=== PATIENT | male | born 1970 ===

== ENCOUNTER 2016-05-18 09:09 | Emergency (ER) | payer OTHER ==
[2016-05-18 09:09] VITALS: BMI 30.7
[2016-05-18 09:21] VITALS: O2SAT 98
--- NOTE | 2016-05-18 09:32 | C.PDOC ---
History Of Present Illness 45 yr old male presents to the ER with complaints of exacerbated back pain since 03/2016. Patient states the pain is similar to prior pain. States the pain initially started 2 years ago but would only last several weeks and spontaneously resolved but the current pain is more persistent. Patient states the pain is generalized lower back, describes it as "burning". Also saw PMD for same pain and had a LS Spine XRay on 05/03/2016 which showed degenerative changes. PMD informed patient his US had blood in urine, "maybe kidney stones?" . Patient denies fever, nausea, vomiting, abdominal pain, diarrhea, dysuria, polyuria, weakness or numbness. Patient states the pain is worse when he is sitting. EXAC BACK PAIN SINCE 03/2016. PS SIM TO PRIOR, INITIALLY FIRST STARTED 2 YRS AGO BUT WOULD ONLY LAST SEV WEEKS THEN SPONT RESOLVED. CURRENT PAIN MORE PERSIST. GENERALIZED LOWER BACK, "BURNING". SAW PMD FOR SAME. LS SPINE 05/03/16 = DEGEN CHANGES. PT PMD TOLD HIM UA HAD BLOOD IN URINE "MAYBE KIDNEY STONE?". DENIES DYSURIA, POLYURIA. PAIN WORSE WHEN SITTING. NO ASSOC WEAK NUMB, WT LOSS EXAM NAD BACK NONTEND, AROM WO DIFF NO CVAT REMAINDER NEG Time Seen by Provider: 05/18/16 09:31 Chief Complaint (Nursing): Back Pain History Per: Patient History/Exam Limitations: no limitations Onset/Duration Of Symptoms: Persistent (since 03/2016) Current Symptoms Are (Timing): Still Present Past Medical History Reviewed: Historical Data, Nursing Documentation, Vital Signs Vital Signs: Last Vital Signs Temp 98.0 F 05/18/16 12:28 Pulse 89 05/18/16 12:28 Resp 20 05/18/16 12:28 BP 122/84 05/18/16 12:28 Pulse Ox 98 05/18/16 12:28 - Medical History PMH: Pneumonia Family History: States: No Known Family Hx - Social History Hx Tobacco Use: No Hx Alcohol Use: Yes Hx Substance Use: No - Immunization History Hx Tetanus Toxoid Vaccination: No Hx Influenza Vaccination: No Hx Pneumococcal Vaccination: No Review Of Systems Except As Marked, All Systems Reviewed And Found Negative. Constitutional: Negative for: Fever Gastrointestinal: Negative for: Nausea, Vomiting, Abdominal Pain, Diarrhea Genitourinary: Positive for: Other (No polyuria). Negative for: Dysuria Musculoskeletal: Positive for: Back Pain (Low back pain) Neurological: Negative for: Weakness, Numbness Physical Exam - Physical Exam Appears: Non-toxic, No Acute Distress Skin: Warm, Dry Head: Atraumatic, Normacephalic Eye(s): bilateral: Normal Inspection, PERRL, EOMI Neck: Normal, Normal ROM, No Paracervical Tenderness, No Step Off Deformity, Supple Chest: Symmetrical, No Tenderness Cardiovascular: Rhythm Regular, No Murmur Respiratory: Normal Breath Sounds, No Rales, No Rhonchi, No Stridor, No Wheezing Gastrointestinal/Abdominal: Normal Exam, Soft, No Tenderness, No Guarding, No Rebound Back: Normal Inspection, No CVA Tenderness, No Vertebral Tenderness, No Decreased ROM, No Paraspinal Tenderness Extremity: Normal ROM, No Swelling Neurological/Psych: Oriented x3, Normal Speech, Normal Motor ED Course And Treatment O2 Sat by Pulse Oximetry: 98 - CT Scan/US CT - Abd & Pelvis Other Rad Studies (CT/US): Read By Radiologist, Radiology Report Reviewed CT/US Interpretation: PROCEDURE: CT Abdomen and Pelvis without Oral or IV contrast. HISTORY: FLANK PAIN, HEMATURIA. COMPARISON: CT abdomen and pelvis without contrast performed 07/09/15. TECHNIQUE: Contiguous axial images of the abdomen and pelvis. No oral or IV contrast administered. Coronal and Sagittal reformats generated and reviewed. Radiation dose: Total exam DLP = 594.30 mGy- cm. FINDINGS: There is limited evaluation of the solid organs without the administration of IV contrast. LOWER THORAX: Subtle air trapping at the right lung base may reflect small vessel/small airways disease. No visible consolidation, pleural effusion, or pneumothorax. Mild distal esophageal wall thickening/tiny hiatal hernia. LIVER: Unremarkable unenhanced appearance. GALLBLADDER AND BILE DUCTS: Unremarkable unenhanced appearance. PANCREAS: Unremarkable unenhanced appearance. SPLEEN: Unremarkable unenhanced appearance. ADRENALS: Unremarkable unenhanced appearance. KIDNEYS AND URETERS : No hydronephrosis or obstructing renal calculus. BLADDER: Under distention of the urinary bladder limits evaluation. REPRODUCTIVE: Unremarkable. APPENDIX: The appendix appears within normal limits of caliber. No secondary signs of acute appendicitis. BOWEL: The stomach is nondistended. Lack of oral contrast limits evaluation for bowel pathology. The bowel loops appear within normal limits of caliber without evidence of intestinal obstruction. Moderate constipation. PERITONEUM: No significant free fluid. No definite free air. LYMPH NODES: No bulky lymphadenopathy identified. VASCULATURE: No aortic aneurysm. BONES: No acute osseous abnormality is detected. OTHER FINDINGS: None. IMPRESSION: Subtle air trapping at the right lung base may reflect small vessel/small airways disease. Moderate constipation. Mild distal esophageal wall thickening/tiny hiatal hernia. Progress - Re-Evaluation Re-evaluation Note: 05/18/16 12:13 ADVISED FU PMD, POSSIBLE NEPHRO - Data Reviewed Data Reviewed: Lab, Diagnostic imaging, Old records - Continuity of Care Discussed patient case with:: Patient Medical Decision Making Medical Decision Making: PLAN: * CT - Abd & Pelvis * Urinalysis Disposition Counseled Patient/Family Regarding: Studies Performed, Diagnosis, Need For Followup, Rx Given - Disposition Referrals: YOUR,P[facility] [Other] [facility] [Outside] Disposition: HOME/ ROUTINE Disposition Time: 12:14 Condition: GOOD Prescriptions: Acetaminophen/Codeine [Tylenol/Codeine 300 MG/30 MG] 2 tab PO Q6H #20 tab Instructions: Acute Hematuria (ED), Chronic Back Pain (ED) - Clinical Impression Clinical Impression: Hematuria, Chronic back pain - Scribe Statement The provider has reviewed the documentation as recorded by the Chelseaibclau Schuler Provider Attestation: All medical record entries made by the Chelseaibclau were at my direction and personally dictated by me. I have reviewed the chart and agree that the record accurately reflects my personal performance of the history, physical exam, medical decision making, and the department course for this patient. I have also personally directed, reviewed, and agree with the discharge instructions and disposition.
[2016-05-18 10:06] LABS: RBC URINE 7 /hpf (0-3); URINE BILIRUBIN NEGATIVE (NEGATIVE); URINE BLOOD 2+ (NEGATIVE); URINE COLOR Yellow (YELLOW); URINE GLUCOSE (UA) NORMAL (Normal); URINE KETONE NEGATIVE (NEGATIVE); URINE LEUKOCYTE ESTERASE NEG Leu/uL (Negative); URINE PROTEIN NEGATIVE (NEGATIVE); URINE UROBILINOGEN NORMAL mg/dL (0.2-1.0); WBC URINE < 1 /hpf (0-5)
--- NOTE | 2016-05-18 11:59 | CT ---
PROCEDURE: CT Abdomen and Pelvis without Oral or IV contrast. HISTORY: FLANK PAIN, HEMATURIA COMPARISON: CT abdomen and pelvis without contrast performed 07/09/15 TECHNIQUE: Contiguous axial images of the abdomen and pelvis. No oral or IV contrast administered. Coronal and Sagittal reformats generated and reviewed. Radiation dose: Total exam DLP = 594.30 mGy-cm. FINDINGS: There is limited evaluation of the solid organs without the administration of IV contrast. LOWER THORAX: Subtle air trapping at the right lung base may reflect small vessel/small airways disease. No visible consolidation, pleural effusion, or pneumothorax. Mild distal esophageal wall thickening/tiny hiatal hernia. LIVER: Unremarkable unenhanced appearance. GALLBLADDER AND BILE DUCTS: Unremarkable unenhanced appearance. PANCREAS: Unremarkable unenhanced appearance. SPLEEN: Unremarkable unenhanced appearance. ADRENALS: Unremarkable unenhanced appearance. KIDNEYS AND URETERS: No hydronephrosis or obstructing renal calculus. BLADDER: Under distention of the urinary bladder limits evaluation. REPRODUCTIVE: Unremarkable. APPENDIX: The appendix appears within normal limits of caliber. No secondary signs of acute appendicitis. BOWEL: The stomach is nondistended. Lack of oral contrast limits evaluation for bowel pathology. The bowel loops appear within normal limits of caliber without evidence of intestinal obstruction. Moderate constipation. PERITONEUM: No significant free fluid. No definite free air. LYMPH NODES: No bulky lymphadenopathy identified. VASCULATURE: No aortic aneurysm. BONES: No acute osseous abnormality is detected. OTHER FINDINGS: None. IMPRESSION: Subtle air trapping at the right lung base may reflect small vessel/small airways disease. Moderate constipation. Mild distal esophageal wall thickening/tiny hiatal hernia.
[2016-05-18 12:30] VITALS: BP 122/84; PULSE 89; RESP 20; TEMP 98
== END 2016-05-18 12:28 | disposition home or self-care (01) ==
LOC: C.ER 09:09
DX: G89.29 Other chronic pain (principal); M54.5 Low back pain; R31.9 Hematuria, unspecified

== ENCOUNTER 2017-03-27 12:13 | Emergency (ER) | payer SELFPAY ==
[2017-03-27 12:14] VITALS: BMI 29.4
[2017-03-27 12:54] VITALS: BP 112/79
--- NOTE | 2017-03-27 13:03 | C.PDOC ---
History Of Present Illness 46-year-old male, presents to the emergency department with complaints at this time five day duration of cough, subjective fever, runny nose. States someone at home with similar symptoms. Denies vomiting, diarrhea, rash, travel, chest pain, shortness of breath, or any other associated symptoms. No other complaints at this time. Time Seen by Provider: 03/27/17 12:59 Chief Complaint (Nursing): Flu-like Symptoms History Per: Patient History/Exam Limitations: no limitations Past Medical History Reviewed: Historical Data, Nursing Documentation, Vital Signs Vital Signs: Last Vital Signs Temp 98.7 F 03/27/17 14:35 Pulse 89 03/27/17 14:35 Resp 16 03/27/17 14:35 BP 112/79 03/27/17 12:49 Pulse Ox 98 03/27/17 14:35 - Medical History PMH: Pneumonia Denies: Asthma (PT DENIES), HTN (PT DENIES) Family History: States: No Known Family Hx - Social History Hx Tobacco Use: No Hx Alcohol Use: Yes Hx Substance Use: No - Immunization History Hx Tetanus Toxoid Vaccination: No Hx Influenza Vaccination: No Hx Pneumococcal Vaccination: No Review Of Systems Constitutional: Positive for: Fever ENT: Negative for: Nose Discharge Respiratory: Positive for: Cough. Negative for: Shortness of Breath Gastrointestinal: Negative for: Vomiting Physical Exam - Physical Exam Appears: Non-toxic, No Acute Distress Skin: Warm, Dry, No Rash Head: Atraumatic, Normacephalic Eye(s): bilateral: Normal Inspection, PERRL, EOMI Nose: Normal Oral Mucosa: Moist Lips: Normal Appearing Throat: No Erythema, No Exudate Neck: Normal ROM, Supple Chest: Symmetrical Cardiovascular: Rhythm Regular, No Friction Rub, No Murmur Respiratory: Normal Breath Sounds, No Accessory Muscle Use, No Rales, No Rhonchi , No Wheezing Gastrointestinal/Abdominal: Soft, No Tenderness Extremity: Normal ROM, No Swelling Neurological/Psych: Oriented x3, Normal Speech, Normal Cranial Nerves, Normal Motor Gait: Steady ED Course And Treatment O2 Sat by Pulse Oximetry: 99 (RA) Pulse Ox Interpretation: Normal Disposition - Disposition Referrals: [facility] [Outside] Disposition: HOME/ ROUTINE Disposition Time: 14:15 Condition: GOOD Additional Instructions: Follow up with the medical doctor within 1-2 days. Return if worsened. Prescriptions: Acetaminophen [Tylenol] 325 mg PO Q6 PRN #30 tab PRN Reason: Pain, Mild (1-3) Loratadine [Claritin] 10 mg PO DAILY #10 tab predniSONE [Prednisone] 20 mg PO BID #10 tab Instructions: Viral Syndrome (ED) Forms: [employer] (Afghan) - Clinical Impression Clinical Impression: Influenza-like illness - Scribe Statement The provider has reviewed the documentation as recorded by the Scribe (Shara Pickett) All medical record entries made by the Scribe were at my direction and personally dictated by me. I have reviewed the chart and agree that the record accurately reflects my personal performance of the history, physical exam, medical decision making, and the department course for this patient. I have also personally directed, reviewed, and agree with the discharge instructions and disposition.
--- NOTE | 2017-03-27 13:51 | RAD ---
HISTORY: cough, fever COMPARISON: None available. TECHNIQUE: Chest PA and lateral FINDINGS: LUNGS: No focal consolidation. Please note that chest x-ray has limited sensitivity for the detection of pulmonary masses. PLEURA: No significant pleural effusion identified. No definite pneumothorax . CARDIOVASCULAR: The cardiomediastinal silhouette appears within normal limits of size. OSSEOUS STRUCTURES: No acute osseous abnormality identified. VISUALIZED UPPER ABDOMEN: Unremarkable. OTHER FINDINGS: None. IMPRESSION: No focal consolidation, significant pleural effusion, or definite pneumothorax identified.
[2017-03-27 14:36] VITALS: PULSE 89; RESP 16; TEMP 98.7
[2017-03-27 23:46] VITALS: O2SAT 99
== END 2017-03-27 14:35 | disposition home or self-care (01) ==
LOC: C.ER 12:13
DX: J11.1 Influenza due to unidentified influenza virus with other respiratory manifestations (principal)

== ENCOUNTER 2017-05-11 10:26 | Emergency (ER) | payer SELFPAY ==
[2017-05-11 10:26] VITALS: BMI 29.4
[2017-05-11 10:36] VITALS: RESP 18; O2SAT 98
--- NOTE | 2017-05-11 12:12 | C.PDOC ---
History Of Present Illness 46 y/o male presents to the emergency room complaining of room-spinning sensation since 6:00 this morning. States he had vertigo 3 years ago. Patient describes sensation of things spinning when he turns his head left, and feels off-balance when walking. No nausea, vomiting, fever, or headache. Time Seen by Provider: 05/11/17 11:49 Chief Complaint (Nursing): Dizziness/Lightheaded History Per: Patient History/Exam Limitations: no limitations Onset/Duration Of Symptoms: Hrs Current Symptoms Are (Timing): Still Present Fall Associated With With Symptoms: No Past Medical History Reviewed: Historical Data, Nursing Documentation, Vital Signs Vital Signs: Last Vital Signs Temp 98.6 F 05/11/17 11:46 Pulse 72 05/11/17 11:46 Resp 18 05/11/17 11:46 BP 129/86 05/11/17 11:46 Pulse Ox 98 05/11/17 14:39 - Medical History PMH: Benign Prostatic Hyperplasia, Pneumonia Denies: Asthma (PT DENIES) Comment Only: HTN (PT DENIES) Other PMH: Vertigo Surgical History: No Surg Hx Family History: States: Unknown Family Hx - Social History Hx Tobacco Use: No Hx Alcohol Use: Yes Hx Substance Use: No - Immunization History Hx Tetanus Toxoid Vaccination: No Hx Influenza Vaccination: No Hx Pneumococcal Vaccination: No Review Of Systems Constitutional: Negative for: Fever Gastrointestinal: Negative for: Nausea, Vomiting Neurological: Positive for: Dizziness (room spinning). Negative for: Headache Physical Exam - Physical Exam Appears: No Acute Distress Skin: Warm, Dry, No Rash Head: Atraumatic, Normacephalic Eye(s): bilateral: PERRL, EOMI (with a few extra beats of nystagmus bilaterally) Ear(s): Bilateral: Normal Nose: Normal Neck: Supple Chest: No Tenderness Cardiovascular: Rhythm Regular, No Murmur Respiratory: No Rales, No Rhonchi, No Wheezing, Other (clear to auscultation bilaterally) Extremity: Bilateral: Atraumatic, Normal Color And Temperature, Normal ROM Neurological/Psych: Oriented x3, Normal Speech, Normal Cranial Nerves, Normal Motor, Normal Sensation, Other (ROBERT intact, finger to nose intact, no pronator drift) Gait: Steady ED Course And Treatment ECG: Interpreted By Me, Viewed By Me ECG Rhythm: Sinus Rhythm ECG Interpretation: Normal Rate From EC O2 Sat by Pulse Oximetry: 98 (RA) Pulse Ox Interpretation: Normal Medical Decision Making Medical Decision Making: Time: 12:22 Initial Plan: * Meclizine 25 mg PO * Reevaluation 230 pm pt feeling better after meclizine. gait steady, has mild residual vertigo hen looking left. will d/c home wiht meclizine, neuro and med f/u Disposition Counseled Patient/Family Regarding: Diagnosis, Need For Followup, Rx Given - Disposition Referrals: Consuelo Calero MD [Staff Provider] - Rebekah Barth MD [Staff Provider] - Disposition: HOME/ ROUTINE Disposition Time: 14:37 Condition: IMPROVED Additional Instructions: Please take medication as prescribed. Follow up with Neurologist Dr Calero and with Dr Barth in medical clinic. Return to ER for any worse symptoms. Prescriptions: Meclizine [Meclizine*] 25 mg PO Q6 #30 tab Instructions: Vertigo (a Type of Dizziness) (DC), Vestibular Exercises Forms: [employer] (Kazakh), General Discharge Instructions - Clinical Impression Clinical Impression: Vertigo - PA / ANALYSIS CONSULTANT / Resident Statement MD/DO has reviewed & agrees with the documentation as recorded. - Scribe Statement The provider has reviewed the documentation as recorded by the Scribe (Iris Brooks) All medical record entries made by the Scribe were at my direction and personally dictated by me. I have reviewed the chart and agree that the record accurately reflects my personal performance of the history, physical exam, medical decision making, and the department course for this patient. I have also personally directed, reviewed, and agree with the discharge instructions and disposition.
[2017-05-11 15:25] VITALS: BP 122/79; PULSE 80; TEMP 97.9
--- NOTE | 2017-05-14 16:38 | CARD ---
APPROVED REPORT EKG Measurement Heart [id number] <Conclusion> Normal sinus rhythm with sinus arrhythmia Normal ECG
--- NOTE | 2017-05-14 16:38 | CARD ---
APPROVED REPORT EKG Measurement Heart [id number] MI [id number] <Conclusion> Normal sinus rhythm Normal ECG
== END 2017-05-11 15:24 | disposition home or self-care (01) ==
LOC: C.ER 10:26
DX: R42 Dizziness and giddiness (principal); N40.0 Benign prostatic hyperplasia without lower urinary tract symptoms

== ENCOUNTER 2017-09-02 08:29 | Emergency (ER) | payer SELFPAY ==
[2017-09-02 08:30] VITALS: BMI 29.4
[2017-09-02] MEDS ORDERED: Sodium Chloride 0.9% 1,000 ML IV ONE (08:50)
[2017-09-02] MEDS ORDERED: Sodium Chloride 0.45% 1,000 ML IV ONE (09:13)
[2017-09-02 09:19] LABS: BASO % 0.7 % (0.0-2.0); EOS # 0.1 K/uL (0.0-0.7); EOS % 1.6 % (0.0-4.0); HEMOGLOBIN 14.6 g/dL (12.0-18.0); LYMPH # 2.1 K/uL (1.0-4.3); LYMPH % 31.3 % (20.0-40.0); MEAN CELL VOLUME 83.7 fL (80.0-94.0); MEAN CORPUSCULAR HEMOGLOBIN 28.6 pg (27.0-31.0); MEAN CORPUSCULAR HGB CONC 34.1 g/dL (33.0-37.0); MEAN PLATELET VOLUME 7.8 fL (7.2-11.7); MONO # 0.4 K/uL (0.0-0.8); MONO % 6.1 % (0.0-10.0); NEUT # 4.1 K/uL (1.8-7.0); NEUT % 60.3 % (50.0-75.0); RBC 5.11 Mil/uL (4.40-5.90); RED CELL DISTRIBUTION WIDTH 13.5 % (11.5-14.5); WHITE BLOOD COUNT 6.7 K/uL (4.8-10.8)
[2017-09-02 09:25] LABS: URINE BILIRUBIN NEGATIVE (NEGATIVE); URINE BLOOD 1+ (NEGATIVE); URINE CLARITY Clear (Clear); URINE COLOR Yellow (YELLOW); URINE GLUCOSE (UA) NORMAL (Normal); URINE LEUKOCYTE ESTERASE NEG Leu/uL (Negative); URINE PROTEIN NEGATIVE (NEGATIVE)
[2017-09-02 09:38] LABS: ALB/GLOB RATIO 1.4 (1.0-2.1); ALBUMIN 4.2 g/dL (3.5-5.0); ALT/SGPT 36 U/L (21-72); AST/SGOT 29 U/L (17-59); BLOOD UREA NITROGEN 12 mg/dL (9-20); CALCIUM 8.6 mg/dl (8.6-10.4); GFR AFRICAN-AMERICAN > 60; GFR NON-AFRICAN AMERICAN > 60; LIPASE 94 U/L (23-300)
--- NOTE | 2017-09-02 10:01 | C.PDOC ---
History Of Present Illness 47 yo male come in for evaluation of intermittent Right flank pain for past 3 days. Pt sts, pain was relived by Naproxyn at home " but today medication did not help and pain radiating to my stomach area". Pt reports, pain is constant since this AM, nausea, non-radiating. Otherwise, pt denies fever, chills, sore throat, CP, SOB, dyspnea, abd. pain, V/D, UTI sx, hematuria. Denies previous hx of kidney stones. Ambulate to Ed for evaluation, appears in pain. Time Seen by Provider: 09/02/17 08:37 Chief Complaint (Nursing): Abdominal Pain History Per: Patient Past Medical History Reviewed: Historical Data, Nursing Documentation, Vital Signs Vital Signs: Last Vital Signs Temp 98.2 F 09/02/17 08:40 Pulse 94 H 09/02/17 08:40 Resp 18 09/02/17 08:40 BP 154/76 H 09/02/17 08:40 Pulse Ox 98 09/02/17 08:40 - Medical History PMH: Arthritis, Benign Prostatic Hyperplasia, Pneumonia Denies: Asthma (PT DENIES) Comment Only: HTN (PT DENIES) Family History: States: Unknown Family Hx - Social History Hx Tobacco Use: No Hx Alcohol Use: Yes Hx Substance Use: No - Immunization History Hx Tetanus Toxoid Vaccination: No Hx Influenza Vaccination: No Hx Pneumococcal Vaccination: No Review Of Systems Except As Marked, All Systems Reviewed And Found Negative. Constitutional: Negative for: Fever, Chills Eyes: Negative for: Vision Change ENT: Negative for: Throat Pain, Throat Swelling Cardiovascular: Negative for: Chest Pain, Palpitations Respiratory: Negative for: Cough, Shortness of Breath, Wheezing Gastrointestinal: Positive for: Nausea. Negative for: Vomiting, Abdominal Pain , Diarrhea Genitourinary: Negative for: Dysuria, Frequency, Incontinence Musculoskeletal: Positive for: Back Pain Skin: Negative for: Rash Neurological: Negative for: Altered Mental Status, Headache, Dizziness Physical Exam - Physical Exam Appears: Well, Non-toxic, No Acute Distress Skin: Normal Color, Warm, Dry, No Rash Head: Normacephalic Eye(s): bilateral: PERRL Nose: No Flaring, No Discharge Oral Mucosa: Moist Throat: No Erythema, No Drooling Neck: Trachea Midline, Supple Cardiovascular: Rhythm Regular, No Murmur, No JVD Respiratory: No Decreased Breath Sounds, No Accessory Muscle Use, No Stridor, No Wheezing Gastrointestinal/Abdominal: Soft, Tenderness (mild RUQ tenderness), No Distention, No Guarding, No Rebound Back: No CVA Tenderness, Other (Right flank tenderness) Extremity: Normal ROM, No Pedal Edema, No Deformity, No Swelling Neurological/Psych: Oriented x3, Normal Speech ED Course And Treatment - Laboratory Results Result Diagrams: 09/02/17 09:15 09/02/17 09:15 Lab Interpretation: Normal O2 Sat by Pulse Oximetry: 98 Pulse Ox Interpretation: Normal - CT Scan/US CT abd/pelvis Other Rad Studies (CT/US): Interpreted By Me CT/US Interpretation: Creator : Andrzej Greco MD. Dictator : Sparmaker : Discharge Rn : Andrzej Greco MD. Approver2 : Report Date : 09/02/2017 10: 40:48. My Comment : . PROCEDURE: CT Abdomen and Pelvis with Oral contrast. HISTORY: Right flank pain. COMPARISON: Comparison made with CT scan abdomen pelvis 05/18/2016. TECHNIQUE: Contiguous axial images of the abdomen and pelvis are performed without oral or intravenous contrast material. Additional 2D sagittal and coronal reformats generated. . Radiation dose: Total exam DLP = 542.96 mGy-cm. This CT exam was performed using one or more of the following dose reduction techniques: Automated exposure control, adjustment of the mA and/or kV according to patient size, and/or use of iterative reconstruction technique. FINDINGS: LOWER THORAX: Heart size normal. No significant pericardial effusion. There is a tiny hiatal hernia. Lung bases clear. LIVER: Unremarkable. No gross lesion or ductal dilatation. GALLBLADDER AND BILE DUCTS: Unremarkable. PANCREAS: Unremarkable. No mass. No ductal dilatation. SPLEEN: Unremarkable. No splenomegaly. ADRENALS: Unremarkable. KIDNEYS AND URETERS: Unremarkable. No stone or hydronephrosis. No renal mass or collection. BLADDER: Urinary bladder incompletely distended which in part accounts slight thick-walled appearance. . Muscular hypertrophy presumably contributes. Correlation with urinalysis suggested. REPRODUCTIVE: Unremarkable. APPENDIX: Normal appendix best seen on coronal image 57- 63. BOWEL: Evaluation of the bowel is somewhat limited due to the lack of oral contrast material. Stomach is relatively collapsed. Visualized loops small bowel exhibit normal contour and caliber. However common there is fecalized content seen within multiple loops of small bowel suggesting stasis. . Stool and air seen throughout the large bowel. No definitive evidence of abnormal mural wall thickening. PERITONEUM: Unremarkable. No fluid collection. No free air. Small fat containing umbilical hernia. LYMPH NODES: Unremarkable. No enlarged lymph nodes. VASCULATURE: Unremarkable. No aortic aneurysm. BONES: No fracture or destructive lesion. OTHER FINDINGS: None. IMPRESSION: No acute intra abdominal pathology specifically, there is no evidence of nephrolithiasis. No evidence of cholelithiasis or appendicitis. Progress Note: On re-eval, pt is afebrile, hemodynamicaly stable. Non-toxic. ENT: no acute findings. neck: SUpple. Lungs: CTA B/L, BS equal B/L. Abd: benign, (-) guarding, (-) rebound. back: (-) CVA tenderness. Neurologicaly intact. Blood owrk review- no acute finidngs. UA (+) RBC. CT abd/plevis review- no acute abnormal findings. Pt advised. ref. to F/u with PMD in2 -3 days for re-eavl. return if any new changes. Disposition Counseled Patient/Family Regarding: Studies Performed, Diagnosis, Need For Followup, Rx Given - Disposition Referrals: [facility] [Outside] Disposition: HOME/ ROUTINE Disposition Time: 10:45 Condition: STABLE Additional Instructions: LIgt duty, avoid heavy lifting for 1 week Take medication as prescribed Follow up with PMD in 2-3 days for re-evaluation return to ED if any worsening or new changes. Prescriptions: Methocarbamol [Robaxin] 500 mg PO TID #14 tab traMADol [Ultram] 50 mg PO TID #7 tab Instructions: Flank Pain Print Language: ENGLISH - Clinical Impression Clinical Impression: Flank pain
--- NOTE | 2017-09-02 10:42 | CT ---
PROCEDURE: CT Abdomen and Pelvis with Oral contrast. HISTORY: Right flank pain COMPARISON: Comparison made with CT scan abdomen pelvis 05/18/2016 TECHNIQUE: Contiguous axial images of the abdomen and pelvis are performed without oral or intravenous contrast material. Additional 2D sagittal and coronal reformats generated. . Radiation dose: Total exam DLP = 542.96 mGy-cm. This CT exam was performed using one or more of the following dose reduction techniques: Automated exposure control, adjustment of the mA and/or kV according to patient size, and/or use of iterative reconstruction technique. FINDINGS: LOWER THORAX: Heart size normal. No significant pericardial effusion. There is a tiny hiatal hernia. Lung bases clear. LIVER: Unremarkable. No gross lesion or ductal dilatation. GALLBLADDER AND BILE DUCTS: Unremarkable. PANCREAS: Unremarkable. No mass. No ductal dilatation. SPLEEN: Unremarkable. No splenomegaly. ADRENALS: Unremarkable. KIDNEYS AND URETERS: Unremarkable. No stone or hydronephrosis. No renal mass or collection. BLADDER: Urinary bladder incompletely distended which in part accounts slight thick-walled appearance. . Muscular hypertrophy presumably contributes. Correlation with urinalysis suggested REPRODUCTIVE: Unremarkable. APPENDIX: Normal appendix best seen on coronal image 57- 63. BOWEL: Evaluation of the bowel is somewhat limited due to the lack of oral contrast material. Stomach is relatively collapsed. Visualized loops small bowel exhibit normal contour and caliber. However common there is fecalized content seen within multiple loops of small bowel suggesting stasis. . Stool and air seen throughout the large bowel. No definitive evidence of abnormal mural wall thickening. PERITONEUM: Unremarkable. No fluid collection. No free air. Small fat containing umbilical hernia. LYMPH NODES: Unremarkable. No enlarged lymph nodes. VASCULATURE: Unremarkable. No aortic aneurysm. BONES: No fracture or destructive lesion. OTHER FINDINGS: None. IMPRESSION: No acute intra abdominal pathology specifically, there is no evidence of nephrolithiasis. No evidence of cholelithiasis or appendicitis.
[2017-09-02 11:05] VITALS: BP 122/71; PULSE 86; RESP 20; TEMP 98.9; O2SAT 100
== END 2017-09-02 11:10 | disposition home or self-care (01) ==
LOC: C.ER 08:29
DX: R10.9 Unspecified abdominal pain (principal)
CPT/HCPCS: 74176; 80053; 81001; 83690; 85025; 96361; 96374; 99285; J1885; J7030

== ENCOUNTER 2017-10-24 17:10 | Emergency (ER) | payer SELFPAY ==
[2017-10-24 17:10] VITALS: BMI 29.4
[2017-10-24 17:16] VITALS: RESP 18
--- NOTE | 2017-10-24 18:16 | C.PDOC ---
History Of Present Illness 47 y/o male presents to the ED complaining of mid back pain that started on Sunday. He states he took Naprosyn at home without significant relief. Patient has a h/o of back pain in the same spot intermittently for 1+ year. He had a similar exacerbation of pain 7 weeks ago after living a heavy box at which time he had negative XR results and was given a shot with improvement. Also reports he had an MRI of the thoracic spine on 03/12/17 which was unremarkable. Patient also completed physical therapy and since then, the pain has been intermittent. Otherwise he denies chest pain, SOB, weakness, numbness, change in sensation, paresthesias, leg swelling, dysuria, frequency, or incontinence. Time Seen by Provider: 10/24/17 17:44 Chief Complaint (Nursing): Back Pain History Per: Patient History/Exam Limitations: no limitations Onset/Duration Of Symptoms: Intermittent Episodes Current Symptoms Are (Timing): Still Present Previous Symptoms: Back Pain Past Medical History Reviewed: Historical Data, Nursing Documentation, Vital Signs Vital Signs: Last Vital Signs Temp 99.0 F 10/24/17 18:41 Pulse 97 H 10/24/17 18:41 Resp 18 10/24/17 18:41 BP 109/69 10/24/17 18:41 Pulse Ox 97 10/24/17 18:41 - Medical History PMH: Arthritis, Benign Prostatic Hyperplasia, Pneumonia Denies: Asthma (PT DENIES) Comment Only: HTN (PT DENIES) Family History: States: Unknown Family Hx - Social History Hx Tobacco Use: No Hx Alcohol Use: Yes Hx Substance Use: No - Immunization History Hx Tetanus Toxoid Vaccination: No Hx Influenza Vaccination: No Hx Pneumococcal Vaccination: No Review Of Systems Constitutional: Negative for: Fever, Chills Cardiovascular: Negative for: Chest Pain Respiratory: Negative for: Shortness of Breath Gastrointestinal: Negative for: Nausea, Vomiting, Abdominal Pain Genitourinary: Negative for: Dysuria, Frequency, Incontinence Musculoskeletal: Positive for: Back Pain Skin: Negative for: Rash Neurological: Negative for: Weakness, Numbness, Incoordination Physical Exam - Physical Exam Appears: Non-toxic, No Acute Distress Skin: Normal Color, Warm, Dry Head: Atraumatic, Normacephalic Eye(s): bilateral: Normal Inspection, EOMI Oral Mucosa: Moist Neck: Normal ROM Chest: Symmetrical Cardiovascular: Rhythm Regular Respiratory: Normal Breath Sounds, No Accessory Muscle Use Gastrointestinal/Abdominal: Soft, No Tenderness Back: No Vertebral Tenderness, Paraspinal Tenderness (to bilateral parathoracic regions), No Straight Leg Raising Extremity: Normal ROM Extremity: Bilateral: Atraumatic, Normal ROM Pulses: Left Dorsalis Pedis: Normal, Right Dorsalis Pedis: Normal Neurological/Psych: Oriented x3, Normal Speech, Normal Motor, Normal Sensation ED Course And Treatment O2 Sat by Pulse Oximetry: 95 (RA) Pulse Ox Interpretation: Normal Progress Note: Administered 30 mg IM Toradol. On reassessment, patient is resting comfortably, with improvement of back pain. Patient remains afebrile, with no bony tenderness, extremity numbness or weakness, or chest/ abdominal pain. Patient is ambulatory in the emergency department with no signs of discomfort. Patient was advised to follow up with physician/clinic in 1-2 days. Case discussed with Dr Cardona, agreed upon plan and discharge. Reassessment Condition: Improved Disposition - Disposition Referrals: [facility] [Outside] Disposition: HOME/ ROUTINE Disposition Time: 18:13 Condition: STABLE Additional Instructions: Follow up with your doctor in 1-2 days. Return to ER if symptoms persist or worsen. 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 - Scribe Statement The provider has reviewed the documentation as recorded by the Scribe (Iris Brooks) All medical record entries made by the Scribe were at my direction and personally dictated by me. I have reviewed the chart and agree that the record accurately reflects my personal performance of the history, physical exam, medical decision making, and the department course for this patient. I have also personally directed, reviewed, and agree with the discharge instructions and disposition.
--- NOTE | 2017-10-24 18:29 | C.PDOC ---
Time Seen by Provider: 10/24/17 17:44 Chief Complaint (Nursing): Back Pain Past Medical History Vital Signs: Last Vital Signs Temp 98.1 F 10/24/17 17:14 Pulse 106 H 10/24/17 17:14 Resp 18 10/24/17 17:14 BP 152/85 H 10/24/17 17:14 Pulse Ox 95 10/24/17 17:14 - Medical History PMH: Arthritis, Benign Prostatic Hyperplasia, Pneumonia Denies: Asthma (PT DENIES) Comment Only: HTN (PT DENIES) Family History: States: Unknown Family Hx - Social History Hx Tobacco Use: No Hx Alcohol Use: Yes Hx Substance Use: No - Immunization History Hx Tetanus Toxoid Vaccination: No Hx Influenza Vaccination: No Hx Pneumococcal Vaccination: No ED Course And Treatment O2 Sat by Pulse Oximetry: 95 Disposition - Disposition Forms: [employer] (Azeri)
[2017-10-24 18:42] VITALS: BP 109/69; PULSE 97; TEMP 99
[2017-10-25 11:52] VITALS: O2SAT 95
== END 2017-10-24 18:47 | disposition home or self-care (01) ==
LOC: C.ER 17:10
DX: S23.3XXA Sprain of ligaments of thoracic spine, initial encounter (principal); X58.XXXA Exposure to other specified factors, initial encounter
CPT/HCPCS: 96372; 99284; J1885

== ENCOUNTER 2018-02-24 08:51 | Emergency (ER) | payer SELFPAY ==
[2018-02-24 08:51] VITALS: BMI 29.4
[2018-02-24 08:59] VITALS: RESP 20
[2018-02-24] MEDS ORDERED: Oxycodone/Acetaminophen 5/325 mg Tab PO STA (09:04)
--- NOTE | 2018-02-24 09:06 | C.PDOC ---
History Of Present Illness 47 year old male, with history of chronic back pain, presents to ED complaining of right-sided mid-back pain. Patient states he was doing heavy lifting yesterday and now complains of right-sided back muscle spasm pain. States he had recent MRI done and as per patient, there were no acute findings. Patient denies bowel or bladder dysfunction. States he took naprosyn and flexeril with no relief. Patient has micro hematuria in the urine and had extensive workup by urologist. Time Seen by Provider: 02/24/18 09:03 Chief Complaint (Nursing): Back Pain History Per: Patient History/Exam Limitations: no limitations Onset/Duration Of Symptoms: Days Current Symptoms Are (Timing): Still Present Past Medical History Reviewed: Historical Data, Nursing Documentation, Vital Signs Vital Signs: Last Vital Signs Temp 97.5 F L 02/24/18 08:57 Pulse 89 02/24/18 08:57 Resp 20 02/24/18 08:57 BP 113/75 02/24/18 08:57 Pulse Ox 100 02/24/18 08:57 - Medical History PMH: Arthritis, Benign Prostatic Hyperplasia, Pneumonia Denies: Asthma (PT DENIES) Comment Only: HTN (PT DENIES) Surgical History: No Surg Hx Family History: States: No Known Family Hx - Social History Hx Tobacco Use: No Hx Alcohol Use: Yes Hx Substance Use: No - Immunization History Hx Tetanus Toxoid Vaccination: No Hx Influenza Vaccination: No Hx Pneumococcal Vaccination: No Review Of Systems Except As Marked, All Systems Reviewed And Found Negative. Genitourinary: Negative for: Other (Bladder/bowel dysfunction) Musculoskeletal: Positive for: Back Pain (right-sided mid back). Negative for: Neck Pain Physical Exam - Physical Exam Appears: Non-toxic, No Acute Distress Skin: Warm, Dry Head: Atraumatic, Normacephalic Eye(s): bilateral: Normal Inspection, PERRL Oral Mucosa: Moist Neck: Normal ROM Chest: Symmetrical Cardiovascular: Rhythm Regular, No Murmur Respiratory: Normal Breath Sounds, No Rales, No Rhonchi, No Wheezing Gastrointestinal/Abdominal: Soft, No Tenderness Back: Other (Diffused muscular tenderness in right midback) Extremity: Bilateral: Atraumatic, Normal Color And Temperature, Normal ROM Neurological/Psych: Oriented x3, Normal Speech, Normal Cognition, Normal Motor, Normal Sensation, Normal Reflexes, Other (No focal deficits) Gait: Steady ED Course And Treatment O2 Sat by Pulse Oximetry: 100 (RA) Pulse Ox Interpretation: Normal Medical Decision Making Medical Decision Making: Plan: --Percocet 1 tab PO --Urinalysis Disposition - Disposition Disposition: HOME/ ROUTINE Disposition Time: 09:20 Condition: STABLE Prescriptions: Lidocaine 5% [Lidoderm] 1 ea TD DAILY #5 patch Instructions: Upper Back Pain (DC) Forms: General Discharge Instructions, [facility] ([place] Citizen), Work Excuse - POA Present On Arrival: None - Clinical Impression Clinical Impression: Thoracic back pain - Scribe Statement The provider has reviewed the documentation as recorded by the Iesha Chris Provider Attestation: All medical record entries made by the Chelseaibclau were at my direction and personally dictated by me. I have reviewed the chart and agree that the record accurately reflects my personal performance of the history, physical exam, medical decision making, and the department course for this patient. I have also personally directed, reviewed, and agree with the discharge instructions and disposition.
[2018-02-24] MEDS ORDERED: Oxycodone/Acetaminophen 5/325 mg Tab ONE (09:24)
[2018-02-24] MEDS ORDERED: diaZEpam 10 mg/2 ml Inj IM STA (09:30)
[2018-02-24] MEDS ORDERED: MethylPREDNISolone 40 mg Vial IM STA (09:31)
[2018-02-24 10:18] LABS: SQUAMOUS EPITHIAL < 1 /hpf (0-5); URINE BACTERIA RARE (<OCC); URINE BILIRUBIN NEGATIVE (NEGATIVE); URINE BLOOD 2+ (NEGATIVE); URINE CLARITY Hazy (Clear); URINE COLOR Amber (YELLOW); URINE GLUCOSE (UA) NORMAL (Normal); URINE LEUKOCYTE ESTERASE NEG Leu/uL (Negative); URINE PROTEIN 1+ mg/dL (NEGATIVE)
[2018-02-24 10:45] VITALS: BP 107/67; PULSE 78; TEMP 98.5; O2SAT 98
== END 2018-02-24 10:44 | disposition home or self-care (01) ==
LOC: C.ER 08:51
DX: M54.6 Pain in thoracic spine (principal); N40.0 Benign prostatic hyperplasia without lower urinary tract symptoms
CPT/HCPCS: 81001; 96372; 99284; J2920

== ENCOUNTER 2018-03-08 12:16 | Emergency (ER) | payer SELFPAY ==
[2018-03-08 12:16] VITALS: BMI 29.4
[2018-03-08 12:29] VITALS: O2SAT 100
[2018-03-08] MEDS ORDERED: Albuterol-Ipratrop 3 mg / 0.5 (3 ml) UD ONE (13:46)
--- NOTE | 2018-03-08 14:02 | RAD ---
Date of service: 03/08/2018 HISTORY: Right-sided chest pain COMPARISON: 02/06/2018. TECHNIQUE: Chest PA and lateral FINDINGS: LINES AND TUBES: None. LUNG AND PLEURA: The lungs are well inflated and clear. No pleural effusion or pneumothorax. HEART AND MEDIASTINUM: The heart is not enlarged. No aortic atherosclerotic calcification present. The hilar and mediastinal contours are within normal limits. SKELETAL STRUCTURES: The bony structures are within normal limits for the patient's age. VISUALIZED UPPER ABDOMEN: Normal. OTHER FINDINGS: None. IMPRESSION: No acute findings.
[2018-03-08 14:26] LABS: HEMOGLOBIN 15.1 g/dL (12.0-18.0); MEAN CELL VOLUME 84.5 fL (80.0-94.0); MEAN CORPUSCULAR HEMOGLOBIN 28.5 pg (27.0-31.0); MEAN CORPUSCULAR HGB CONC 33.7 g/dL (33.0-37.0); MEAN PLATELET VOLUME 8.1 fL (7.2-11.7); RBC 5.3 Mil/uL (4.40-5.90); RED CELL DISTRIBUTION WIDTH 14.4 % (11.5-14.5); WHITE BLOOD COUNT 7.6 K/uL (4.8-10.8)
[2018-03-08 14:42] LABS: ALB/GLOB RATIO 1.5 (1.0-2.1); ALBUMIN 4.7 g/dL (3.5-5.0); ALT/SGPT 38 U/L (21-72); AST/SGOT 30 U/L (17-59); BLOOD UREA NITROGEN 22 mg/dL (9-20); CALCIUM 8.6 mg/dl (8.6-10.4); GFR NON-AFRICAN AMERICAN > 60
--- NOTE | 2018-03-08 15:03 | C.PDOC ---
History Of Present Illness 47 year old male with a history of back pain presents to the emergency department with complaints of right thoracic pain which radiates from his back into his chest and abdomen. Patient states that he has had a thoracic and lumbar MRI, as well as an abdominal CT scan for the same complaints. He states he was last seen at the end of February for these symptoms. Patient states that the pain began at 6AM today, wiith no preceding exacerbating factor, and denies taking anything at home for the pain, denies shortness of breath, coughing, fever. chills. . Time Seen by Provider: 03/08/18 12:52 Chief Complaint (Nursing): Back Pain History Per: Patient History/Exam Limitations: no limitations Onset/Duration Of Symptoms: Hrs Current Symptoms Are (Timing): Still Present Quality Of Discomfort: "Pain" Previous Symptoms: Back Pain, Chronic Pain Associated Symptoms: denies: Incontinence, New Weakness, New Numbness Past Medical History Reviewed: Historical Data, Nursing Documentation, Vital Signs Vital Signs: Last Vital Signs Temp 98 F 03/08/18 12:26 Pulse 90 03/08/18 12:26 Resp 16 03/08/18 12:26 BP 131/89 03/08/18 12:26 Pulse Ox 100 03/08/18 12:26 - Medical History PMH: Arthritis, Benign Prostatic Hyperplasia, Pneumonia Denies: Asthma (PT DENIES) Comment Only: HTN (PT DENIES) Surgical History: No Surg Hx Family History: States: Unknown Family Hx - Social History Hx Tobacco Use: No Hx Alcohol Use: Yes Hx Substance Use: No - Immunization History Hx Tetanus Toxoid Vaccination: No Hx Influenza Vaccination: No Hx Pneumococcal Vaccination: No Review Of Systems Constitutional: Negative for: Fever, Chills Cardiovascular: Positive for: Chest Pain (from back). Negative for: Edema, Light Headedness Respiratory: Negative for: Cough Gastrointestinal: Positive for: Abdominal Pain. Negative for: Nausea, Vomiting Musculoskeletal: Positive for: Back Pain, Other (chest pain). Negative for: Neck Pain Skin: Negative for: Rash Neurological: Negative for: Weakness, Numbness Physical Exam - Physical Exam Appears: Non-toxic, Other (uncomfortable) Skin: Warm, Dry Head: Atraumatic, Normacephalic Eye(s): bilateral: Normal Inspection, PERRL, EOMI Oral Mucosa: Moist Neck: Normal, Supple Chest: Symmetrical, No Tenderness Cardiovascular: Rhythm Regular, No Murmur Respiratory: No Rales, No Rhonchi, No Wheezing Gastrointestinal/Abdominal: Soft, No Tenderness, No Guarding, No Rebound Back: No Vertebral Tenderness, No Muscle Spasm, No Paraspinal Tenderness (contrary to prior exams) Extremity: Normal ROM Neurological/Psych: Oriented x3, Normal Speech, Normal Cognition, Normal Motor, Normal Sensation ED Course And Treatment - Laboratory Results Result Diagrams: 03/08/18 14:23 03/08/18 14:23 O2 Sat by Pulse Oximetry: 100 (RA) Pulse Ox Interpretation: Normal - CT Scan/US chest Other Rad Studies (CT/US): Read By Radiologist, Radiology Report Reviewed CT/US Interpretation: IMPRESSION: Unremarkable CT pulmonary angiogram. No pulmonary embolus. Medical Decision Making Medical Decision Making: Plan: CT Angio Chest CMP CBC CXR Given lack of reproducible tenderness or muscles spasms, will order CT Angio Chest to eval for pe and aneurysm Previous abdominal CT on 09/19 showed no aortic aneurysm. 1748 pt with no pe or aneurysm. resolved pain after iv toradol. d/c home with musculoskeletal pain, nsaids, pmd f/u. Disposition Counseled Patient/Family Regarding: Studies Performed, Diagnosis, Need For Followup, Rx Given - Disposition Referrals: Rebekah Barth MD [Staff Provider] - Disposition: HOME/ ROUTINE Disposition Time: 17:50 Condition: IMPROVED Additional Instructions: Follow up with Dr Barth as soon as possible. Use lidoderm patches for 12 hours on and 12 hours off. . Take ibuprofen for pain. Use muscle relaxant if needed. Avoid heavy lifting. Prescriptions: Cyclobenzaprine [Cyclobenzaprine HCl] 10 mg PO Q8 #9 tab Ibuprofen [Motrin] 600 mg PO TID #30 tab Lidocaine 5% [Lidoderm] 1 ea TD DAILY #6 patch Instructions: Upper Back Pain (DC) Forms: [facility] (Danish), General Discharge Instructions - Clinical Impression Clinical Impression: Thoracic back pain - PA / BOTTOM BUFFER / Resident Statement MD/DO has reviewed & agrees with the documentation as recorded. - Scribe Statement The provider has reviewed the documentation as recorded by the Scribe (Bharath Sinclair) All medical record entries made by the Scribe were at my direction and personally dictated by me. I have reviewed the chart and agree that the record accurately reflects my personal performance of the history, physical exam, medical decision making, and the department course for this patient. I have also personally directed, reviewed, and agree with the discharge instructions and disposition.
[2018-03-08] MEDS ORDERED: Iodixanol 320 MG/ML 100 ML BOTTLE IV ONE (15:44)
--- NOTE | 2018-03-08 17:20 | CT ---
Date of service: 03/08/2018 PROCEDURE: CT Chest with contrast (Pulmonary Angiogram) HISTORY: rigth back pain radiates to chest COMPARISON: None available. TECHNIQUE: Axial computed tomography images were obtained of the chest in the pulmonary arterial phase of enhancement. Coronal and sagittal reformatted images were created and reviewed. Intravenous contrast dose: 100 cc Visipaque 320 Mean Hounsfield value in the main pulmonary artery: 277.03 Radiation dose: Total exam DLP = 615.33 mGy-cm. This CT exam was performed using one or more of the following dose reduction techniques: Automated exposure control, adjustment of the mA and/or kV according to patient size, and/or use of iterative reconstruction technique. FINDINGS: PULMONARY ARTERIES: Unremarkable. No pulmonary embolism. AORTA: No acute findings. No thoracic aortic aneurysm. No atherosclerotic calcification or mural plaque present. LUNGS: Unremarkable. No nodule, mass or pulmonary consolidation. PLEURAL SPACES: Unremarkable. No effusion or pneumothorax. HEART: Unremarkable. No cardiomegaly. No significant pericardial effusion. LYMPH NODES: No lymphadenopathy. BONES, CHEST WALL: Unremarkable. No fracture or destructive lesion OTHER FINDINGS: Unremarkable. IMPRESSION: Unremarkable CT pulmonary angiogram. No pulmonary embolus.
[2018-03-08 17:57] VITALS: BP 116/74; PULSE 18; RESP 18; TEMP 98
== END 2018-03-08 18:10 | disposition home or self-care (01) ==
LOC: C.ER 12:16
DX: M54.6 Pain in thoracic spine (principal)
CPT/HCPCS: 71046; 71275; 80053; 85027; 96374; 99283; J1885; Q9967

== ENCOUNTER 2018-03-31 06:46 | Inpatient (IN) | payer MEDICAID, SELFPAY ==
[2018-03-31 06:47] VITALS: BMI 29.4
[2018-03-31] MEDS ORDERED: Sodium Chloride 0.9% 1,000 ML IV ONE (07:09)
[2018-03-31 07:32] LABS: VENOUS BLOOD GAS BASE EXCESS 2.6 mmol/L (0.0-2.0); VENOUS BLOOD GAS PCO2 41 mmHg (40-60); VENOUS BLOOD GAS PO2 37 mm/Hg (30-55); VENOUS BLOOD PH 7.43 (7.32-7.43)
--- NOTE | 2018-03-31 07:40 | C.PDOC ---
History Of Present Illness 47 years old male presents to ED for complaints of multiple diarrhea (yellow and watery) episodes daily that began 12 days ago. Patient reports symptoms began after his sister brought him cooked beans from [place]. He saw his PMD last week and was told to change his diet. Patient reports he changed his diet and diarrhea episodes decreased; however, two days ago he reports experiencing shaking, chills, and fever. Denies nausea, vomiting, abdominal pain, cough, chest pain, shortness of breath, or rash. Time Seen by Provider: 03/31/18 07:05 Chief Complaint (Nursing): Fever History Per: Patient History/Exam Limitations: no limitations Onset/Duration Of Symptoms: Days Current Symptoms Are (Timing): Still Present Location Of Pain: None Sick Contacts (Context): None Associated Symptoms: Fever, Chills, Diarrhea. denies: Cough, Nausea, Vomiting Ear Symptoms: Bilateral: None Recent travel outside of the [place]: No Past Medical History Reviewed: Historical Data, Nursing Documentation, Vital Signs Vital Signs: Last Vital Signs Temp 101.8 F H 03/31/18 07:27 Pulse 140 H 03/31/18 06:52 Resp 18 03/31/18 06:52 BP 94/60 L 03/31/18 06:52 Pulse Ox 98 03/31/18 06:52 - Medical History PMH: Arthritis, Benign Prostatic Hyperplasia, Pneumonia Comment Only: HTN (PT DENIES) Surgical History: No Surg Hx Family History: States: Unknown Family Hx - Social History Hx Tobacco Use: No Hx Alcohol Use: Yes Hx Substance Use: No - Immunization History Hx Tetanus Toxoid Vaccination: No Hx Influenza Vaccination: Yes Hx Pneumococcal Vaccination: No Review Of Systems Constitutional: Positive for: Fever, Chills Cardiovascular: Negative for: Chest Pain Respiratory: Negative for: Shortness of Breath Gastrointestinal: Positive for: Diarrhea. Negative for: Nausea, Vomiting, Abdominal Pain Skin: Negative for: Rash Neurological: Negative for: Weakness, Numbness Physical Exam - Physical Exam Appears: Non-toxic, No Acute Distress Skin: Normal Color, Warm, Dry, No Rash Head: Atraumatic, Normacephalic Eye(s): bilateral: Normal Inspection, PERRL, EOMI Oral Mucosa: Dry Neck: Normal ROM, Supple Chest: Symmetrical, No Tenderness Cardiovascular: Rhythm Regular (Tachycardic ), No Murmur Respiratory: Normal Breath Sounds, No Rales, No Rhonchi, No Wheezing Gastrointestinal/Abdominal: Bowel Sounds (Active ), Soft, No Tenderness, No Distention, No Guarding, No Rebound Extremity: Normal ROM, No Pedal Edema Extremity: Bilateral: Atraumatic, Normal Color And Temperature, Normal ROM Pulses: Left Radial: Normal, Right Radial: Normal Neurological/Psych: Oriented x3, Normal Speech Gait: Steady ED Course And Treatment - Laboratory Results Result Diagrams: 03/31/18 07:42 03/31/18 07:42 Lab Results: pO2 37 mm/Hg (30-55) 03/31/18 07:25 VBG pH 7.43 (7.32-7.43) 03/31/18 07:25 VBG pCO2 41 mmHg (40-60) 03/31/18 07:25 VBG HCO3 26.3 mmol/L 03/31/18 07:25 VBG Total CO2 28.5 mmol/L (22-28) H 03/31/18 07:25 VBG O2 Sat (Calc) 76.1 % (40-65) H 03/31/18 07:25 VBG Base Excess 2.6 mmol/L (0.0-2.0) H 03/31/18 07:25 VBG Potassium 3.5 mmol/L (3.6-5.2) L 03/31/18 07:25 Sodium 140.0 mmol/l (132-148) 03/31/18 07:25 Chloride 104.0 mmol/L (98-107) 03/31/18 07:25 Glucose 151 mg/dl (75-110) H 03/31/18 07:25 Lactate 2.1 mmol/L (0.7-2.1) 03/31/18 07:25 O2 Sat by Pulse Oximetry: 98 (RA) Pulse Ox Interpretation: Normal Medical Decision Making Medical Decision Making: Plan: * IV Fluids * Motrin * Blood Gas * EKG * Blood work * Blood Culture * Stool Culture * Urine Culture * Urinalysis * Occult Blood * Fecal Leukocytes * C Diff Toxin AB Progress: 07:48: Sepsis Code called in ER 11:30: Patient seen by ICU and declined. Will admit to floor. 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 - Scribe Statement The provider has reviewed the documentation as recorded by the Scribclau Carmen All medical record entries made by the Chelseaibclau were at my direction and personally dictated by me. I have reviewed the chart and agree that the record accurately reflects my personal performance of the history, physical exam, medical decision making, and the department course for this patient. I have also personally directed, reviewed, and agree with the discharge instructions and d isposition.
[2018-03-31] MEDS ORDERED: Sodium Chloride 0.9% 1,000 ML ONE (07:43)
[2018-03-31] MEDS ORDERED: Lactated Ringer's 1,000 ML ONE (07:43)
[2018-03-31] MEDS ORDERED: Sodium Chloride 0.9% 500 ML IV ONE ×2 (07:46→08:05)
[2018-03-31 07:48] LABS: BASO # 0.2 K/uL (0.0-0.2); BASO % 0.7 % (0.0-2.0); EOS # 0.1 K/uL (0.0-0.7); EOS % 0.4 % (0.0-4.0); HEMOGLOBIN 14.5 g/dL (12.0-18.0); LYMPH # 1.1 K/uL (1.0-4.3); LYMPH % 4.6 % (20.0-40.0); MEAN CELL VOLUME 84.6 fL (80.0-94.0); MEAN CORPUSCULAR HGB CONC 33.1 g/dL (33.0-37.0); MEAN PLATELET VOLUME 8.1 fL (7.2-11.7); MONO # 0.8 K/uL (0.0-0.8); MONO % 3.4 % (0.0-10.0); NEUT # 21.3 K/uL (1.8-7.0); NEUT % 90.9 % (50.0-75.0); PLATELET COUNT 257 K/uL (130-400); RBC 5.17 Mil/uL (4.40-5.90)
[2018-03-31 07:49] LABS: WHITE BLOOD COUNT 23.4 K/uL (4.8-10.8)
[2018-03-31] MEDS ORDERED: Piperacill/Tazo 3.375gm in Dex 3.375 GM/50 ML BAG IVPB STA (07:51)
[2018-03-31] MEDS ORDERED: Vancomycin 1 gm/NS 200 ml 1 GM/200 ML BAG IVPB STA (07:51)
[2018-03-31] MEDS ORDERED: Lactated Ringer's 1,000 ML IV ONE (07:54)
[2018-03-31] MEDS ORDERED: Vancomycin 1 GM 1 GM/250 ML BAG IVPB ONE ×2 (08:05→08:38)
[2018-03-31] MEDS ORDERED: Piperacillin/Tazobact 3.375 gm 100 ML IVPB ONE (08:05)
--- NOTE | 2018-03-31 08:15 | RAD ---
Chest x-ray single frontal view HISTORY: Sepsis. COMPARISON: 03/08/2018 Findings mild venous congestion. Mild cardiomegaly. Impression: Findings mild venous congestion. Mild cardiomegaly.
[2018-03-31 08:17] LABS: ALB/GLOB RATIO 1.3 (1.0-2.1); ALT/SGPT 142 U/L (21-72); AMYLASE 91 U/L (30-110); AST/SGOT 127 U/L (17-59); BLOOD UREA NITROGEN 18 mg/dL (9-20); CALCIUM 8.3 mg/dl (8.6-10.4); GFR NON-AFRICAN AMERICAN > 60; LIPASE 102 U/L (23-300)
[2018-03-31 08:29] LABS: SQUAMOUS EPITHIAL < 1 /hpf (0-5); URINE BILIRUBIN 1+ (NEGATIVE); URINE BLOOD 2+ (NEGATIVE); URINE CLARITY Hazy (Clear); URINE COLOR Amber (YELLOW); URINE GLUCOSE (UA) NORMAL (Normal); URINE HYALINE CAST 0-2 /lpf (0-2); URINE LEUKOCYTE ESTERASE NEG Leu/uL (Negative); URINE PROTEIN 2+ mg/dL (NEGATIVE)
[2018-03-31] MEDS: Sodium Chloride 0.9% 1,000 ML IV SCH ×3 (09:15→22:06)
[2018-03-31 09:17] LABS: BANDS 17 % (0-2); LYMPHOCYTE 7 % (20-40); MONOCYTE 3 % (0-10); NEUTROPHIL 73 % (50-75); TOTAL CELLS COUNTED 100
[2018-03-31 09:18] LABS: VENOUS BLOOD GAS BASE EXCESS 0.8 mmol/L (0.0-2.0); VENOUS BLOOD GAS PCO2 43 mmHg (40-60); VENOUS BLOOD GAS PO2 25 mm/Hg (30-55); VENOUS BLOOD PH 7.39 (7.32-7.43)
[2018-03-31 09:18] LABS: ANISOCYTOSIS SLIGHT; LARGE PLATELETS PRESENT; PLATELET ESTIMATE SLIGHTLY DECREASED (NORMAL); TOXIC GRANULATION PRESENT
[2018-03-31 10:01] LABS: HEPATITIS B SURFACE AG Negative (NEGATIVE)
[2018-03-31 10:06] LABS: HEPATITIS B CORE AB NEGATIVE (NEGATIVE)
[2018-03-31 10:19] LABS: HEPATITIS C ANTIBODY NEGATIVE (NEGATIVE)
[2018-03-31 11:18] LABS: HEPATITIS A IGM NEGATIVE (NEGATIVE)
--- NOTE | 2018-03-31 12:14 | US ---
Right upper quadrant abdominal ultrasound HISTORY: Right upper quadrant abdominal pain. COMPARISON: None available. TECHNIQUE: Real-time sonography was performed through the right upper quadrant of the abdomen. Real-time sonography was performed through the right upper quadrant of the abdomen. Findings: Limited study secondary to patient body habitus. Liver: 17.6 centimeters in length. Prominent. Increased echogenicity of the hepatic parenchymal cortex suggestive for fatty infiltration versus hepatic parenchymal disease. Monophasic flow noted within the portal vein. Please note monophasic flow was documented in the hepatic vein. This is of uncertain clinical etiology. Underlying thrombus in the hepatic vein cannot be excluded. Clinical correlation. Gallbladder: Cholelithiasis. Normal gallbladder wall thickness of 2.4 millimeters. No gross wall edema. Negative sonographic Yi's sign. Common bile duct measures 3.8 millimeters, within normal limits. Pancreas not well visualized. Visualized aorta and IVC are preserved. Right kidney: 11.8 x 6.1 x 6.2 centimeters. No calculi or hydronephrosis. Impression: Limited study secondary to patient body habitus. 1. Prominent liver. Increased echogenicity of the hepatic parenchymal cortex suggestive for fatty infiltration versus hepatic parenchymal disease. Clinical correlation. 2. Please note monophasic flow was documented in the hepatic vein. This is of uncertain clinical etiology. Underlying thrombus in the hepatic vein cannot be excluded. Clinical correlation. 3. Cholelithiasis. Normal gallbladder wall thickness of 2.4 millimeters. No gross wall edema. Negative sonographic Yi's sign. 4. Pancreas not well visualized.
[2018-03-31] MEDS ORDERED: Ciprofloxacin 400mg/200ml D5W 400 MG/200 ML BAG IVPB SCH (12:30)
[2018-03-31] MEDS ORDERED: Pantoprazole 40 mg EC Tab PO SCH (12:45)
[2018-03-31] MEDS ORDERED: Ciprofloxacin 400mg/200ml D5W 400 MG/200 ML BAG IVPB ONE (13:29)
[2018-03-31] MEDS ORDERED: Pantoprazole 40 mg EC Tab PO ONE (13:30)
[2018-03-31 13:48] LABS: C DIFF TOXIN A B NEGATIVE (NEGATIVE)
[2018-03-31 14:49] LABS: FECAL LEUKOCYTES NEGATIVE (NEGATIVE)
--- NOTE | 2018-03-31 15:47 | CT ---
Date of service: 03/31/2018 PROCEDURE: CT Abdomen and Pelvis with and without intravenous contrast HISTORY: r/o hepatic thrombus COMPARISON: Comparison is made with the previous ultrasound examination of the liver dated 03/31/2018 TECHNIQUE: Axial images of the abdomen were obtained in the pre contrast, portal venous and delayed phases of enhancement. Coronal and sagittal reformats were generated. Arterial and portal phase images of the liver were obtained. Contrast dose: 100 mL of Visipaque 320 intravenously. Radiation dose: Total exam DLP = 1726.84 mGy-cm. This CT exam was performed using one or more of the following dose reduction techniques: Automated exposure control, adjustment of the mA and/or kV according to patient size, and/or use of iterative reconstruction technique. FINDINGS: LOWER THORAX: No evidence of acute pathology at the lung bases. Mild atelectasis noted. LIVER: No evidence of portal or hepatic vein thrombosis in this study. The hepatic artery is patent. There are small foci of low attenuation noted adjacent to the gallbladder fossa of uncertain etiology. The possibility of small abscess or other etiology is not totally excluded. GALLBLADDER AND BILE DUCTS: The gallbladder is partially distended demonstrate diffuse wall thickening and surrounding with inflammatory changes and pericholecystic fluid. PANCREAS: Unremarkable. No gross lesion or ductal dilatation. SPLEEN: Unremarkable. ADRENALS: Unremarkable. No mass. KIDNEYS AND URETERS: Unremarkable. No hydronephrosis. No solid mass. VASCULATURE: Unremarkable. No aortic aneurysm. No aortic atherosclerotic calcification or mural plaque present. Small atherosclerotic calcification noted at the common iliac arteries. BOWEL: Slightly dilated small bowel loops demonstrate mild wall thickening suspicious for possible mild enteritis. There is no evidence of high-grade bowel obstruction. APPENDIX: Normal appendix. PERITONEUM: Unremarkable. No free fluid. No free air. LYMPH NODES: Unremarkable. No enlarged lymph nodes. BLADDER: Unremarkable. REPRODUCTIVE: Unremarkable. BONES: No acute fracture. OTHER FINDINGS: None. IMPRESSION: No CTA evidence of portal or hepatic vein thrombosis. Foci of low attenuation in the right liver lobe adjacent to the gallbladder may represent benign renal cyst versus small abscesses secondary to cholecystitis. Clinical correlation is suggested. Diffuse gallbladder wall thickening surrounding with mild fat stranding and trace fluid. Correlate clinically for cholecystitis.
[2018-03-31] MEDS: metroNIDAZOLE IV 500 mg/100 ml 500 MG/100 ML BAG IVPB SCH ×2 (15:59→22:05)
--- NOTE | 2018-03-31 16:04 | CP.PCM.HP ---
<Cassandra Johnson - Last Filed: 03/31/18 20:13> History of Present Illness - History of Present Illness History of Present Illness: PGY-1 Cassandra Johsnon D.O. H&P for Dr. Keegan Chan's service: Patient is a 47 yo male with history of recurrent UTIs and back pain/spasms who presents with fever and chills x2 days. Tylenol stops the fever and shaking for about 4 hours, but then both symptoms return. He has also been experiencing 12 days of diarrhea starting when he ate rice and chicken from [place]. His girlfriend also ate the rice and chicken, but she did not experience any symptoms. The diarrhea is watery and nonbloody. At first, the diarrhea was "all the time, any time I would eat," but it has now decreased to 2-3x/day. Denies recent travel or sick contacts. Denies abdominal pain, nausea, and vomiting. 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 The back spasm started in August 2017 after picking up an air conditioner. The pain is episodic, with a total 5 five episodes since August 2017, each lasting about 8 hours each. Pain severity is 8/10 at worst, 0/10 currently - it is worse with lifting and better with Motrin and cyclobenzaprine. Pain is a pulsating type and starts in mid-right back and radiates to stomach and chest. The episodes and pain always only happen in the morning. 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 absent: Sore Throat - Cardiovascular Cardiovascular: absent: Chest Pain, Edema - Respiratory Respiratory: absent: Cough, Dyspnea, Hemoptysis - Gastrointestinal Gastrointestinal: As Per HPI, Bloating, Diarrhea. absent: Nausea, Vomiting - Genitourinary Genitourinary: absent: Dysuria, Hematuria - Musculoskeletal Musculoskeletal: Back Pain - Integumentary Integumentary: absent: Lesions - Neurological Neurological: absent: Dizziness, Numbness, Focal Weakness, Sensory Deficit, Syncope, Tingling, Tremor - Psychiatric Psychiatric: absent: Anxiety, Depression - Endocrine Endocrine: absent: Fatigue, Palpitations - Hematologic/Lymphatic Hematologic: absent: Easy Bleeding, Easy Bruising, Lymphadenopathy Past Patient History - Infectious Disease Hx of Infectious Diseases: None - Tetanus Immunizations Tetanus Immunization: Unknown - Past Medical History & Family History Pertinent Family History: mother ( 60)- valvular HD father ( 65)- colon CA - Past Social History Smoking Status: Never Smoked Chewing Tobacco Use: No Cigar Use: No Alcohol: Social Drugs: Denies Home Situation {Lives}: Alone - CARDIAC Hx Hypertension: (PT DENIES) - PULMONARY Hx Pneumonia: Yes - NEUROLOGICAL Hx Dizziness: Yes Hx Vertigo: Yes - MUSCULOSKELETAL/RHEUMATOLOGICAL Hx Arthritis: Yes - PSYCHIATRIC Hx Substance Use: No - SURGICAL HISTORY Hx Surgeries: No - ANESTHESIA Hx Anesthesia: No Hx Anesthesia Reactions: No Meds Allergies/Adverse Reactions: Allergies Allergy/AdvReac Type Severity Reaction Status Date / Time aspirin Allergy Mild RASH Verified 03/31/18 07:05 Physical Exam - Constitutional Appears: Non-toxic, No Acute Distress - Head Exam Head Exam: ATRAUMATIC, NORMAL INSPECTION - Eye Exam Eye Exam: EOMI, Normal appearance, PERRL - ENT Exam ENT Exam: Mucous Membranes Moist - Neck Exam Neck exam: Positive for: Normal Inspection - Respiratory Exam Respiratory Exam: Clear to Auscultation Bilateral, NORMAL BREATHING PATTERN Additional comments: mild tachypnea - Cardiovascular Exam Cardiovascular Exam: Tachycardia, REGULAR RHYTHM, +S1, +S2 - GI/Abdominal Exam GI & Abdominal Exam: Soft. absent: Distended, Tenderness - Extremities Exam Extremities exam: Positive for: normal inspection - Back Exam Back exam: NORMAL INSPECTION - Neurological Exam Neurological exam: Alert, CN II-XII Intact, Oriented x3 - Psychiatric Exam Psychiatric exam: Normal Affect, Normal Mood - Skin Skin Exam: Dry, Intact, Normal Color, Warm Results - Vital Signs Recent Vital Signs: Last Vital Signs Temp 97.6 F 03/31/18 14:10 Pulse 100 H 03/31/18 14:10 Resp 20 03/31/18 14:10 BP 104/69 03/31/18 14:10 Pulse Ox 98 03/31/18 15:48 - Labs Result Diagrams: 03/31/18 07:42 03/31/18 07:42 Labs: Laboratory Results - last 24 hr 03/31/18 03/31/18 03/31/18 07:25 07:42 07:42 WBC 23.4 H D RBC 5.17 Hgb 14.5 Hct 43.7 MCV 84.6 MCH 28.0 MCHC 33.1 RDW 14.0 Plt Count 257 MPV 8.1 Neut % (Auto) 90.9 H Lymph % (Auto) 4.6 L [place] % (Auto) 3.4 Eos % (Auto) 0.4 Baso % (Auto) 0.7 Neut # (Auto) 21.3 H Lymph # (Auto) 1.1 [place] # (Auto) 0.8 Eos # (Auto) 0.1 Baso # (Auto) 0.2 Neutrophils % (Manual) 73 Band Neutrophils % 17 H* Lymphocytes % (Manual) 7 L Monocytes % (Manual) 3 Toxic Granulation Present Platelet Estimate Slightly decreased L Large Platelets Present Anisocytosis (manual) Slight pO2 37 VBG pH 7.43 VBG pCO2 41 VBG HCO3 26.3 VBG Total CO2 28.5 H VBG O2 Sat (Calc) 76.1 H VBG Base Excess 2.6 H VBG Potassium 3.5 L Sodium 140.0 136 Chloride 104.0 102 Glucose 151 H Lactate 2.1 Potassium 3.5 L Carbon Dioxide 25 Anion Gap 13 BUN 18 Creatinine 1.1 Est GFR ( Amer) > 60 Est GFR (Non-Af Amer) > 60 Random Glucose 144 H Calcium 8.3 L Phosphorus 1.8 L Magnesium 1.6 Total Bilirubin 2.5 H AST 127 H D ALT 142 H D Alkaline Phosphatase 314 H D Total Protein 7.2 Albumin 4.0 Globulin 3.2 Albumin/Globulin Ratio 1.3 Amylase 91 Lipase 102 Free T4 TSH 3rd Generation Venous Blood Potassium 3.5 L Urine Color Urine Clarity Urine pH Ur Specific [place] Urine Protein Urine Glucose (UA) Urine Ketones Urine Blood Urine Nitrate Urine Bilirubin Urine Urobilinogen Ur Leukocyte Esterase Urine WBC (Auto) Urine RBC (Auto) Ur Squamous Epith Cells Hyaline Casts Stool Occult Blood Stool Leukocytes, Qual C. difficile Ag & Toxin Hepatitis A IgM Ab Hep Bs Antigen Hep B Core IgM Ab Hepatitis C Antibody HIV 1&2 Antibody Screen Influenza Typ A,B (EIA) 03/31/18 03/31/18 03/31/18 07:42 07:57 09:13 WBC RBC Hgb Hct MCV MCH MCHC RDW Plt Count MPV Neut % (Auto) Lymph % (Auto) [place] % (Auto) Eos % (Auto) Baso % (Auto) Neut # (Auto) Lymph # (Auto) [place] # (Auto) Eos # (Auto) Baso # (Auto) Neutrophils % (Manual) Band Neutrophils % Lymphocytes % (Manual) Monocytes % (Manual) Toxic Granulation Platelet Estimate Large Platelets Anisocytosis (manual) pO2 25 L VBG pH 7.39 VBG pCO2 43 VBG HCO3 24.1 VBG Total CO2 27.3 VBG O2 Sat (Calc) 51.8 VBG Base Excess 0.8 VBG Potassium 3.5 L Sodium 140.0 Chloride 110.0 H Glucose 127 H Lactate 1.5 Potassium Carbon Dioxide Anion Gap BUN Creatinine Est GFR ( Amer) Est GFR (Non-Af Amer) Random Glucose Calcium Phosphorus Magnesium Total Bilirubin AST ALT Alkaline Phosphatase Total Protein Albumin Globulin Albumin/Globulin Ratio Amylase Lipase Free T4 TSH 3rd Generation Venous Blood Potassium 3.5 L Urine Color [place] Urine Clarity Hazy Urine pH 5.0 Ur Specific [place] 1.034 H Urine Protein 2+ H Urine Glucose (UA) Normal Urine Ketones Negative Urine Blood 2+ H Urine Nitrate Negative Urine Bilirubin 1+ H Urine Urobilinogen 4.0 Ur Leukocyte Esterase Neg Urine WBC (Auto) 11 H Urine RBC (Auto) 17 H Ur Squamous Epith Cells < 1 Hyaline Casts 0-2 Stool Occult Blood Negative Stool Leukocytes, Qual C. difficile Ag & Toxin Hepatitis A IgM Ab Hep Bs Antigen Hep B Core IgM Ab Hepatitis C Antibody HIV 1&2 Antibody Screen Influenza Typ A,B (EIA) 03/31/18 03/31/18 03/31/18 09:13 09:13 09:13 WBC RBC Hgb Hct MCV MCH MCHC RDW Plt Count MPV Neut % (Auto) Lymph % (Auto) [place] % (Auto) Eos % (Auto) Baso % (Auto) Neut # (Auto) Lymph # (Auto) [place] # (Auto) Eos # (Auto) Baso # (Auto) Neutrophils % (Manual) Band Neutrophils % Lymphocytes % (Manual) Monocytes % (Manual) Toxic Granulation Platelet Estimate Large Platelets Anisocytosis (manual) pO2 VBG pH VBG pCO2 VBG HCO3 VBG Total CO2 VBG O2 Sat (Calc) VBG Base Excess VBG Potassium Sodium Chloride Glucose Lactate Potassium Carbon Dioxide Anion Gap BUN Creatinine Est GFR ( Amer) Est GFR (Non-Af Amer) Random Glucose Calcium Phosphorus Magnesium Total Bilirubin AST ALT Alkaline Phosphatase Total Protein Albumin Globulin Albumin/Globulin Ratio Amylase Lipase Free T4 TSH 3rd Generation Venous Blood Potassium Urine Color Urine Clarity Urine pH Ur Specific [place] Urine Protein Urine Glucose (UA) Urine Ketones Urine Blood Urine Nitrate Urine Bilirubin Urine Urobilinogen Ur Leukocyte Esterase Urine WBC (Auto) Urine RBC (Auto) Ur Squamous Epith Cells Hyaline Casts Stool Occult Blood Stool Leukocytes, Qual C. difficile Ag & Toxin Hepatitis A IgM Ab Negative Hep Bs Antigen Negative Hep B Core IgM Ab Negative Hepatitis C Antibody Negative HIV 1&2 Antibody Screen Negative Influenza Typ A,B (EIA) Negative for flu a/b 03/31/18 03/31/18 03/31/18 12:56 13:37 13:37 WBC RBC Hgb Hct MCV MCH MCHC RDW Plt Count MPV Neut % (Auto) Lymph % (Auto) [place] % (Auto) Eos % (Auto) Baso % (Auto) Neut # (Auto) Lymph # (Auto) [place] # (Auto) Eos # (Auto) Baso # (Auto) Neutrophils % (Manual) Band Neutrophils % Lymphocytes % (Manual) Monocytes % (Manual) Toxic Granulation Platelet Estimate Large Platelets Anisocytosis (manual) pO2 VBG pH VBG pCO2 VBG HCO3 VBG Total CO2 VBG O2 Sat (Calc) VBG Base Excess VBG Potassium Sodium Chloride Glucose Lactate Potassium Carbon Dioxide Anion Gap BUN Creatinine Est GFR ( Amer) Est GFR (Non-Af Amer) Random Glucose Calcium Phosphorus Magnesium Total Bilirubin AST ALT Alkaline Phosphatase Total Protein Albumin Globulin Albumin/Globulin Ratio Amylase Lipase Free T4 1.91 TSH 3rd Generation 0.88 Venous Blood Potassium Urine Color Urine Clarity Urine pH Ur Specific [place] Urine Protein Urine Glucose (UA) Urine Ketones Urine Blood Urine Nitrate Urine Bilirubin Urine Urobilinogen Ur Leukocyte Esterase Urine WBC (Auto) Urine RBC (Auto) Ur Squamous Epith Cells Hyaline Casts Stool Occult Blood Stool Leukocytes, Qual Negative C. difficile Ag & Toxin Negative Hepatitis A IgM Ab Hep Bs Antigen Hep B Core IgM Ab Hepatitis C Antibody HIV 1&2 Antibody Screen Influenza Typ A,B (EIA) Assessment & Plan - Assessment and Plan (Free Text) Assessment: Patient is a 47 yo male with history of recurrent UTIs and back pain/spasms who presented with fevers/chills and diarrhea. Found to be septic and have GNR bacteremia. Plan: Sepsis- Gram negative chirag bacteremia - Tmax 101.8 - Tachycardic, hypotensive on admission - WBC 23.4- 17 bands - LA 2.1-->1.5 - Procal 3.95 - Flu negative - Blood Cx: GNR - f/u final Cx and sensitivity - NS @ 200 mL/hr - Motrin 400 mg PO Q6H - Cipro 400 mg IV Q12H- started 03/31 - Flagyl 500 mg IV Q8H- started 03/31 Diarrhea, improving- suspect gastroenteritis - C. diff negative - FOBT negative - Stool leukocytes negative - f/u UDS - NS @ 200 mL/hr - Replete electrolytes PRN Transaminitis - Abd US: Prominent liver. Increased echogenicity of the hepatic parenchymal cortex suggestive for fatty infiltration versus hepatic parenchymal disease. Monophasic flow was documented in the hepatic vein. This is of uncertain clinical etiology. Underlying thrombus in the hepatic vein cannot be excluded. Cholelithiasis. Normal gallbladder wall thickness of 2.4 millimeters. No gross wall edema. Negative sonographic Yi's sign. Pancreas not well visualized. - CTA A/P: No CTA evidence of portal or hepatic vein thrombosis. Foci of low attenuation in the right liver lobe adjacent to the gallbladder may represent benign renal cyst versus small abscesses secondary to cholecystitis. Clinical correlation is suggested. Diffuse gallbladder wall thickening surrounding with mild fat stranding and trace fluid. Correlate clinically for cholecystitis. - Hepatitis panel negative - HIV negative Muscle spasms (back), chronic - Motrin 400 mg PO Q6H Ppx: VTE: SCDs GI: PTX 40 mg PO daily Code status: full code Case discussed with attending, Dr. Keegan Chan. <Keegan Chan - Last Filed: 04/03/18 15:15> Results - Vital Signs Recent Vital Signs: Last Vital Signs Temp 99.3 F 04/03/18 08:00 Pulse 96 H 04/03/18 08:00 Resp 18 04/03/18 08:00 BP 103/67 04/03/18 08:00 Pulse Ox 98 04/03/18 08:00 - Labs Result Diagrams: 04/03/18 06:50 04/03/18 06:50 Labs: Laboratory Results - last 24 hr 03/31/18 04/02/18 04/03/18 12:56 19:36 06:50 WBC 8.3 RBC 4.44 Hgb 12.5 Hct 36.9 MCV 83.0 MCH 28.0 MCHC 33.8 RDW 14.5 Plt Count 152 MPV 7.9 Neut % (Auto) 73.9 Lymph % (Auto) 11.9 L [place] % (Auto) 12.8 H Eos % (Auto) 1.1 Baso % (Auto) 0.3 Neut # (Auto) 6.1 Lymph # (Auto) 1.0 [place] # (Auto) 1.1 H Eos # (Auto) 0.1 Baso # (Auto) 0.0 PT INR APTT Sodium Potassium Chloride Carbon Dioxide Anion Gap BUN Creatinine Est GFR ( Amer) Est GFR (Non-Af Amer) Random Glucose Calcium Phosphorus Magnesium Total Bilirubin AST ALT Alkaline Phosphatase Total Protein Albumin Globulin Albumin/Globulin Ratio Giardia Antigen Not detected Blood Type O POSITIVE Antibody Screen Negative 04/03/18 04/03/18 06:50 11:34 WBC RBC Hgb Hct MCV MCH MCHC RDW Plt Count MPV Neut % (Auto) Lymph % (Auto) [place] % (Auto) Eos % (Auto) Baso % (Auto) Neut # (Auto) Lymph # (Auto) [place] # (Auto) Eos # (Auto) Baso # (Auto) PT 14.6 H INR 1.3 APTT 40 H Sodium 134 Potassium 3.6 Chloride 102 Carbon Dioxide 25 Anion Gap 11 BUN 6 L Creatinine 0.5 L Est GFR ( Amer) > 60 Est GFR (Non-Af Amer) > 60 Random Glucose 125 H Calcium 8.0 L Phosphorus 2.8 Magnesium 1.7 Total Bilirubin 0.8 AST 28 ALT 50 Alkaline Phosphatase 236 H Total Protein 6.1 L Albumin 3.2 L Globulin 3.0 Albumin/Globulin Ratio 1.1 Giardia Antigen Blood Type Antibody Screen Attending/Attestation - Attestation I have personally seen and examined this patient.: Yes I have fully participated in the care of the patient.: Yes I have reviewed all pertinent clinical information: Yes Notes (Text): 04/03/18 15:14 This is a late entry. History and Physical, Assessment and Plan and all orders were gone over with Dr. Black. Keegan Chan D.O.
--- NOTE | 2018-03-31 21:39 | CP.PCM.PCO ---
Physician Communication Note - Physician Communication Note Physician Communication Note: D/c protonix given higher associated with C. Dif occurrence
[2018-03-31 22:58] LABS: BARBITURATES, UR NEGATIVE (NEGATIVE); BENZODIAZEPINES, UR NEGATIVE (NEGATIVE); OPIATES, UR NEGATIVE (NEGATIVE); PHENCYCLIDINE, UR NEGATIVE (NEGATIVE)
[2018-03-31] MEDS: Meropenem 1 GM in Sodium Chloride 0.9% 100 ML IVPB SCH (23:46)
[2018-04-01] MEDS: Sodium Chloride 0.9% 1,000 ML IV SCH ×3 (00:15→19:18)
[2018-04-01] MEDS: metroNIDAZOLE IV 500 mg/100 ml 500 MG/100 ML BAG IVPB SCH ×3 (05:00→21:08)
[2018-04-01] MEDS: Meropenem 1 GM in Sodium Chloride 0.9% 100 ML IVPB SCH ×3 (06:18→22:13)
[2018-04-01 07:46] LABS: BASO % 0.2 % (0.0-2.0); EOS # 0.1 K/uL (0.0-0.7); EOS % 0.7 % (0.0-4.0); LYMPH # 0.7 K/uL (1.0-4.3); LYMPH % 4.9 % (20.0-40.0); MEAN CELL VOLUME 84.1 fL (80.0-94.0); MEAN CORPUSCULAR HEMOGLOBIN 27.9 pg (27.0-31.0); MEAN CORPUSCULAR HGB CONC 33.2 g/dL (33.0-37.0); MEAN PLATELET VOLUME 8.3 fL (7.2-11.7); MONO # 0.6 K/uL (0.0-0.8); MONO % 4.2 % (0.0-10.0); NEUT # 13.7 K/uL (1.8-7.0); NRBC % 0.1 % (0.0-2.0); RED CELL DISTRIBUTION WIDTH 14.4 % (11.5-14.5); WHITE BLOOD COUNT 15.2 K/uL (4.8-10.8)
[2018-04-01 07:48] LABS: PLATELET COUNT 164 K/uL (130-400)
[2018-04-01 07:49] LABS: HEMOGLOBIN 12.3 g/dL (12.0-18.0)
[2018-04-01 08:04] LABS: ALB/GLOB RATIO 1.1 (1.0-2.1); ALT/SGPT 80 U/L (21-72); AST/SGOT 50 U/L (17-59); BLOOD UREA NITROGEN 9 mg/dL (9-20); CALCIUM 8.1 mg/dl (8.6-10.4); GFR NON-AFRICAN AMERICAN > 60
--- NOTE | 2018-04-01 08:36 | CP.PCM.PN ---
<Cassandra Johnson - Last Filed: 04/01/18 18:59> Subjective - Date & Time of Evaluation Date of Evaluation: 04/01/18 Time of Evaluation: 08:35 - Subjective Subjective: PGY-1 Cassandra Johnson D.O. Medicine progress note for Dr. Simpson's service: Patient was seen and examined this morning. He says he is feeling better. His stool is more formed. Denies blood in stool. He continues to get intermittent episodes of chills. Denies chest pain, SOB, abdominal pain, nausea and vomiting. Objective - Vital Signs/Intake and Output Vital Signs (last 24 hours): Temp Pulse Resp BP Pulse Ox 99.0 F 101 H 18 109/68 96 04/01/18 07:00 04/01/18 07:00 04/01/18 07:00 04/01/18 07:00 04/01/18 07:00 - Medications Medications: Current Medications Famotidine (Pepcid) 20 mg IVP DAILY [facility] Sodium Chloride (Sodium Chloride 0.9%) 1,000 mls @ 200 mls/hr IV .Q5H [facility] Last Admin: 04/01/18 06:21 Dose: 200 mls/hr Metronidazole (Flagyl) 500 mg in 100 mls @ 100 mls/hr IVPB Q8H [facility]; Protocol Last Admin: 04/01/18 05:00 Dose: 100 mls/hr Meropenem 1 gm/ Sodium (Chloride) 100 mls @ 100 mls/hr IVPB Q8H [facility]; Protocol Last Admin: 04/01/18 06:18 Dose: 100 mls/hr Ibuprofen (Motrin Tab) 400 mg PO Q6 [facility] Stop: 04/01/18 12:01 Last Admin: 04/01/18 05:57 Dose: 400 mg - Labs Labs: 04/01/18 07:18 04/01/18 07:18 - Constitutional Appears: Non-toxic, No Acute Distress - Head Exam Head Exam: ATRAUMATIC, NORMAL INSPECTION - Eye Exam Eye Exam: EOMI, Normal appearance - ENT Exam ENT Exam: Mucous Membranes Moist - Neck Exam Neck Exam: Normal Inspection - Respiratory Exam Respiratory Exam: Clear to Ausculation Bilateral, NORMAL BREATHING PATTERN. absent: Respiratory Distress - Cardiovascular Exam Cardiovascular Exam: RRR, +S1, +S2 - GI/Abdominal Exam GI & Abdominal Exam: Soft. absent: Distended, Tenderness - Extremities Exam Extremities Exam: Normal Inspection. absent: Pedal Edema - Neurological Exam Neurological Exam: Alert, Awake, CN II-XII Intact, Normal Gait, Oriented x3 - Psychiatric Exam Psychiatric exam: Normal Affect, Normal Mood - Skin Skin Exam: Dry, Normal Color, Warm Assessment and Plan - Assessment and Plan (Free Text) Assessment: Patient is a 47 yo male with history of recurrent UTIs and back pain/spasms who presented with fevers/chills and diarrhea. Found to be septic and have GNR bacteremia. Plan: Sepsis- Gram negative chirag bacteremia - Tmax 101.8, most recent fever 100.5 on 04/01 4PM - Tachycardic, hypotensive on admission- resolved - Leukocytosis improving - LA 2.1-->1.5 - Procal 3.95 - Flu negative - Blood Cx: GNR - f/u final Cx and sensitivity - NS @ 100 mL/hr - f/u Echo - Tylenol 650 mg PO Q6H PRN - Discontinue Cipro 400 mg IV Q12H- started 03/31 - Flagyl 500 mg IV Q8H- started 03/31 - Merrem 1 g IV Q8H- started 04/01 - ID consulted (Magdalene) Diarrhea, improving- suspect gastroenteritis - C. diff, stool leukocytes, O&P negative - FOBT negative - Lactoferrin pending - UDS negative - TSH, free T4 wnl - NS @ 100 mL/hr - Replete electrolytes PRN Transaminitis, improving - Abd US: Prominent liver. Increased echogenicity of the hepatic parenchymal cortex suggestive for fatty infiltration versus hepatic parenchymal disease. Monophasic flow was documented in the hepatic vein. This is of uncertain clinical etiology. Underlying thrombus in the hepatic vein cannot be excluded. Cholelithiasis. Normal gallbladder wall thickness of 2.4 millimeters. No gross wall edema. Negative sonographic Yi's sign. Pancreas not well visualized. - CTA A/P: No CTA evidence of portal or hepatic vein thrombosis. Foci of low attenuation in the right liver lobe adjacent to the gallbladder may represent benign renal cyst versus small abscesses secondary to cholecystitis. Clinical correlation is suggested. Diffuse gallbladder wall thickening surrounding with mild fat stranding and trace fluid. Correlate clinically for cholecystitis. - Hepatitis panel negative - HIV negative Muscle spasms (back), chronic - Tylenol 650 mg PO Q6H Ppx: VTE: SCDs GI: PTX 40 mg PO daily Code status: full code Case discussed with attending, Dr. Simpson. <Nayeli Simpson V - Last Filed: 04/05/18 23:55> Objective - Vital Signs/Intake and Output Vital Signs (last 24 hours): Temp Pulse Resp BP Pulse Ox 98.6 F 100 H 20 112/75 97 04/05/18 21:06 04/05/18 15:00 04/05/18 15:00 04/05/18 15:00 04/05/18 15:00 - Medications Medications: Current Medications Acetaminophen (Tylenol 325mg Tab) 650 mg PO Q6 PRN PRN Reason: Fever >100.4 F Last Admin: 04/02/18 19:41 Dose: 650 mg Benzocaine/Menthol (Cepacol Sore Throat) 1 kevin MT Q6 PRN PRN Reason: Sore Throat Last Admin: 04/05/18 11:02 Dose: 1 kevin Docusate Sodium (Colace) 100 mg PO BID [facility] Last Admin: 04/05/18 17:51 Dose: 100 mg Famotidine (Pepcid) 20 mg PO BID [facility] Last Admin: 04/05/18 17:50 Dose: 20 mg Meropenem 1 gm/ Sodium (Chloride) 100 mls @ 100 mls/hr IVPB Q8H [facility]; Protocol Last Admin: 04/05/18 22:07 Dose: 100 mls/hr Metronidazole (Flagyl) 500 mg in 100 mls @ 100 mls/hr IVPB Q8H [facility]; Protocol Last Admin: 04/05/18 16:35 Dose: 100 mls/hr Lactobacillus Acidophilus (Bacid Acidophilus) 1 cap PO BID [facility] Last Admin: 04/05/18 17:51 Dose: 1 cap Oxycodone/Acetaminophen (Percocet 5/325 Mg Tab) 2 tab PO Q4H PRN PRN Reason: Pain, severe (8-10) Stop: 04/06/18 14:46 Last Admin: 04/05/18 14:42 Dose: 2 tab Oxycodone/Acetaminophen (Percocet 5/325 Mg Tab) 1 tab PO Q4H PRN PRN Reason: Pain, moderate (4-7) Stop: 04/07/18 07:01 Last Admin: 04/04/18 18:04 Dose: 1 tab - Labs Labs: 04/05/18 06:51 04/05/18 06:51 PT 14.6 SECONDS (9.7-12.2) H 04/03/18 11:34 INR 1.3 04/03/18 11:34 APTT 40 SECONDS (21-34) H 04/03/18 11:34 Assessment and Plan (1) Sepsis Status: Acute (2) E coli bacteremia Status: Acute (3) Essential hypertension Status: Acute (4) Cholecystitis Status: Acute (5) Prophylactic measure Status: Acute Attending/Attestation - Attestation I have personally seen and examined this patient.: Yes I have fully participated in the care of the patient.: Yes I have reviewed all pertinent clinical information, including history, physical exam and plan: Yes Notes (Text): This is late computer entry for 04/01/18. Patient seen, examined, and case discussed with day-time resident. patient seen in the afternoon accompanied with infectious disease. infectious change antibiotics to Meropenem and recommended for HIDA. Patient on exam negative Yi's sign. Patient reports loose stool. Will continue to f/u cultures and echocardiogram to rule out vegetations. Assessment/Plan 1. Sepsis secondary to Gram Negative Bacteremia Assessment/Plan * Criteria: Tmax: 101.8F Tachycardic, hypotensive on admission secondary to gram negative bacteremia * Meropenem 1gm IVPB Q8H (active since 03/31/18) * Flagyl 500mg IV Q8H (active since 04/03/18) * Procalcitonin: 3.95 * Infectious Disease (Dr. Del Castillo) contact worker lithography-->help appreciated * Blood culture (03/31/18): pending * Urine Culture (03/31/18): no growth * Stool culture (03/31/18): no salmonella, shigella, no camplobacter * Abd US: Prominent liver. Increased echogenicity of the hepatic parenchymal cortex suggestive for fatty infiltration versus hepatic parenchymal disease. Monophasic flow was documented in the hepatic vein. This is of uncertain clinical etiology. Underlying thrombus in the hepatic vein cannot be excluded. Cholelithiasis. Normal gallbladder wall thickness of 2.4 millimeters. No gross wall edema. Negative sonographic Yi's sign. 2. Diarrhea Assessment/Plan * C. diff, stool leukocytes, stool Cx, O&P, Giardia negative * FOBT negative * Lactoferrin pending 3. Transaminitis Assessment/Plan * Abd US: Prominent liver. Increased echogenicity of the hepatic parenchymal cortex suggestive for fatty infiltration versus hepatic parenchymal disease. Monophasic flow was documented in the hepatic vein. This is of uncertain cl inical etiology. Underlying thrombus in the hepatic vein cannot be excluded. Cholelithiasis. Normal gallbladder wall thickness of 2.4 millimeters. No gross wall edema. Negative sonographic Yi's sign. Pancreas not well visualized. * CTA A/P: No CTA evidence of portal or hepatic vein thrombosis. Foci of low attenuation in the right liver lobe adjacent to the gallbladder may represent benign renal cyst versus small abscesses secondary to cholecystitis. Clinical correlation is suggested. Diffuse gallbladder wall thickening surrounding with mild fat stranding and trace fluid. Correlate clinically for cholecystitis. * Hepatitis panel negative * HIV negative * Tbili wnl 4. Prophylactic measure * Pepcid 20mg IV daily * Ambulatory * NS 200cc/hr * SCDs b/l
[2018-04-01] MEDS ORDERED: Magnesium Sulfate 1 gm in D5W 1 GM/100 ML BAG IVPB ONE (08:39)
[2018-04-01 09:13] LABS: BANDS 1 % (0-2); BASOPHIL 1 % (0-2); LYMPHOCYTE 5 % (20-40); MONOCYTE 2 % (0-10); NEUTROPHIL 91 % (50-75); PLATELET ESTIMATE NORMAL (NORMAL); TOTAL CELLS COUNTED 100
[2018-04-01 09:14] LABS: LARGE PLATELETS PRESENT; POIKILOCYTOSIS SLIGHT
--- NOTE | 2018-04-01 18:39 | CARD ---
APPROVED REPORT Date of service: 04/01/2018 EXAM: Two-dimensional and M-mode echocardiogram with Doppler and color Doppler. Other Information Quality : GoodRhythm : INDICATION Dizziness and Vertigo RISK FACTORS Hypertension 2D DIMENSIONS IVSd0.9 (0.7-1.1cm)LVDd4.8 (3.9-5.9cm) PWd0.9 (0.7-1.1cm)LA Oyucnz78 (18-58mL) LVDs3.0 (2.5-4.0cm)FS (%) 36.7 % LVEF (%)66.4 (>50%)LVEF (Grullon's)63.26 % M-Mode DIMENSIONS Left Atrium (MM)3.77 (2.5-4.0cm)IVSd1.07 (0.7-1.1cm) Aortic Root3.21 (2.2-3.7cm)LVDd4.93 (4.0-5.6cm) Aortic Cusp Exc.2.65 (1.5-2.0cm)PWd0.94 (0.7-1.1cm) FS (%) 38 %LVDs3.07 (2.0-3.8cm) LVEF (%)68 (>50%) Mitral Valve MV E Azmdlwub58.2cm/sMV A Gcbkwsiu895.8cm/sE/A ratio0.7 TDI Lateral E' Peak V10.48cm/sMedial E' Peak V9.19cm/sE/Lateral E'6.9 E/Medial E'7.9 Tricuspid Valve TR Peak Kslvusvu312dc/sTR Peak Gr.04lzTdHQVC20vcNw LEFT VENTRICLE The left ventricle is normal size. There is normal left ventricular wall thickness. The left ventricular function is normal. The left ventricular ejection fraction is within the normal range. There is normal LV segmental wall motion. Transmitral Doppler flow pattern is abnormal. RIGHT VENTRICLE The right ventricle is normal size. ATRIA The left atrium size is normal. The right atrium size is normal. AORTIC VALVE The aortic valve is normal in structure. MITRAL VALVE The mitral valve is normal in structure. TRICUSPID VALVE There is mild tricuspid regurgitation. <Conclusion> Normal LV systolic fucntion. Diastolic dysfunction. Trace to mild TR. Normal chamber size.
--- NOTE | 2018-04-01 22:08 | CP.PCM.CON ---
History of Present Illness - History of Present Illness History of Present Illness: dictated Past Patient History - Infectious Disease Hx of Infectious Diseases: None - Tetanus Immunizations Tetanus Immunization: Unknown - Past Social History Smoking Status: Never Smoked Chewing Tobacco Use: No Cigar Use: No Alcohol: Social Drugs: Denies Home Situation {Lives}: Alone - CARDIAC Hx Hypertension: (PT DENIES) - PULMONARY Hx Pneumonia: Yes - NEUROLOGICAL Hx Dizziness: Yes Hx Vertigo: Yes - MUSCULOSKELETAL/RHEUMATOLOGICAL Hx Arthritis: Yes - PSYCHIATRIC Hx Substance Use: No - SURGICAL HISTORY Hx Surgeries: No - ANESTHESIA Hx Anesthesia: No Hx Anesthesia Reactions: No Meds Allergies/Adverse Reactions: Allergies Allergy/AdvReac Type Severity Reaction Status Date / Time aspirin Allergy Mild RASH Verified 03/31/18 07:05 - Medications Medications: Current Medications Acetaminophen (Tylenol 325mg Tab) 650 mg PO Q6 PRN PRN Reason: Fever >100.4 F Famotidine (Pepcid) 20 mg IVP DAILY [facility] Last Admin: 04/01/18 09:29 Dose: 20 mg Heparin Sodium (Porcine) (Heparin) 5,000 units SC Q12 [facility] Last Admin: 04/01/18 21:08 Dose: 5,000 units Metronidazole (Flagyl) 500 mg in 100 mls @ 100 mls/hr IVPB Q8H [facility]; Protocol Last Admin: 04/01/18 21:08 Dose: 100 mls/hr Meropenem 1 gm/ Sodium (Chloride) 100 mls @ 100 mls/hr IVPB Q8H [facility]; Protocol Last Admin: 04/01/18 15:21 Dose: 100 mls/hr Sodium Chloride (Sodium Chloride 0.9%) 1,000 mls @ 100 mls/hr IV .Q10H [facility] Last Admin: 04/01/18 19:18 Dose: 100 mls/hr Results - Vital Signs Recent Vital Signs: Last Vital Signs Temp 100.5 F H 04/01/18 16:00 Pulse 127 H 04/01/18 16:00 Resp 20 04/01/18 16:00 BP 97/61 L 04/01/18 16:00 Pulse Ox 94 L 04/01/18 16:00 - Labs Result Diagrams: 04/01/18 07:18 04/01/18 07:18 Labs: Laboratory Results - last 24 hr 03/31/18 04/01/18 04/01/18 22:31 07:18 07:18 WBC 15.2 H RBC 4.40 Hgb 12.3 D Hct 37.0 MCV 84.1 MCH 27.9 MCHC 33.2 RDW 14.4 Plt Count 164 MPV 8.3 Neut % (Auto) 90.0 H Lymph % (Auto) 4.9 L [place] % (Auto) 4.2 Eos % (Auto) 0.7 Baso % (Auto) 0.2 Neut # (Auto) 13.7 H Lymph # (Auto) 0.7 L [place] # (Auto) 0.6 Eos # (Auto) 0.1 Baso # (Auto) 0.0 Neutrophils % (Manual) 91 H Band Neutrophils % 1 Lymphocytes % (Manual) 5 L Monocytes % (Manual) 2 Basophils % (Manual) 1 Platelet Estimate Normal Large Platelets Present Poikilocytosis (manual Slight Sodium Potassium Chloride Carbon Dioxide Anion Gap BUN Creatinine Est GFR ( Amer) Est GFR (Non-Af Amer) Random Glucose Calcium Phosphorus Magnesium Total Bilirubin AST ALT Alkaline Phosphatase Total Protein Albumin Globulin Albumin/Globulin Ratio Procalcitonin 2.68 H Urine Opiates Screen Negative Urine Methadone Screen Negative Ur Barbiturates Screen Negative Ur Phencyclidine Scrn Negative Ur Amphetamines Screen Negative U Benzodiazepines Scrn Negative U Oth Cocaine Metabols Negative U Cannabinoids Screen Negative 04/01/18 07:18 WBC RBC Hgb Hct MCV MCH MCHC RDW Plt Count MPV Neut % (Auto) Lymph % (Auto) [place] % (Auto) Eos % (Auto) Baso % (Auto) Neut # (Auto) Lymph # (Auto) [place] # (Auto) Eos # (Auto) Baso # (Auto) Neutrophils % (Manual) Band Neutrophils % Lymphocytes % (Manual) Monocytes % (Manual) Basophils % (Manual) Platelet Estimate Large Platelets Poikilocytosis (manual Sodium 136 Potassium 3.7 Chloride 107 Carbon Dioxide 19 L Anion Gap 14 BUN 9 Creatinine 0.6 L Est GFR ( Amer) > 60 Est GFR (Non-Af Amer) > 60 Random Glucose 74 L D Calcium 8.1 L Phosphorus 2.0 L Magnesium 1.6 Total Bilirubin 1.4 H AST 50 ALT 80 H D Alkaline Phosphatase 223 H D Total Protein 5.8 L Albumin 3.0 L D Globulin 2.8 Albumin/Globulin Ratio 1.1 Procalcitonin Urine Opiates Screen Urine Methadone Screen Ur Barbiturates Screen Ur Phencyclidine Scrn Ur Amphetamines Screen U Benzodiazepines Scrn U Oth Cocaine Metabols U Cannabinoids Screen
[2018-04-02] MEDS: Sodium Chloride 0.9% 1,000 ML IV SCH (04:00)
[2018-04-02] MEDS: metroNIDAZOLE IV 500 mg/100 ml 500 MG/100 ML BAG IVPB SCH ×3 (05:03→21:42)
[2018-04-02 07:02] LABS: BASO % 0.2 % (0.0-2.0); EOS # 0.1 K/uL (0.0-0.7); EOS % 1.2 % (0.0-4.0); HEMOGLOBIN 11.4 g/dL (12.0-18.0); LYMPH % 10.6 % (20.0-40.0); MEAN CELL VOLUME 83.9 fL (80.0-94.0); MEAN CORPUSCULAR HEMOGLOBIN 28.6 pg (27.0-31.0); MEAN PLATELET VOLUME 8.2 fL (7.2-11.7); MONO # 0.8 K/uL (0.0-0.8); MONO % 8.9 % (0.0-10.0); NEUT # 7.5 K/uL (1.8-7.0); NEUT % 79.1 % (50.0-75.0); RED CELL DISTRIBUTION WIDTH 14.2 % (11.5-14.5); WHITE BLOOD COUNT 9.5 K/uL (4.8-10.8)
--- NOTE | 2018-04-02 07:13 | CP.PCM.PN ---
<Cassandra Johnson - Last Filed: 04/02/18 19:17> Subjective - Date & Time of Evaluation Date of Evaluation: 04/02/18 Time of Evaluation: 07:12 - Subjective Subjective: PGY-1 Cassandra Johnson D.O. Medicine progress note for Dr. Simpson's service: Patient was seen and examined this morning. Patient says that he is feeling better. His diarrhea continues to improve. He still feels intermittent fevers/chills. Denies chest and abdominal pain. He is tolerating PO diet. Objective - Vital Signs/Intake and Output Vital Signs (last 24 hours): Temp Pulse Resp BP Pulse Ox 100.6 F H 97 H 20 108/69 95 04/02/18 05:13 04/01/18 23:05 04/01/18 23:05 04/01/18 23:05 04/01/18 23:05 Intake and Output: 04/02/18 04/02/18 06:59 18:59 Intake Total 1240 Balance 1240 - Medications Medications: Current Medications Acetaminophen (Tylenol 325mg Tab) 650 mg PO Q6 PRN PRN Reason: Fever >100.4 F Last Admin: 04/02/18 05:13 Dose: 650 mg Famotidine (Pepcid) 20 mg IVP DAILY [facility] Last Admin: 04/01/18 09:29 Dose: 20 mg Heparin Sodium (Porcine) (Heparin) 5,000 units SC Q12 [facility] Last Admin: 04/01/18 21:08 Dose: 5,000 units Metronidazole (Flagyl) 500 mg in 100 mls @ 100 mls/hr IVPB Q8H [facility]; Protocol Last Admin: 04/02/18 05:03 Dose: 100 mls/hr Meropenem 1 gm/ Sodium (Chloride) 100 mls @ 100 mls/hr IVPB Q8H [facility]; Protocol Last Admin: 04/01/18 22:13 Dose: 100 mls/hr Sodium Chloride (Sodium Chloride 0.9%) 1,000 mls @ 100 mls/hr IV .Q10H [facility] Last Admin: 04/02/18 04:00 Dose: 100 mls/hr Gentamicin Sulfate 80 mg/ (Sodium Chloride) 102 mls @ 100 mls/hr IVPB Q8H [facility]; Protocol Last Admin: 04/02/18 06:11 Dose: 100 mls/hr - Labs Labs: 04/02/18 06:52 04/01/18 07:18 - Additional Findings Additional findings: - Constitutional Appears: Non-toxic, No Acute Distress - Head Exam Head Exam: ATRAUMATIC, NORMAL INSPECTION - Eye Exam Eye Exam: EOMI, Normal appearance - ENT Exam ENT Exam: Mucous Membranes Moist - Neck Exam Neck Exam: Normal Inspection - Respiratory Exam Respiratory Exam: Clear to Auscultation Bilateral, NORMAL BREATHING PATTERN. absent: Respiratory Distress - Cardiovascular Exam Cardiovascular Exam: RRR, +S1, +S2 - GI/Abdominal Exam GI & Abdominal Exam: Soft. absent: Distended, Tenderness Negative Yi's sign - Extremities Exam Extremities Exam: Normal Inspection. absent: Pedal Edema - Neurological Exam Neurological Exam: Alert, Awake, CN II-XII Intact, Normal Gait, Oriented x3 - Psychiatric Exam Psychiatric exam: Normal Affect, Normal Mood - Skin Skin Exam: Dry, Normal Color, Warm Assessment and Plan - Assessment and Plan (Free Text) Assessment: Patient is a 47 yo male with history of recurrent UTIs and back pain/spasms who presented with fevers/chills and diarrhea. Found to be septic and have E. coli bacteremia. Also HIDA shows acute cholecystitis and CBD obstruction. Plan for lap stevo. Plan: Sepsis- E. coli bacteremia - Tmax 101.8, most recent fever 100.6 on 04/02 5AM - Tachycardic, hypotensive on admission- resolved - Leukocytosis improving - LA 2.1-->1.5 - Procal 3.95-->2.68 - Flu negative - Blood Cx: E. coli- pansensitive - f/u repeat Blood Cx - NS @ 100 mL/hr - Echo: normal EF, no vegetations, diastolic dysfunction - Tylenol 650 mg PO Q6H PRN - Flagyl 500 mg IV Q8H- started 03/31 - Merrem 1 g IV Q8H- started 04/01 - Gentamicin 80 mg IV Q8H- started 04/02 - ID consulted (Magdalene) Acute cholecystitis with Choledocolithiasis - Elevated LFTs- resolved - Elevated ALP- improving - HIDA: The cystic duct is occluded, presumptive evidence for acute stevo cystitis. - Surgery consulted (Emmanuel)- lap stevo tomorrow Diarrhea, improving - C. diff, stool leukocytes, stool Cx, O&P, Giardia negative - FOBT negative - Lactoferrin pending - UDS negative - TSH, free T4 wnl - NS @ 100 mL/hr - Replete electrolytes PRN Transaminitis, resolved- 2/2 CBD obstruction - Abd US: Prominent liver. Increased echogenicity of the hepatic parenchymal cortex suggestive for fatty infiltration versus hepatic parenchymal disease. Monophasic flow was documented in the hepatic vein. This is of uncertain clinical etiology. Underlying thrombus in the hepatic vein cannot be excluded. Cholelithiasis. Normal gallbladder wall thickness of 2.4 millimeters. No gross wall edema. Negative sonographic Yi's sign. Pancreas not well visualized. - CTA A/P: No CTA evidence of portal or hepatic vein thrombosis. Foci of low attenuation in the right liver lobe adjacent to the gallbladder may represent benign renal cyst versus small abscesses secondary to cholecystitis. Clinical correlation is suggested. Diffuse gallbladder wall thickening surrounding with mild fat stranding and trace fluid. Correlate clinically for cholecystitis. - HIDA: The cystic duct is occluded, presumptive evidence for acute cholecystitis. - Hepatitis panel negative - HIV negative - Tbili wnl - ALP down trending 314-->210 Muscle spasms (back), chronic - Tylenol 650 mg PO Q6H Ppx: VTE: SCDs GI: PTX 40 mg PO daily Code status: full code Case discussed with attending, Dr. Simpson. <Nayeli Simpson V - Last Filed: 04/03/18 08:38> Objective - Vital Signs/Intake and Output Vital Signs (last 24 hours): Temp Pulse Resp BP Pulse Ox 99.7 F H 112 H 20 114/69 95 04/03/18 04:55 04/02/18 23:05 04/02/18 23:05 04/02/18 23:05 04/02/18 23:05 Intake and Output: 04/03/18 04/03/18 06:59 18:59 Intake Total 680 Balance 680 - Medications Medications: Current Medications Acetaminophen (Tylenol 325mg Tab) 650 mg PO Q6 PRN PRN Reason: Fever >100.4 F Last Admin: 04/02/18 19:41 Dose: 650 mg Famotidine (Pepcid) 20 mg IVP DAILY [facility] Last Admin: 04/02/18 10:19 Dose: 20 mg Heparin Sodium (Porcine) (Heparin) 5,000 units SC Q12 [facility] Last Admin: 04/02/18 10:20 Dose: 5,000 units Metronidazole (Flagyl) 500 mg in 100 mls @ 100 mls/hr IVPB Q8H [facility]; Protocol Last Admin: 04/03/18 05:01 Dose: 100 mls/hr Meropenem 1 gm/ Sodium (Chloride) 100 mls @ 100 mls/hr IVPB Q8H [facility]; Protocol Last Admin: 04/03/18 07:36 Dose: 100 mls/hr Gentamicin Sulfate 80 mg/ (Sodium Chloride) 102 mls @ 100 mls/hr IVPB Q8H [facility]; Protocol Last Admin: 04/03/18 06:14 Dose: 100 mls/hr Sodium Chloride (Sodium Chloride 0.9%) 1,000 mls @ 100 mls/hr IV .Q10H [facility] - Labs Labs: 04/03/18 06:50 04/03/18 06:50 Attending/Attestation - Attestation I have personally seen and examined this patient.: Yes I have fully participated in the care of the patient.: Yes I have reviewed all pertinent clinical information, including history, physical exam and plan: Yes Notes (Text): This is late computer entry for 04/02/18. Patient seen, examined and case discussed with day-time resident. Patient underwent HIDA today given unclear etiology to E. coli bacteremia. HIDA result indicated positive for occluded cyst duct. Discussed with infectious disease. Recommend for surgery eval. Dr. Benitez workers compensation attorney for surgery; discussed with him, reports he will schedule patient for lap stevo tomorrow for the patient. I spoke with the patient, patient reports he is familiar with the procedure, his father had the same surgery when he was very sick. Surgery and anesthesia discuss risk and benefits of procedure prior to OR. Patient's ekg noted for sinus tachycardia, chest xray no acute findings. Blood cultures were repeated today. Continue antibiotics per infectious disease. Patient no longer reports diarrhea. Electrolyte repleted. liver function tests have normalized. Patient is medium r isk individual for medium risk procedure. Patient does not have reported cardiac history, no diabetes. Preoperative/intraoperative/postoperative per surgery.
[2018-04-02] MEDS: Meropenem 1 GM in Sodium Chloride 0.9% 100 ML IVPB SCH ×3 (07:15→22:36)
[2018-04-02 07:46] LABS: ALBUMIN 2.7 g/dL (3.5-5.0); ALT/SGPT 59 U/L (21-72); AST/SGOT 28 U/L (17-59); BLOOD UREA NITROGEN 8 mg/dL (9-20); CALCIUM 7.6 mg/dl (8.6-10.4); GFR NON-AFRICAN AMERICAN > 60
--- NOTE | 2018-04-02 08:11 | CON ---
DATE: 04/01/2018 HISTORY OF PRESENT ILLNESS: This patient gives a history of being sick from 10-12 days. He says he started to get sick after he ate some beans which came from [place], and they were cooked before for few days. He started to have watery diarrhea. He went several times to the bathroom and diarrhea was watery, nonbloody and at times he was not eating and then when he stopped eating it decreased to 2-3 a day. He was aware of having gallstones but he has no pain there. 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 He also had back pain in 08/2017 and he suffers from back pain, and he had some pain on the day when he came in. He also has history of recurrent UTIs, back pains, and spasms. His blood cultures were positive for gram-negatives and we had put him on Merrem and Flagyl. PAST MEDICAL HISTORY: He has had pneumonia in the past, history of dizziness and vertigo in the past, arthritis. PAST SURGICAL HISTORY: He has had no surgeries. ALLERGIES: HE IS ALLERGIC TO ASPIRIN, HE SAYS. MEDICATIONS: He was taking medicines for his back, cyclobenzaprine, Tylenol and Motrin. FAMILY HISTORY: Significant for mother at 60 with valvular heart disease. Father at 65 of colon cancer. 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 Two beers per week. Denies tobacco or alcohol abuse. Denies any substance abuse. MEDICATIONS: He is on Tylenol, Pepcid, heparin subcutaneously, Merrem, Flagyl, and IV fluids at 100 mL/hour. REVIEW OF SYSTEMS: He came in with basically diarrhea. He was having fevers and he said he started to have fever and chills that made him come by and he denies any ears, nose, or throat problems. He does have some nasal congestion and dry mouth. No sore throat. Denies any chest pain. No palpitations. No cough. No dyspnea. No hemoptysis. He has been having only diarrhea. Denied any nausea, vomiting or abdominal pain. Denies any urinary symptoms or hematuria or frequency or urgency. He suffers from back pain. He denies any skin problems. Denies any dizziness. Denies any anxiety or depression. He is fatigued. No endocrine problems. No hematological problems. PHYSICAL EXAMINATION: VITAL SIGNS: On examination, I find his temperature was 100.5 today, heart rate of 127, blood pressure is 97/61, respirations are 20. HEENT: Head is atraumatic, normocephalic. Pupils are reacting to light. Tongue is dry. NECK: Supple. JVP is flat. LUNGS: Clear. No crackles or rales present. HEART: S1, S2. Regular. ABDOMEN: Soft, nontender. No guarding, no rigidity present. EXTREMITIES: No edema, clubbing or cyanosis. LABORATORY DATA: Labs are noted. Labs show white count was 20-3.4, now is 15.2, hemoglobin is 12.3, hematocrit 37, platelet count is 164, bands are 1 now, neutrophils are 91. His lactate level was 2.1 when he came, now is 1.5 last. Chemistry shows total bilirubin is 1.4, alk phos is 223, AST is 80, and procalcitonin level is 2.68 today. Drug screen was all negative. Occult blood is negative. C. diff is negative. Hepatitis screen is negative. He also had a CAT scan and a chest x-ray. The chest x-ray showed mild venous congestion yesterday, and then he also had abdominal ultrasound, and abdominal ultrasound showed prominent liver, increased echogenicity of hepatic parenchymal cortex suggestive for fatty infiltration versus hepatic parenchymal disease, monophasic cj documented in hepatic vein, it is of uncertain etiology, underlying thrombus in the hepatic vein cannot be excluded, cholelithiasis, normal gallbladder wall thickness, no gross wall edema. I think after they noted this, he had CT angio, and the CT angio shows hepatic thrombus, and these people read, no evidence of portal or hepatic vein thrombosis, the hepatic artery is patent. There are small foci of low attenuation noted adjacent to the gallbladder fossa of uncertain etiology. The possibility of small abscess or other etiology is not totally excluded. The gallbladder is partially distended, demonstrates diffuse wall thickening and surrounding with inflammatory changes and pericholecystic fluid, so that goes with acute cholecystitis. IMPRESSION AND PLAN: Diffuse gallbladder surrounding in mild fat stranded and trace fluid, correlate clinically for cholecystitis. However, clinically he does not have any pain right now but it will remain on my list that he may have acute cholecystitis. He has gram-negative rods on the culture and he is still febrile, and right now when I am dictating, his blood pressure has dropped to 97/61. I would order a HIDA scan for tomorrow morning. Probably, we will add another antibiotic at this time and increase the fluids. Jeanette Del Castillo MD
[2018-04-02] MEDS ORDERED: Potassium Chloride 20 mEq ER Tab PO SCH (10:00)
[2018-04-02 11:23] LABS: C DIFF TOXIN A B NEGATIVE (NEGATIVE)
[2018-04-02 11:31] LABS: FECAL LEUKOCYTES NEGATIVE (NEGATIVE)
--- NOTE | 2018-04-02 15:15 | CP.PCM.PN ---
Subjective - Date & Time of Evaluation Date of Evaluation: 04/02/18 Time of Evaluation: 15:10 - Subjective Subjective: dictated Objective - Vital Signs/Intake and Output Vital Signs (last 24 hours): Temp Pulse Resp BP Pulse Ox 98.0 F 88 20 106/69 94 L 04/02/18 07:05 04/02/18 07:05 04/02/18 07:05 04/02/18 07:05 04/02/18 07:05 Intake and Output: 04/02/18 04/02/18 06:59 18:59 Intake Total 1240 Balance 1240 - Medications Medications: Current Medications Acetaminophen (Tylenol 325mg Tab) 650 mg PO Q6 PRN PRN Reason: Fever >100.4 F Last Admin: 04/02/18 12:56 Dose: 650 mg Famotidine (Pepcid) 20 mg IVP DAILY [facility] Last Admin: 04/02/18 10:19 Dose: 20 mg Heparin Sodium (Porcine) (Heparin) 5,000 units SC Q12 [facility]AD[facility] Last Admin: 04/02/18 10:20 Dose: 5,000 units Metronidazole (Flagyl) 500 mg in 100 mls @ 100 mls/hr IVPB Q8H [facility]AD[facility]; Protocol Last Admin: 04/02/18 13:45 Dose: 100 mls/hr Meropenem 1 gm/ Sodium (Chloride) 100 mls @ 100 mls/hr IVPB Q8H [facility]; Protocol Last Admin: 04/02/18 07:15 Dose: 100 mls/hr Gentamicin Sulfate 80 mg/ (Sodium Chloride) 102 mls @ 100 mls/hr IVPB Q8H [facility]AD[facility]; Protocol Last Admin: 04/02/18 14:52 Dose: 100 mls/hr - Labs Labs: 04/02/18 06:52 04/02/18 06:52
--- NOTE | 2018-04-02 15:31 | NM ---
Date of service: [facility] [place] 04/02/2018 PROCEDURE: Nuclear Medicine Hepatobiliary Scan HISTORY: gram negative septiciemia r/o cholecystitis COMPARISON: 03/31/2018 right upper quadrant ultrasound. Summary of findings on the comparison examination: Cholelithiasis. Normal gallbladder wall thickness. No gross wall edema. Negative sonographic Yi sign TECHNIQUE: 6.6 mCi of technetium 99m Mebrofenin was administered intravenously. Planar images of the abdomen were obtained at 5 min intervals to 60 mins. Delayed images were also obtained. FINDINGS: LIVER: Timely and homogenous uptake. COMMON BILE DUCT: identified at 10 mins. GALLBLADDER: Not visible at 03:00 hours. SMALL BOWEL: Identified at 10 mins. IMPRESSION: Abnormal hepatobiliary Scan. The cystic duct is occluded, presumptive evidence for acute cholecystitis.
[2018-04-03] MEDS: metroNIDAZOLE IV 500 mg/100 ml 500 MG/100 ML BAG IVPB SCH ×4 (05:01→17:48)
--- NOTE | 2018-04-03 06:55 | CP.PCM.PN ---
<Cassandra Johnson - Last Filed: 04/03/18 10:29> Subjective - Date & Time of Evaluation Date of Evaluation: 04/03/18 Time of Evaluation: 06:50 - Subjective Subjective: PGY-1 Cassandra Johnson D.O. Medicine progress note for Dr. Simpson's service: Patient was seen and examined this morning. Patient is going for cholecystectomy today. Patient says that he felt feverish early last night. He slept well. He denies any pain. He had a loose stool yesterday but not watery diarrhea as prior. He is tolerating a liquid diet- denies nausea and vomiting. Objective - Vital Signs/Intake and Output Vital Signs (last 24 hours): Temp Pulse Resp BP Pulse Ox 99.7 F H 112 H 20 114/69 95 04/03/18 04:55 04/02/18 23:05 04/02/18 23:05 04/02/18 23:05 04/02/18 23:05 Intake and Output: 04/02/18 04/03/18 18:59 06:59 Intake Total 680 Balance 680 - Medications Medications: Current Medications Acetaminophen (Tylenol 325mg Tab) 650 mg PO Q6 PRN PRN Reason: Fever >100.4 F Last Admin: 04/02/18 19:41 Dose: 650 mg Famotidine (Pepcid) 20 mg IVP DAILY [facility] Last Admin: 04/02/18 10:19 Dose: 20 mg Heparin Sodium (Porcine) (Heparin) 5,000 units SC Q12 THADDEUS Last Admin: 04/02/18 10:20 Dose: 5,000 units Metronidazole (Flagyl) 500 mg in 100 mls @ 100 mls/hr IVPB Q8H THADDEUS; Protocol Last Admin: 04/03/18 05:01 Dose: 100 mls/hr Meropenem 1 gm/ Sodium (Chloride) 100 mls @ 100 mls/hr IVPB Q8H THADDE[facility]; Protocol Last Admin: 04/02/18 22:36 Dose: 100 mls/hr Gentamicin Sulfate 80 mg/ (Sodium Chloride) 102 mls @ 100 mls/hr IVPB Q8H THAD[facility]; Protocol Last Admin: 04/03/18 06:14 Dose: 100 mls/hr - Labs Labs: 04/02/18 06:52 04/02/18 06:52 - Constitutional Appears: Non-toxic, No Acute Distress - Head Exam Head Exam: ATRAUMATIC, NORMAL INSPECTION - Eye Exam Eye Exam: EOMI, Normal appearance - ENT Exam ENT Exam: Normal Exam - Neck Exam Neck Exam: Normal Inspection - Respiratory Exam Respiratory Exam: Clear to Ausculation Bilateral, NORMAL BREATHING PATTERN. absent: Rales, Rhonchi, Wheezes, Respiratory Distress - Cardiovascular Exam Cardiovascular Exam: RRR, +S1, +S2 - GI/Abdominal Exam GI & Abdominal Exam: Soft. absent: Distended, Tenderness, Rebound - Extremities Exam Extremities Exam: Normal Inspection. absent: Pedal Edema, Tenderness - Neurological Exam Neurological Exam: Alert, Awake, CN II-XII Intact, Oriented x3 - Psychiatric Exam Psychiatric exam: Normal Affect, Normal Mood - Skin Skin Exam: Dry, Normal Color, Warm Assessment and Plan - Assessment and Plan (Free Text) Assessment: Patient is a 47 yo male with history of recurrent UTIs and back pain/spasms who presented with fevers/chills and diarrhea. Found to be septic and have E. coli bacteremia. Also HIDA shows acute cholecystitis and CBD obstruction. Plan for lap stevo today. Plan: Sepsis- E. coli bacteremia - Most recent fever 102.7 on 04/02 at 8PM - Tachycardic, hypotensive on admission- resolved - Leukocytosis and bandemia resolved (WBC 23.4, bands 17 on admission) - LA 2.1-->1.5 - Procal 3.95-->2.68 - f/u repeat procal - Flu negative - Blood Cx: E. coli- pansensitive - f/u repeat Blood Cx - NS @ 100 mL/hr - Echo: normal EF, no vegetations, diastolic dysfunction - Tylenol 650 mg PO Q6H PRN - Flagyl 500 mg IV Q8H- started 03/31 - Merrem 1 g IV Q8H- started 04/01 - Gentamicin 80 mg IV Q8H- started 04/02 - ID consulted (Magdalene) Acute cholecystitis with Choledocolithiasis - Elevated LFTs- resolved - Elevated ALP- improving - Tbili wnl - ALP down trending 314-->236 - HIDA: The cystic duct is occluded, presumptive evidence for acute cholecystitis. - Surgery consulted (Emmanuel)- lap stevo today afternoon 04/03 Diarrhea, improving - C. diff, stool leukocytes, stool Cx, O&P, Giardia negative - FOBT negative - Lactoferrin pending - UDS negative - TSH, free T4 wnl - NS @ 100 mL/hr - Replete electrolytes PRN Transaminitis, resolved- 2/2 CBD obstruction - Abd US: Prominent liver. Increased echogenicity of the hepatic parenchymal cortex suggestive for fatty infiltration versus hepatic parenchymal disease. Monophasic flow was documented in the hepatic vein. This is of uncertain clinical etiology. Underlying thrombus in the hepatic vein cannot be excluded. Cholelithiasis. Normal gallbladder wall thickness of 2.4 millimeters. No gross wall edema. Negative sonographic Yi's sign. Pancreas not well visualized. - CTA A/P: No CTA evidence of portal or hepatic vein thrombosis. Foci of low attenuation in the right liver lobe adjacent to the gallbladder may represent benign renal cyst versus small abscesses secondary to cholecystitis. Clinical correlation is suggested. Diffuse gallbladder wall thickening surrounding with mild fat stranding and trace fluid. Correlate clinically for cholecystitis. - HIDA: The cystic duct is occluded, presumptive evidence for acute cholecystitis. - Hepatitis panel negative - HIV negative - Tbili wnl Muscle spasms (back), chronic - Tylenol 650 mg PO Q6H Ppx: VTE: SCDs, heparin 5000 units SC Q12H- held for surgery GI: Pepcid mg IV daily Code status: full code Case discussed with attending, Dr. Simpson. <Nayeli Simpson V - Last Filed: 04/05/18 23:59> Objective - Vital Signs/Intake and Output Vital Signs (last 24 hours): Temp Pulse Resp BP Pulse Ox 98.6 F 100 H 20 112/75 97 04/05/18 21:06 04/05/18 15:00 04/05/18 15:00 04/05/18 15:00 04/05/18 15:00 - Medications Medications: Current Medications Acetaminophen (Tylenol 325mg Tab) 650 mg PO Q6 PRN PRN Reason: Fever >100.4 F Last Admin: 04/02/18 19:41 Dose: 650 mg Benzocaine/Menthol (Cepacol Sore Throat) 1 kevin MT Q6 PRN PRN Reason: Sore Throat Last Admin: 04/05/18 11:02 Dose: 1 kevin Docusate Sodium (Colace) 100 mg PO BID [facility] Last Admin: 04/05/18 17:51 Dose: 100 mg Famotidine (Pepcid) 20 mg PO BID [facility] Last Admin: 04/05/18 17:50 Dose: 20 mg Meropenem 1 gm/ Sodium (Chloride) 100 mls @ 100 mls/hr IVPB Q8H [facility]; Protocol Last Admin: 04/05/18 22:07 Dose: 100 mls/hr Metronidazole (Flagyl) 500 mg in 100 mls @ 100 mls/hr IVPB Q8H [facility]; Protocol Last Admin: 04/05/18 23:49 Dose: 100 mls/hr Lactobacillus Acidophilus (Bacid Acidophilus) 1 cap PO BID [facility] Last Admin: 04/05/18 17:51 Dose: 1 cap Oxycodone/Acetaminophen (Percocet 5/325 Mg Tab) 2 tab PO Q4H PRN PRN Reason: Pain, severe (8-10) Stop: 04/06/18 14:46 Last Admin: 04/05/18 14:42 Dose: 2 tab Oxycodone/Acetaminophen (Percocet 5/325 Mg Tab) 1 tab PO Q4H PRN PRN Reason: Pain, moderate (4-7) Stop: 04/07/18 07:01 Last Admin: 04/04/18 18:04 Dose: 1 tab - Labs Labs: 04/05/18 06:51 04/05/18 06:51 PT 14.6 SECONDS (9.7-12.2) H 04/03/18 11:34 INR 1.3 04/03/18 11:34 APTT 40 SECONDS (21-34) H 04/03/18 11:34 Assessment and Plan (1) Sepsis Status: Acute (2) E coli bacteremia Status: Acute (3) Essential hypertension Status: Acute (4) Cholecystitis Status: Acute (5) Prophylactic measure Status: Acute Attending/Attestation - Attestation I have personally seen and examined this patient.: Yes I have fully participated in the care of the patient.: Yes I have reviewed all pertinent clinical information, including history, physical exam and plan: Yes Notes (Text): This is late computer entry for 04/03/18. Patient seen, examined and case discussed with day-time resident. Patient seen prior to OR as well as postoperative in the PACU. Discussed with surgery, patient noted to have pretty bad gallbladder; placed drain; recommended for MRCP post procedure. Patient Completed repeat blood cultures yesterday. Will continue IV abx per ID. preop/intraop/postoperative management per surgery. Assessment/Plan 1. Sepsis secondary to E. coli bacteremia and Acute Cholecystitis Assessment/Plan * Criteria:febrile ; Tachycardic, hypotensive on admission secondary to E.Coli bactermia * Meropenem 1gm IVPB Q8H (active since 03/31/18) * Flagyl 500mg IV Q8H (active since 04/03/18) * Procalcitonin: 3.95; 2.68 * General surgery (Dr. Benitez) international tax manager-->help appreciated * HIDA Scan: positive for occluded cystic duct * preop/intraop/postoperative management * Infectious Disease (Dr. Del Castillo) international tax manager-->help appreciated * Blood culture (03/31/18): E. Coli X2 * Blood culture (04/02/17): no growth * Urine Culture (03/31/18): no growth * Stool culture (03/31/18): no salmonella, shigella, no camplobacter * Abd US: Prominent liver. Increased echogenicity of the hepatic parenchymal cortex suggestive for fatty infiltration versus hepatic parenchymal disease. Monophasic flow was documented in the hepatic vein. This is of uncertain clinical etiology. Underlying thrombus in the hepatic vein cannot be excluded. Cholelithiasis. Normal gallbladder wall thickness of 2.4 millimeters. No gross wall edema. Negative sonographic Yi's sign. 2. Acute on Chronic cholecystitis with Choledocolithiasis Assessment/Plan * Meropenem 1gm IVPB Q8H (active since 03/31/18) * Flagyl 500mg IV Q8H (active since 04/03/18) * Procalcitonin: 3.95; 2.68--> repeat procalcitonin * General surgery (Dr. 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 Diarrhea (resolved) Assessment/Plan * C. diff, stool leukocytes, stool Cx, O&P, Giardia negative * FOBT negative * Lactoferrin pending 4. Transaminitis, resolved- 2/2 CBD obstruction Assessment/Plan * Abd US: Prominent liver. Increased echogenicity of the hepatic parenchymal cortex suggestive for fatty infiltration versus hepatic parenchymal disease. Monophasic flow was documented in the hepatic vein. This is of uncertain clinical etiology. Underlying thrombus in the hepatic vein cannot be excluded. Cholelithiasis. Normal gallbladder wall thickness of 2.4 millimeters. No gross wall edema. Negative sonographic Yi's sign. Pancreas not well visualized. * CTA A/P: No CTA evidence of portal or hepatic vein thrombosis. Foci of low attenuation in the right liver lobe adjacent to the gallbladder may represent benign renal cyst versus small abscesses secondary to cholecystitis. Clinical correlation is suggested. Diffuse gallbladder wall thickening surrounding with mild fat stranding and trace fluid. Correlate clinically for cholecystitis. * HIDA: The cystic duct is occluded, presumptive evidence for acute cholecystitis. * Hepatitis panel negative * HIV negative * Tbili wnl 5. Ppx: * Chemical anticoagulation since prior OR; awaiting surgery to determine when to restart * Patient is NPO until surgery evaluates patient this morning Disposition: patient is pending surgery intervention. Patient is postoperative day 0. postoperative management per surgery. f/u repeat cultures.
[2018-04-03] MEDS ORDERED: Sodium Chloride 0.9% 1,000 ML IV SCH (07:00)
[2018-04-03 07:20] LABS: BASO % 0.3 % (0.0-2.0); EOS # 0.1 K/uL (0.0-0.7); EOS % 1.1 % (0.0-4.0); HEMOGLOBIN 12.5 g/dL (12.0-18.0); LYMPH % 11.9 % (20.0-40.0); MEAN CORPUSCULAR HGB CONC 33.8 g/dL (33.0-37.0); MEAN PLATELET VOLUME 7.9 fL (7.2-11.7); MONO # 1.1 K/uL (0.0-0.8); MONO % 12.8 % (0.0-10.0); NEUT # 6.1 K/uL (1.8-7.0); NEUT % 73.9 % (50.0-75.0); RBC 4.44 Mil/uL (4.40-5.90); RED CELL DISTRIBUTION WIDTH 14.5 % (11.5-14.5); WHITE BLOOD COUNT 8.3 K/uL (4.8-10.8)
--- NOTE | 2018-04-03 07:28 | PN ---
DATE: 04/02/2018 SUBJECTIVE: The patient was seen today. He went for HIDA scan which showed cystic duct obstruction. I went to see him, but report was pending at this time. At this time when I am dictating my note, his temperature is 102.7, pulse is 96. His blood cultures have turned out to be E. coli which is very sensitive. Respiratory rate is 20 and the pulse rate is 96. They have called in a surgery, surgical eval. He was telling me that he still has soft BMs, and they are not formed yet. PHYSICAL EXAMINATION: HEENT: Head is atraumatic, normocephalic. NECK: Supple. LUNGS: Clear. HEART: S1 and S2, regular. ABDOMEN: Soft, nontender. No guarding, no rigidity present. EXTREMITIES: Have no edema. LABORATORY DATA: Labs show white count is 9.5, hemoglobin is 11.4, hematocrit is 33.6. Heart rate of 127. ASSESSMENT AND PLAN: Blood culture, I already said, Escherichia coli and sensitivity showed it is Cipro and gentamicin sensitive and sensitive to meropenem. The other thing is he was having diarrhea still. Dr. Benitez has been called in on consult now. I find we are still doing stool studies and we will follow. Jeanette Del Castillo MD
[2018-04-03] MEDS: Meropenem 1 GM in Sodium Chloride 0.9% 100 ML IVPB SCH ×3 (07:36→22:22)
[2018-04-03 07:39] LABS: ALB/GLOB RATIO 1.1 (1.0-2.1); ALBUMIN 3.2 g/dL (3.5-5.0); ALT/SGPT 50 U/L (21-72); AST/SGOT 28 U/L (17-59); BLOOD UREA NITROGEN 6 mg/dL (9-20); GFR NON-AFRICAN AMERICAN > 60
[2018-04-03 11:49] LABS: INR 1.3; PROTHROMBIN TIME 14.6 SECONDS (9.7-12.2)
[2018-04-03] MEDS ORDERED: Propofol 10 mg/ml Inj (20 ML) ONE (12:43)
[2018-04-03] MEDS ORDERED: Midazolam 2 MG/2 ML VIAL ONE (12:44)
[2018-04-03] MEDS ORDERED: Rocuronium 10 mg/ml (5 ml) ONE (13:20)
[2018-04-03] MEDS ORDERED: Succinylcholine Chloride 20 mg/ml Syr (5 ml) IV ONE (13:20)
--- NOTE | 2018-04-03 13:54 | CARD ---
APPROVED REPORT Date of service: 04/02/2018 EKG Measurement Heart [id number] <Conclusion> Sinus tachycardia rsr in v1 Borderline ECG
[2018-04-03] MEDS ORDERED: HYDROmorphone 0.5 mg/0.5 ml ISec IVP PRN (14:50)
[2018-04-03] MEDS ORDERED: Lactated Ringer's 1,000 ML IV SCH (15:00)
[2018-04-03] MEDS: Dextrose 5%/0.45% NS 1,000 ML IV SCH ×2 (15:49→17:48)
[2018-04-03] MEDS: Oxycodone/Acetaminophen 5/325 mg Tab PO PRN ×2 (16:59→20:52)
[2018-04-04] MEDS: metroNIDAZOLE IV 500 mg/100 ml 500 MG/100 ML BAG IVPB SCH ×4 (00:11→23:48)
[2018-04-04] MEDS: Dextrose 5%/0.45% NS 1,000 ML IV SCH (03:30)
[2018-04-04] MEDS: Meropenem 1 GM in Sodium Chloride 0.9% 100 ML IVPB SCH ×3 (06:25→23:00)
--- NOTE | 2018-04-04 06:30 | CP.PCM.PN ---
Subjective - Date & Time of Evaluation Date of Evaluation: 04/04/18 Time of Evaluation: 06:28 - Subjective Subjective: PGY-1 Cassandra Johnson D.O. Medicine progress note for Dr. Simpson's service: Patient was seen and examined this morning. Objective - Vital Signs/Intake and Output Vital Signs (last 24 hours): Temp Pulse Resp BP Pulse Ox 100.6 F H 101 H 20 109/65 95 04/04/18 04:23 04/04/18 04:23 04/04/18 04:23 04/04/18 04:23 04/04/18 04:23 Intake and Output: 04/03/18 04/04/18 18:59 06:59 Intake Total 1600 1780 Output Total 150 590 Balance 1450 1190 - Medications Medications: Current Medications Acetaminophen (Tylenol 325mg Tab) 650 mg PO Q6 PRN PRN Reason: Fever >100.4 F Last Admin: 04/02/18 19:41 Dose: 650 mg Docusate Sodium (Colace) 100 mg PO BID [facility] Last Admin: 04/03/18 17:50 Dose: 100 mg Famotidine (Pepcid) 20 mg IVP DAILY [facility] Last Admin: 04/03/18 09:35 Dose: 20 mg Heparin Sodium (Porcine) (Heparin) 5,000 units SC Q12 [facility] Last Admin: 04/02/18 10:20 Dose: 5,000 units Meropenem 1 gm/ Sodium (Chloride) 100 mls @ 100 mls/hr IVPB Q8H [facility]; Protocol Last Admin: 04/03/18 22:22 Dose: 100 mls/hr Lactated Ringer's (Lactated Ringer's) 1,000 mls @ 100 mls/hr IV .Q10H [facility] Last Admin: 04/03/18 15:26 Dose: Not Given Dextrose/Sodium Chloride (Dextrose 5%/0.45% Ns 1000 Ml) 1,000 mls @ 80 mls/hr IV .[id number] [facility] Last Admin: 04/04/18 03:30 Dose: Not Given Metronidazole (Flagyl) 500 mg in 100 mls @ 100 mls/hr IVPB Q8H [facility]; Protocol Last Admin: 04/04/18 00:11 Dose: 100 mls/hr Oxycodone/Acetaminophen (Percocet 5/325 Mg Tab) 2 tab PO Q4H PRN PRN Reason: pain Stop: 04/06/18 14:46 Last Admin: 04/03/18 20:52 Dose: 2 tab - Labs Labs: 04/03/18 06:50 04/03/18 06:50 PT 14.6 SECONDS (9.7-12.2) H 04/03/18 11:34 INR 1.3 04/03/18 11:34 APTT 40 SECONDS (21-34) H 04/03/18 11:34 - Additional Findings Additional findings: - Constitutional Appears: Non-toxic, No Acute Distress - Head Exam Head Exam: ATRAUMATIC, NORMAL INSPECTION - Eye Exam Eye Exam: EOMI, Normal appearance - ENT Exam ENT Exam: Normal Exam - Neck Exam Neck Exam: Normal Inspection - Respiratory Exam Respiratory Exam: Clear to Ausculation Bilateral, NORMAL BREATHING PATTERN. absent: Rales, Rhonchi, Wheezes, Respiratory Distress - Cardiovascular Exam Cardiovascular Exam: RRR, +S1, +S2 - GI/Abdominal Exam GI & Abdominal Exam: Soft. absent: Distended, Tenderness, Rebound - Extremities Exam Extremities Exam: Normal Inspection. absent: Pedal Edema, Tenderness - Neurological Exam Neurological Exam: Alert, Awake, CN II-XII Intact, Oriented x3 - Psychiatric Exam Psychiatric exam: Normal Affect, Normal Mood - Skin Skin Exam: Dry, Normal Color, Warm Assessment and Plan - Assessment and Plan (Free Text) Assessment: Patient is a 47 yo male with history of recurrent UTIs and back pain/spasms who presented with fevers/chills and diarrhea. Found to be septic and have E. coli bacteremia. Also HIDA shows acute cholecystitis and CBD obstruction. POD1 lap stevo. Plan: Sepsis- E. coli bacteremia - Most recent fever 102.7 on 04/02 at 8PM - Tachycardic, hypotensive on admission- resolved - Leukocytosis and bandemia resolved (WBC 23.4, bands 17 on admission) - LA 2.1-->1.5 - Procal 3.95-->2.68 - f/u repeat procal - Flu negative - Blood Cx: E. coli- pansensitive - Repeat Blood Cx no growth >24 hrs - NS @ 100 mL/hr - Echo: normal EF, no vegetations, diastolic dysfunction - Tylenol 650 mg PO Q6H PRN - Flagyl 500 mg IV Q8H- started 03/31 - Merrem 1 g IV Q8H- started 04/01 - Gentamicin 80 mg IV Q8H- started 04/02 - ID consulted (Magdalene) Acute cholecystitis with Choledocolithiasis- POD1 lap stevo today afternoon 04/03 - Elevated LFTs- resolved - Elevated ALP- improving - Tbili wnl - ALP down trending 314-->236 - HIDA: The cystic duct is occluded, presumptive evidence for acute c holecystitis. - MRCP pre-op - f/u repeat MRCP - Surgery consulted (Emmanuel) Diarrhea, improving - C. diff, stool leukocytes, stool Cx, O&P, Giardia negative - FOBT negative - Lactoferrin pending - UDS negative - TSH, free T4 wnl - NS @ 100 mL/hr - Replete electrolytes PRN Transaminitis, resolved- 2/2 CBD obstruction - Abd US: Prominent liver. Increased echogenicity of the hepatic parenchymal cortex suggestive for fatty infiltration versus hepatic parenchymal disease. Monophasic flow was documented in the hepatic vein. This is of uncertain clinical etiology. Underlying thrombus in the hepatic vein cannot be excluded. Cholelithiasis. Normal gallbladder wall thickness of 2.4 millimeters. No gross wall edema. Negative sonographic Yi's sign. Pancreas not well visualized. - CTA A/P: No CTA evidence of portal or hepatic vein thrombosis. Foci of low attenuation in the right liver lobe adjacent to the gallbladder may represent benign renal cyst versus small abscesses secondary to cholecystitis. Clinical correlation is suggested. Diffuse gallbladder wall thickening surrounding with mild fat stranding and trace fluid. Correlate clinically for cholecystitis. - HIDA: The cystic duct is occluded, presumptive evidence for acute c holecystitis. - Hepatitis panel negative - HIV negative - Tbili wnl Muscle spasms (back), chronic - Tylenol 650 mg PO Q6H Ppx: VTE: SCDs, heparin 5000 units SC Q12H- held for surgery GI: Pepcid mg IV daily Code status: full code Case discussed with attending, Dr. Simpson.
--- NOTE | 2018-04-04 06:37 | OP ---
PROCEDURE DATE: 04/03/2018 PREOPERATIVE DIAGNOSIS: Acute cholecystitis. POSTOPERATIVE DIAGNOSIS: Acute cholecystitis. PROCEDURE PERFORMED: Laparoscopic cholecystectomy. SURGEON: Andrzej Benitez MD KNITTER MACHINE: Ross Baig MD ANESTHESIA: General endotracheal. ESTIMATED BLOOD LOSS: 150 mL. POSTOPERATIVE CONDITION: Stable. INDICATION FOR SURGERY: This is a 47-year-old male who admitted to the hospital with sepsis and found to have acute cholecystitis. He gives no previous history of gallbladder disease, and he is now taken to the operating room for laparoscopic cholecystectomy. GROSS FINDINGS: There was a large amount of inflammation surrounding the gallbladder consistent with severe [id number] cholecystis. The gallbladder was shrunken and scarred, and the structures within Calot's triangle were scar, which made dissection very difficult; however through careful blunt patient dissection, we were able to finally delineate the cystic duct and cystic artery after taking tissue both off the liver and off the gallbladder bed. Anatomy was clearly identified prior to clipping the cystic duct. There was no plane between the gallbladder and liver and as a result, the portion of the liver bed within the gallbladder bed had to be removed in order to remove the gallbladder. There was some oozing after the removal; however, this was eventually controlled with cautery and Surgicel. DESCRIPTION OF PROCEDURE: The patient was taken to the operating room. General anesthesia was administered. The abdomen was prepped and draped. A periumbilical cut down was performed, and a blunt pole was inserted through the abdomen. The abdomen was insufflated with CO2 under direct vision. The remaining ports were placed. First, there was omentum and mesentery attached to the liver bed surrounding gallbladder. This was taken down sharply using Endo Francesco. Any rents within the liver bed were controlled using the cautery. Once this was completely taken down, the omentum and surrounding mesentery was taken off the gallbladder to careful dissection; however, this tissue was very hardened and dissection was difficult. Once the Calot's triangle was exposed, careful dissection took place within it mostly with the suction devices. There was a fair amount of oozing during this maneuver. Once the cystic duct was delineated, it was carefully dissected, freed and was noted that the cystic artery was also within the dissected portion. They both were clipped simultaneously with three clips distally, one clip proximally and divided. This left the liver and the gallbladder bed which was basically "backed in" to the bed and had to be removed through direct extraction within the liver bed. Once this was accomplished using the cautery, all vigorous bleeders were controlled, leaving only oozing. Gallbladder bed was irrigated and the Surgicel was placed within it, and all the areas of oozing were controlled. The Surgicel was eventually removed and any further bleeding was controlled using the cautery. A Vahe drain was left in the liver bed and brought out through one lateral port wound. The fascial defect was closed with heavy Vicryl, and skin was closed with skin clips. The patient tolerated the procedure well and returned to recovery room in stable condition. Andrzej Benitez MD
[2018-04-04 06:53] LABS: BASO % 0.2 % (0.0-2.0); EOS # 0.1 K/uL (0.0-0.7); EOS % 1.2 % (0.0-4.0); HEMOGLOBIN 11.5 g/dL (12.0-18.0); LYMPH # 1.4 K/uL (1.0-4.3); LYMPH % 13.2 % (20.0-40.0); MEAN CELL VOLUME 83.2 fL (80.0-94.0); MEAN CORPUSCULAR HGB CONC 33.6 g/dL (33.0-37.0); MEAN PLATELET VOLUME 7.8 fL (7.2-11.7); MONO # 1.6 K/uL (0.0-0.8); MONO % 14.3 % (0.0-10.0); NEUT # 7.7 K/uL (1.8-7.0); NEUT % 71.1 % (50.0-75.0); RBC 4.12 Mil/uL (4.40-5.90); RED CELL DISTRIBUTION WIDTH 14.2 % (11.5-14.5); WHITE BLOOD COUNT 10.9 K/uL (4.8-10.8)
[2018-04-04 07:07] LABS: ALB/GLOB RATIO 1.1 (1.0-2.1); ALBUMIN 2.9 g/dL (3.5-5.0); ALT/SGPT 55 U/L (21-72); AST/SGOT 57 U/L (17-59); BLOOD UREA NITROGEN 9 mg/dL (9-20); CALCIUM 7.5 mg/dl (8.6-10.4); GFR NON-AFRICAN AMERICAN > 60
[2018-04-04] MEDS: Oxycodone/Acetaminophen 5/325 mg Tab PO PRN ×5 (09:06→20:55)
--- NOTE | 2018-04-04 11:00 | CP.PCM.PN ---
Subjective - Date & Time of Evaluation Date of Evaluation: 04/04/18 Time of Evaluation: 10:50 - Subjective Subjective: Medical Attending Note: Patient seen and examined this morning. Patient has urinated post procedure but has not used the bathroom post procedure. Patient denies chest pain, denies shortness of breathe, reports abdominal pain is 4/10 on pain scale, denies nausea, denies vomitting. Discussed with Leti patient's nurse, Dr. Benitez will come to evaluate the patient this morning. Patient has stainless caitlyn which prevents him from getting the MRCP ordered by surgeon. Patient is presently NPO until he is evaluated by surgery. Objective - Vital Signs/Intake and Output Vital Signs (last 24 hours): Temp Pulse Resp BP Pulse Ox 97.9 F 107 H 20 106/69 95 04/04/18 07:05 04/04/18 07:05 04/04/18 07:05 04/04/18 07:05 04/04/18 07:05 Intake and Output: 04/04/18 04/04/18 06:59 18:59 Intake Total 1780 Output Total 590 Balance 1190 - Medications Medications: Current Medications Acetaminophen (Tylenol 325mg Tab) 650 mg PO Q6 PRN PRN Reason: Fever >100.4 F Last Admin: 04/02/18 19:41 Dose: 650 mg Docusate Sodium (Colace) 100 mg PO BID [facility] Last Admin: 04/04/18 09:06 Dose: 100 mg Famotidine (Pepcid) 20 mg IVP DAILY [facility] Last Admin: 04/04/18 09:07 Dose: 20 mg Heparin Sodium (Porcine) (Heparin) 5,000 units SC Q12 [facility] Last Admin: 04/02/18 10:20 Dose: 5,000 units Meropenem 1 gm/ Sodium (Chloride) 100 mls @ 100 mls/hr IVPB Q8H [facility]; Protocol Last Admin: 04/03/18 22:22 Dose: 100 mls/hr Dextrose/Sodium Chloride (Dextrose 5%/0.45% Ns 1000 Ml) 1,000 mls @ 80 mls/hr IV .[id number] [facility] Last Admin: 04/04/18 03:30 Dose: Not Given Metronidazole (Flagyl) 500 mg in 100 mls @ 100 mls/hr IVPB Q8H [facility]; Protocol Last Admin: 04/04/18 09:06 Dose: 100 mls/hr Oxycodone/Acetaminophen (Percocet 5/325 Mg Tab) 2 tab PO Q4H PRN PRN Reason: Pain, severe (8-10) Stop: 04/06/18 14:46 Oxycodone/Acetaminophen (Percocet 5/325 Mg Tab) 1 tab PO Q4H PRN PRN Reason: Pain, moderate (4-7) Stop: 04/07/18 07:01 Last Admin: 04/04/18 09:06 Dose: 1 tab - Labs Labs: 04/04/18 06:46 04/04/18 06:46 PT 14.6 SECONDS (9.7-12.2) H 04/03/18 11:34 INR 1.3 04/03/18 11:34 APTT 40 SECONDS (21-34) H 04/03/18 11:34 - Constitutional Appears: Non-toxic, No Acute Distress - Head Exam Head Exam: NORMAL INSPECTION - Eye Exam Eye Exam: EOMI - ENT Exam ENT Exam: Mucous Membranes Moist - Respiratory Exam Respiratory Exam: Clear to Ausculation Bilateral, NORMAL BREATHING PATTERN. absent: Rales, Rhonchi, Wheezes - Cardiovascular Exam Cardiovascular Exam: REGULAR RHYTHM, +S1, +S2 - GI/Abdominal Exam GI & Abdominal Exam: Distended (mild), Guarding (over the surgery site), Soft, Normal Bowel Sounds. absent: Rigid Additional comments: patient has Jpeg over the right lower quadrant; tender to palpation. bloody output noted - Neurological Exam Neurological Exam: Alert, Awake, Oriented x3 Neuro motor strength exam: Left Upper Extremity: 5, Right Upper Extremity: 5, Le ft Lower Extremity: 5, Right Lower Extremity: 5 - Psychiatric Exam Psychiatric exam: Normal Affect, Normal Mood - Skin Skin Exam: Dry, Intact, Normal Color, Warm Assessment and Plan (1) Sepsis Status: Acute (2) E coli bacteremia Status: Acute (3) Essential hypertension Status: Acute (4) Cholecystitis Status: Acute (5) Prophylactic measure Status: Acute Attending/Attestation - Attestation I have personally seen and examined this patient.: Yes I have fully participated in the care of the patient.: Yes I have reviewed all pertinent clinical information, including history, physical exam and plan: Yes Notes (Text): 1. Sepsis secondary to E. coli bacteremia and Acute Cholecystitis Assessment/Plan * Criteria: Tmax: 101F (04/03/18: 20:43); Tachycardic, hypotensive on admission secondary to E.Coli bactermia * Meropenem 1gm IVPB Q8H (active since 03/31/18) * Flagyl 500mg IV Q8H (active since 04/03/18) * Procalcitonin: 3.95; 2.68--> repeat procalcitonin * General surgery (Dr. Benitez) salesperson neckties-->help appreciated * HIDA Scan: positive for occluded cystic duct * preop/intraop/postoperative management * Infectious Disease (Dr. Del Castillo) salesperson neckties-->help appreciated * Blood culture (03/31/18): E. Coli X2 * Blood culture (04/02/17): no growth after 24 hours X2 * Urine Culture (03/31/18): no growth * Stool culture (03/31/18): no salmonella, shigella, no camplobacter * Abd US: Prominent liver. Increased echogenicity of the hepatic parenchymal cortex suggestive for fatty infiltration versus hepatic parenchymal disease. Monophasic flow was documented in the hepatic vein. This is of uncertain clinical etiology. Underlying thrombus in the hepatic vein cannot be excluded. Cholelithiasis. Normal gallbladder wall thickness of 2.4 millimeters. No gross wall edema. Negative sonographic Yi's sign. 2. Acute on Chronic cholecystitis with Choledocolithiasis Assessment/Plan * Meropenem 1gm IVPB Q8H (active since 03/31/18) * Flagyl 500mg IV Q8H (active since 04/03/18) * Procalcitonin: 3.95; 2.68--> repeat procalcitonin * General surgery (Dr. Benitez) salesperson neckties-->help appreciated * HIDA Scan: positive for occluded cystic duct * preop/intraop/postoperative management * Patient unable to get MRCP secondary to stainless steal caitlyn; surgery to assess this morning * Patient underwent lap chol 03/24/18 * Patient is compliant on incentive spirometry 3. Diarrhea (resolved) Assessment/Plan * C. diff, stool leukocytes, stool Cx, O&P, Giardia negative * FOBT negative * Lactoferrin pending 4. Transaminitis, resolved- 2/2 CBD obstruction Assessment/Plan * Abd US: Prominent liver. Increased echogenicity of the hepatic parenchymal cortex suggestive for fatty infiltration versus hepatic parenchymal disease. Monophasic flow was documented in the hepatic vein. This is of uncertain clinical etiology. Underlying thrombus in the hepatic vein cannot be excluded. Cholelithiasis. Normal gallbladder wall thickness of 2.4 millimeters. No gross wall edema. Negative sonographic Yi's sign. Pancreas not well visualized. * CTA A/P: No CTA evidence of portal or hepatic vein thrombosis. Foci of low attenuation in the right liver lobe adjacent to the gallbladder may represent benign renal cyst versus small abscesses secondary to cholecystitis. Clinical correlation is suggested. Diffuse gallbladder wall thickening surrounding with mild fat stranding and trace fluid. Correlate clinically for cholecystitis. * HIDA: The cystic duct is occluded, presumptive evidence for acute cholecystitis. * Hepatitis panel negative * HIV negative * Tbili wnl 5. Ppx: * Chemical anticoagulation since prior OR; awaiting surgery to determine when to restart * Patient is NPO until surgery evaluates patient this morning Disposition: patient is pending surgery evaluation this morning. Patient is postoperative day 1. postoperative management per surgery. Repeat cultures are negative.
--- NOTE | 2018-04-04 16:22 | RAD ---
HISTORY: post-op fever COMPARISON: Chest x-ray performed 03/31/18 TECHNIQUE: Chest, one view. FINDINGS: Examination limited by habitus and hypoinflation. LUNGS: Hypoinflation. Right basilar atelectasis/infiltrate. Please note that chest x-ray has limited sensitivity for the detection of pulmonary masses. PLEURA: No significant pleural effusion identified. No definite pneumothorax . CARDIOVASCULAR: Borderline cardiomegaly. No significant atherosclerotic calcification present. OSSEOUS STRUCTURES: Mild degenerative changes. VISUALIZED UPPER ABDOMEN: Unremarkable. OTHER FINDINGS: None. IMPRESSION: Mild right basilar atelectasis/infiltrate. Borderline cardiomegaly. Hypoinflation.
[2018-04-05] MEDS: Meropenem 1 GM in Sodium Chloride 0.9% 100 ML IVPB SCH ×3 (06:14→22:07)
[2018-04-05 06:56] LABS: BASO % 0.3 % (0.0-2.0); EOS # 0.3 K/uL (0.0-0.7); EOS % 2.6 % (0.0-4.0); HEMOGLOBIN 11.9 g/dL (12.0-18.0); LYMPH # 1.4 K/uL (1.0-4.3); LYMPH % 14.8 % (20.0-40.0); MEAN CELL VOLUME 82.3 fL (80.0-94.0); MEAN CORPUSCULAR HEMOGLOBIN 28.3 pg (27.0-31.0); MEAN CORPUSCULAR HGB CONC 34.3 g/dL (33.0-37.0); MEAN PLATELET VOLUME 7.7 fL (7.2-11.7); MONO # 1.3 K/uL (0.0-0.8); MONO % 13.7 % (0.0-10.0); NEUT # 6.7 K/uL (1.8-7.0); NEUT % 68.6 % (50.0-75.0); RBC 4.2 Mil/uL (4.40-5.90); RED CELL DISTRIBUTION WIDTH 14.2 % (11.5-14.5); WHITE BLOOD COUNT 9.8 K/uL (4.8-10.8)
--- NOTE | 2018-04-05 06:59 | CP.PCM.PN ---
<Cassandra Johnson - Last Filed: 04/05/18 13:19> Subjective - Date & Time of Evaluation Date of Evaluation: 04/05/18 Time of Evaluation: 06:57 - Subjective Subjective: PGY-1 Cassandra Johnson D.O. Medicine progress note for Dr. Simpson's service: Patient was seen and examined this morning. No acute events reported overnight. Patient reports mild discomfort and tenderness in area of CHRISTOPHE drain insertion but denies erythema or drainage from area. He reports having no bowel movements since his surgery but says that he is passing gas. He is ambualting and using the incentive spirometer. Patient denies chest pain, palpitations, SOB, dysuria, hematuria, nausea/vomiting. Objective - Vital Signs/Intake and Output Vital Signs (last 24 hours): Temp Pulse Resp BP Pulse Ox 98.5 F 78 20 117/73 95 04/05/18 05:24 04/05/18 05:24 04/05/18 05:24 04/05/18 05:24 04/05/18 05:24 Intake and Output: 04/04/18 04/05/18 18:59 06:59 Intake Total 680 Output Total 50 50 Balance -50 630 - Medications Medications: Current Medications Acetaminophen (Tylenol 325mg Tab) 650 mg PO Q6 PRN PRN Reason: Fever >100.4 F Last Admin: 04/02/18 19:41 Dose: 650 mg Docusate Sodium (Colace) 100 mg PO BID [facility] Last Admin: 04/04/18 17:37 Dose: 100 mg Famotidine (Pepcid) 20 mg IVP DAILY [facility] Last Admin: 04/04/18 09:07 Dose: 20 mg Meropenem 1 gm/ Sodium (Chloride) 100 mls @ 100 mls/hr IVPB Q8H [facility]; Protocol Last Admin: 04/05/18 06:14 Dose: 100 mls/hr Metronidazole (Flagyl) 500 mg in 100 mls @ 100 mls/hr IVPB Q8H [facility]; Protocol Last Admin: 04/04/18 23:48 Dose: 100 mls/hr Oxycodone/Acetaminophen (Percocet 5/325 Mg Tab) 2 tab PO Q4H PRN PRN Reason: Pain, severe (8-10) Stop: 04/06/18 14:46 Last Admin: 04/04/18 20:55 Dose: 2 tab Oxycodone/Acetaminophen (Percocet 5/325 Mg Tab) 1 tab PO Q4H PRN PRN Reason: Pain, moderate (4-7) Stop: 04/07/18 07:01 Last Admin: 04/04/18 18:04 Dose: 1 tab - Labs Labs: 04/04/18 06:46 04/04/18 06:46 PT 14.6 SECONDS (9.7-12.2) H 04/03/18 11:34 INR 1.3 04/03/18 11:34 APTT 40 SECONDS (21-34) H 04/03/18 11:34 - Additional Findings Additional findings: - Constitutional Appears: Non-toxic, No Acute Distress - Head Exam Head Exam: ATRAUMATIC, NORMAL INSPECTION - Eye Exam Eye Exam: EOMI, Normal appearance - ENT Exam ENT Exam: Normal Exam - Neck Exam Neck Exam: Normal Inspection - Respiratory Exam Respiratory Exam: Clear to Ausculation Bilateral, NORMAL BREATHING PATTERN. absent: Rales, Rhonchi, Wheezes, Respiratory Distress - Cardiovascular Exam Cardiovascular Exam: RRR, +S1, +S2 - GI/Abdominal Exam GI & Abdominal Exam: Tenderness- mild over CHRISTOPHE insertion site, Soft. absent: Distended, Rebound CHRISTOPHE drain- serosanguinous drainage Bandages over incision sites No signs of bleeding or infection - Extremities Exam Extremities Exam: Normal Inspection. absent: Pedal Edema, Tenderness - Neurological Exam Neurological Exam: Alert, Awake, CN II-XII Intact, Oriented x3 - Psychiatric Exam Psychiatric exam: Normal Affect, Normal Mood - Skin Skin Exam: Dry, Normal Color, Warm Assessment and Plan - Assessment and Plan (Free Text) Assessment: Patient is a 47 yo male with history of recurrent UTIs and back pain/spasms who presented with fevers/chills and diarrhea. Found to be septic and have E. coli bacteremia. Additional imaging demonstrated cholecystitis with choledococolithiasis. Patient is POD2 lap stevo. Plan for CHRISTOPHE drain to be removed today. Continuing IV antibiotics until afebrile >48 hrs, Bcx from 04/05 no growth >72 hrs. Plan: Sepsis- E. coli bacteremia - Tmax 100.6 (04/04 4AM) - Tachycardic, hypotensive on admission- resolved - Leukocytosis and bandemia resolved (WBC 23.4, bands 17 on admission) - LA 2.1-->1.5 - Procal 3.95-->2.68-->0.89-->0.48 - Flu negative - Blood Cx: E. coli- pansensitive - Repeat Blood Cx (04/02): no growth >48 hrs - f/u Post-op Blood Cx from 04/05 - Echo: normal EF, no vegetations, diastolic dysfunction - Discontinue IVF - Tylenol 650 mg PO Q6H PRN - Flagyl 500 mg IV Q8H- started 03/31 - Merrem 1 g IV Q8H- started 04/01 - Discontinue Gentamicin as per ID - Lactobacillus PO BID - ID consulted (Magdalene) Acute cholecystitis with Choledocolithiasis- POD 2 lap stevo with CHRISTOPHE drain - Elevated LFTs- resolved - Elevated ALP- stable - Tbili wnl - HIDA: The cystic duct is occluded, presumptive evidence for acute cholecystitis. - Surgery pathology: acute and chronic cholecystitis with patchy mucosal denudation, abscess formation, necrosis, and hemorrhage - Surgery consulted (Emmanuel)- lap stevo today afternoon 04/03 Hyponatremia- suspect SIADH 2/2 pain - Monitor BMP - Serum osm wnl - Urine osm and electrolytes pending Diarrhea, resolved - C. diff, stool leukocytes, stool Cx, O&P, Giardia negative - FOBT negative - Lactoferrin pending - UDS negative - TSH, free T4 wnl - Replete electrolytes PRN Transaminitis, resolved- 2/2 CBD obstruction - Abd US: Prominent liver. Increased echogenicity of the hepatic parenchymal cortex suggestive for fatty infiltration versus hepatic parenchymal disease. Monophasic flow was documented in the hepatic vein. This is of uncertain clinical etiology. Underlying thrombus in the hepatic vein cannot be excluded. Cholelithiasis. Normal gallbladder wall thickness of 2.4 millimeters. No gross wall edema. Negative sonographic Yi's sign. Pancreas not well visualized. - CTA A/P: No CTA evidence of portal or hepatic vein thrombosis. Foci of low attenuation in the right liver lobe adjacent to the gallbladder may represent benign renal cyst versus small abscesses secondary to cholecystitis. Clinical correlation is suggested. Diffuse gallbladder wall thickening surrounding with mild fat stranding and trace fluid. Correlate clinically for cholecystitis. - HIDA: The cystic duct is occluded, presumptive evidence for acute cholecystitis. - Hepatitis panel negative - HIV negative - Tbili wnl Muscle spasms (back), chronic - Tylenol 650 mg PO Q6H Ppx: VTE: SCDs, heparin 5000 units SC Q12H- held for surgery GI: Pepcid mg PO BID Code status: full code Case discussed with attending, Dr. Simpson. <Nayeli Simpson V - Last Filed: 04/06/18 00:05> Objective - Vital Signs/Intake and Output Vital Signs (last 24 hours): Temp Pulse Resp BP Pulse Ox 98.6 F 100 H 20 112/75 97 04/05/18 21:06 04/05/18 15:00 04/05/18 15:00 04/05/18 15:00 04/05/18 15:00 - Medications Medications: Current Medications Acetaminophen (Tylenol 325mg Tab) 650 mg PO Q6 PRN PRN Reason: Fever >100.4 F Last Admin: 04/02/18 19:41 Dose: 650 mg Benzocaine/Menthol (Cepacol Sore Throat) 1 kevin MT Q6 PRN PRN Reason: Sore Throat Last Admin: 04/05/18 11:02 Dose: 1 kevin Docusate Sodium (Colace) 100 mg PO BID [facility] Last Admin: 04/05/18 17:51 Dose: 100 mg Famotidine (Pepcid) 20 mg PO BID [facility] Last Admin: 04/05/18 17:50 Dose: 20 mg Meropenem 1 gm/ Sodium (Chloride) 100 mls @ 100 mls/hr IVPB Q8H [facility]; Protocol Last Admin: 04/05/18 22:07 Dose: 100 mls/hr Metronidazole (Flagyl) 500 mg in 100 mls @ 100 mls/hr IVPB Q8H [facility]; Protocol Last Admin: 04/05/18 23:49 Dose: 100 mls/hr Lactobacillus Acidophilus (Bacid Acidophilus) 1 cap PO BID [facility] Last Admin: 04/05/18 17:51 Dose: 1 cap Oxycodone/Acetaminophen (Percocet 5/325 Mg Tab) 2 tab PO Q4H PRN PRN Reason: Pain, severe (8-10) Stop: 04/06/18 14:46 Last Admin: 04/05/18 14:42 Dose: 2 tab Oxycodone/Acetaminophen (Percocet 5/325 Mg Tab) 1 tab PO Q4H PRN PRN Reason: Pain, moderate (4-7) Stop: 04/07/18 07:01 Last Admin: 04/04/18 18:04 Dose: 1 tab - Labs Labs: 04/05/18 06:51 04/05/18 06:51 PT 14.6 SECONDS (9.7-12.2) H 04/03/18 11:34 INR 1.3 04/03/18 11:34 APTT 40 SECONDS (21-34) H 04/03/18 11:34 Assessment and Plan (1) Sepsis Status: Acute (2) E coli bacteremia Status: Acute (3) Essential hypertension Status: Acute (4) Cholecystitis Status: Acute (5) Prophylactic measure Status: Acute Attending/Attestation - Attestation I have personally seen and examined this patient.: Yes I have fully participated in the care of the patient.: Yes I have reviewed all pertinent clinical information, including history, physical exam and plan: Yes Notes (Text): Patient seen, examined and case discussed with day-time resident. Patient is postoperative 2 from surgery. Patient reports pain localized to surgery site. CHRISTOPHE drain was removed by surgery later in the afternoon. Per their standpoint, stable for discharge. Indicated to surgery and nurse practitioner, ID has recommended for repeat blood cultures yesterday. Will continue IV abx per ID. and plan for possible discharge for Sunday. 1. Sepsis secondary to E. coli bacteremia and Acute Cholecystitis Assessment/Plan * Criteria: fever, Tachycardic, hypotensive on admission secondary to E.Coli bactermia * Meropenem 1gm IVPB Q8H (active since 03/31/18) * Flagyl 500mg IV Q8H (active since 04/03/18) * Procalcitonin: 3.95; 2.68, 0.89 * General surgery (Dr. Benitez) neonatal icu coordinator-->help appreciated * HIDA Scan: positive for occluded cystic duct * preop/intraop/postoperative management * Infectious Disease (Dr. Del Castillo) neonatal icu coordinator-->help appreciated * Blood culture (03/31/18): E. Coli X2 * Blood culture (04/02/17): no growth * Blood culture (04/04/18): pending * Urine Culture (03/31/18): no growth * Stool culture (03/31/18): no salmonella, shigella, no camplobacter * Abd US: Prominent liver. Increased echogenicity of the hepatic parenchymal cortex suggestive for fatty infiltration versus hepatic parenchymal disease. Monophasic flow was documented in the hepatic vein. This is of uncertain clinical etiology. Underlying thrombus in the hepatic vein cannot be excluded. Cholelithiasis. Normal gallbladder wall thickness of 2.4 millimeters. No gross wall edema. Negative sonographic Yi's sign. 2. Acute on Chronic cholecystitis with Choledocolithiasis Assessment/Plan * Meropenem 1gm IVPB Q8H (active since 03/31/18) * Flagyl 500mg IV Q8H (active since 04/03/18) * Procalcitonin: 3.95; 2.68, 0.89 * General surgery (Dr. 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 Diarrhea (resolved) Assessment/Plan * C. diff, stool leukocytes, stool Cx, O&P, Giardia negative * FOBT negative * Lactoferrin pending 4. Transaminitis, resolved- 2/2 CBD obstruction Assessment/Plan * Abd US: Prominent liver. Increased echogenicity of the hepatic parenchymal cortex suggestive for fatty infiltration versus hepatic parenchymal disease. Monophasic flow was documented in the hepatic vein. This is of uncertain clinical etiology. Underlying thrombus in the hepatic vein cannot be excluded. Cholelithiasis. Normal gallbladder wall thickness of 2.4 millimeters. No gross wall edema. Negative sonographic Yi's sign. Pancreas not well visualized. * CTA A/P: No CTA evidence of portal or hepatic vein thrombosis. Foci of low attenuation in the right liver lobe adjacent to the gallbladder may represent benign renal cyst versus small abscesses secondary to cholecystitis. Clinical correlation is suggested. Diffuse gallbladder wall thickening surrounding with mild fat stranding and trace fluid. Correlate clinically for cholecystitis. * HIDA: The cystic duct is occluded, presumptive evidence for acute cholecystitis. * Hepatitis panel negative * HIV negative * Tbili wnl 5. Ppx: * Diet restarted * Pepcid 20mg Iv q daily * Heparin 5000 units subq8H Disposition: From surgery standpoint stable for d/c. Christophe drained removed. Pending ID clearance; patient has repeat cultures drawn 04/04/18; Patient is postoperative day 2.If repeat cultures negative 48-72 hours and patient remain w/o fever, will plan for d/c and f/u with ID regarding antibiotic of choice on discharge.
[2018-04-05 07:49] LABS: ALT/SGPT 55 U/L (21-72); AST/SGOT 63 U/L (17-59); BLOOD UREA NITROGEN 7 mg/dL (9-20); GFR NON-AFRICAN AMERICAN > 60
[2018-04-05] MEDS: metroNIDAZOLE IV 500 mg/100 ml 500 MG/100 ML BAG IVPB SCH ×3 (08:53→23:49)
[2018-04-05] MEDS: Benzocaine/Menthol (Cepacol) Lozenge MT PRN (11:02)
--- NOTE | 2018-04-05 14:33 | CP.PCM.PN ---
Subjective - Date & Time of Evaluation Date of Evaluation: 04/05/18 Time of Evaluation: 13:35 - Subjective Subjective: dictated Objective - Vital Signs/Intake and Output Vital Signs (last 24 hours): Temp Pulse Resp BP Pulse Ox 98.6 F 97 H 20 108/71 94 L 04/05/18 07:00 04/05/18 07:00 04/05/18 07:00 04/05/18 07:00 04/05/18 07:00 Intake and Output: 04/05/18 04/05/18 06:59 18:59 Intake Total 680 Output Total 50 Balance 630 - Medications Medications: Current Medications Acetaminophen (Tylenol 325mg Tab) 650 mg PO Q6 PRN PRN Reason: Fever >100.4 F Last Admin: 04/02/18 19:41 Dose: 650 mg Benzocaine/Menthol (Cepacol Sore Throat) 1 kevin MT Q6 PRN PRN Reason: Sore Throat Last Admin: 04/05/18 11:02 Dose: 1 kevin Docusate Sodium (Colace) 100 mg PO BID [facility] Last Admin: 04/05/18 11:02 Dose: 100 mg Famotidine (Pepcid) 20 mg PO BID [facility] Meropenem 1 gm/ Sodium (Chloride) 100 mls @ 100 mls/hr IVPB Q8H [facility]; Protocol Last Admin: 04/05/18 06:14 Dose: 100 mls/hr Metronidazole (Flagyl) 500 mg in 100 mls @ 100 mls/hr IVPB Q8H [facility]; Protocol Last Admin: 04/05/18 08:53 Dose: 100 mls/hr Lactobacillus Acidophilus (Bacid Acidophilus) 1 cap PO BID [facility] Oxycodone/Acetaminophen (Percocet 5/325 Mg Tab) 2 tab PO Q4H PRN PRN Reason: Pain, severe (8-10) Stop: 04/06/18 14:46 Last Admin: 04/04/18 20:55 Dose: 2 tab Oxycodone/Acetaminophen (Percocet 5/325 Mg Tab) 1 tab PO Q4H PRN PRN Reason: Pain, moderate (4-7) Stop: 04/07/18 07:01 Last Admin: 04/04/18 18:04 Dose: 1 tab - Labs Labs: 04/05/18 06:51 04/05/18 06:51 PT 14.6 SECONDS (9.7-12.2) H 04/03/18 11:34 INR 1.3 04/03/18 11:34 APTT 40 SECONDS (21-34) H 04/03/18 11:34
[2018-04-05] MEDS: Oxycodone/Acetaminophen 5/325 mg Tab PO PRN (14:42)
[2018-04-05] MEDS: Lactobacillus Acidophilus 500 MU Cap PO SCH (17:51)
--- NOTE | 2018-04-06 00:26 | CP.PCM.PN ---
<Elver Rivera - Last Filed: 04/06/18 12:10> Subjective - Date & Time of Evaluation Date of Evaluation: 04/06/18 Time of Evaluation: 00:14 - Subjective Subjective: HOSPITALIST SERVICE Pt seen and examined at bedside. denies cp sob fc nv. complains of mild soreness aat NESTOR drain, Objective - Vital Signs/Intake and Output Vital Signs (last 24 hours): Temp Pulse Resp BP Pulse Ox 98.6 F 100 H 20 112/75 97 04/05/18 21:06 04/05/18 15:00 04/05/18 15:00 04/05/18 15:00 04/05/18 15:00 - Medications Medications: Current Medications Acetaminophen (Tylenol 325mg Tab) 650 mg PO Q6 PRN PRN Reason: Fever >100.4 F Last Admin: 04/02/18 19:41 Dose: 650 mg Benzocaine/Menthol (Cepacol Sore Throat) 1 kevin MT Q6 PRN PRN Reason: Sore Throat Last Admin: 04/05/18 11:02 Dose: 1 kevin Docusate Sodium (Colace) 100 mg PO BID [facility] Last Admin: 04/05/18 17:51 Dose: 100 mg Famotidine (Pepcid) 20 mg PO BID [facility] Last Admin: 04/05/18 17:50 Dose: 20 mg Heparin Sodium (Porcine) (Heparin) 5,000 units SC Q8 [facility] Meropenem 1 gm/ Sodium (Chloride) 100 mls @ 100 mls/hr IVPB Q8H [facility]; Protocol Last Admin: 04/05/18 22:07 Dose: 100 mls/hr Metronidazole (Flagyl) 500 mg in 100 mls @ 100 mls/hr IVPB Q8H [facility]; Protocol Last Admin: 04/05/18 23:49 Dose: 100 mls/hr Lactobacillus Acidophilus (Bacid Acidophilus) 1 cap PO BID [facility] Last Admin: 04/05/18 17:51 Dose: 1 cap Oxycodone/Acetaminophen (Percocet 5/325 Mg Tab) 2 tab PO Q4H PRN PRN Reason: Pain, severe (8-10) Stop: 04/06/18 14:46 Last Admin: 04/05/18 14:42 Dose: 2 tab Oxycodone/Acetaminophen (Percocet 5/325 Mg Tab) 1 tab PO Q4H PRN PRN Reason: Pain, moderate (4-7) Stop: 04/07/18 07:01 Last Admin: 04/04/18 18:04 Dose: 1 tab - Labs Labs: 04/05/18 06:51 04/05/18 06:51 PT 14.6 SECONDS (9.7-12.2) H 04/03/18 11:34 INR 1.3 04/03/18 11:34 APTT 40 SECONDS (21-34) H 04/03/18 11:34 - Additional Findings Additional findings: - Constitutional Appears: Non-toxic, No Acute Distress - Head Exam Head Exam: ATRAUMATIC, NORMAL INSPECTION - Eye Exam Eye Exam: EOMI, Normal appearance - ENT Exam ENT Exam: Normal Exam - Neck Exam Neck Exam: Normal Inspection - Respiratory Exam Respiratory Exam: Clear to Ausculation Bilateral, NORMAL BREATHING PATTERN. absent: Rales, Rhonchi, Wheezes, Respiratory Distress - Cardiovascular Exam Cardiovascular Exam: RRR, +S1, +S2 - GI/Abdominal Exam GI & Abdominal Exam: Tenderness- mild over NESTOR insertion site, Soft. absent: Distended, Rebound NESTOR drain- serosanguinous drainage Bandages over incision sites No signs of bleeding or infection - Extremities Exam Extremities Exam: Normal Inspection. absent: Pedal Edema, Tenderness - Neurological Exam Neurological Exam: Alert, Awake, CN II-XII Intact, Oriented x3 - Psychiatric Exam Psychiatric exam: Normal Affect, Normal Mood - Skin Skin Exam: Dry, Normal Color, Warm Assessment and Plan - Assessment and Plan (Free Text) Assessment: Patient is a 47 yo male with history of recurrent UTIs and back pain/spasms who presented with fevers/chills and diarrhea. Found to be septic and have E. coli bacteremia. Additional imaging demonstrated cholecystitis with choledococolithiasis. Patient is POD#3 lap stevo. Continuing IV antibiotics until afebrile >48 hrs, Bcx from 04/05 no growth >72 hrs. Plan: Sepsis- E. coli bacteremia - Tmax 100.6 (04/04 4AM) - Tachycardic, hypotensive on admission- resolved - Leukocytosis and bandemia resolved (WBC 23.4, bands 17 on admission) - LA 2.1-->1.5 - Procal 3.95-->2.68-->0.89-->0.48 - Flu negative - Blood Cx: E. coli- pansensitive - Repeat Blood Cx (04/02): no growth >48 hrs - f/u Post-op Blood Cx from 04/05 - Echo: normal EF, no vegetations, diastolic dysfunction - Discontinue IVF - Tylenol 650 mg PO Q6H PRN - Flagyl 500 mg IV Q8H- started 03/31 - Merrem 1 g IV Q8H- started 04/01 - Discontinue Gentamicin as per ID - Lactobacillus PO BID - ID consulted (Magdalene) recs appreciated f/u recs for abx course and possible d/c recs Acute cholecystitis with Choledocolithiasis- POD# 3lap stevo with NESTOR drain - Elevated LFTs- resolved - Elevated ALP- stable, slight uptrending today 04/06/18 - Tbili wnl - HIDA: The cystic duct is occluded, presumptive evidence for acute cholecysti tis. - Surgery pathology: acute and chronic cholecystitis with patchy mucosal denudation, abscess formation, necrosis, and hemorrhage - Surgery consulted (Emmanuel)- lap stevo 04/03 Hyponatremia- suspect SIADH 2/2 pain - Monitor BMP - Serum osm wnl - Urine osm and electrolytes received: WNL Diarrhea, resolved - C. diff, stool leukocytes, stool Cx, O&P, Giardia negative - FOBT negative - Lactoferrin pending - UDS negative - TSH, free T4 wnl - Replete electrolytes PRN Transaminitis, resolved- 2/2 CBD obstruction - Abd US: Prominent liver. Increased echogenicity of the hepatic parenchymal cortex suggestive for fatty infiltration versus hepatic parenchymal disease. Monophasic flow was documented in the hepatic vein. This is of uncertain clinical etiology. Underlying thrombus in the hepatic vein cannot be excluded. Cholelithiasis. Normal gallbladder wall thickness of 2.4 millimeters. No gross wall edema. Negative sonographic Yi's sign. Pancreas not well visualized. - CTA A/P: No CTA evidence of portal or hepatic vein thrombosis. Foci of low attenuation in the right liver lobe adjacent to the gallbladder may represent benign renal cyst versus small abscesses secondary to cholecystitis. Clinical correlation is suggested. Diffuse gallbladder wall thickening surrounding with mild fat stranding and trace fluid. Correlate clinically for cholecystitis. - HIDA: The cystic duct is occluded, presumptive evidence for acute cholecystitis. - Hepatitis panel negative - HIV negative - Tbili wnl Muscle spasms (back), chronic - Tylenol 650 mg PO Q6H Ppx: VTE: SCDs, heparin 5000 units SC Q12H GI: Pepcid mg PO BID Code status: full code <Nayeli Simpson V - Last Filed: 04/07/18 16:23> Objective - Vital Signs/Intake and Output Vital Signs (last 24 hours): Temp Pulse Resp BP Pulse Ox 98.3 F 89 18 99/66 L 96 04/07/18 07:00 04/07/18 07:00 04/07/18 07:00 04/07/18 07:00 04/07/18 07:00 Intake and Output: 04/07/18 04/07/18 06:59 18:59 Intake Total 700 Balance 700 - Medications Medications: Current Medications Acetaminophen (Tylenol 325mg Tab) 650 mg PO Q6 PRN PRN Reason: Fever >100.4 F Last Admin: 04/06/18 10:41 Dose: 650 mg Benzocaine/Menthol (Cepacol Sore Throat) 1 kevin MT Q6 PRN PRN Reason: Sore Throat Last Admin: 04/07/18 08:04 Dose: 1 kevin Docusate Sodium (Colace) 100 mg PO BID [facility] Last Admin: 04/07/18 09:56 Dose: 100 mg Famotidine (Pepcid) 20 mg PO BID [facility] Last Admin: 04/07/18 09:56 Dose: 20 mg Heparin Sodium (Porcine) (Heparin) 5,000 units SC Q8 [facility] Last Admin: 04/07/18 14:41 Dose: 5,000 units Metronidazole (Flagyl) 500 mg in 100 mls @ 100 mls/hr IVPB Q8H [facility]; Protocol Last Admin: 04/07/18 08:00 Dose: 100 mls/hr Ciprofloxacin (Cipro 400mg/200ml Dsw) 400 mg in 200 mls @ 133 mls/hr IVPB Q12H [facility]; Protocol Last Admin: 04/07/18 04:39 Dose: 133 mls/hr Lactobacillus Acidophilus (Bacid Acidophilus) 1 cap PO BID [facility] Last Admin: 04/07/18 09:56 Dose: 1 cap - Labs Labs: 04/07/18 08:10 04/07/18 08:10 PT 14.6 SECONDS (9.7-12.2) H 04/03/18 11:34 INR 1.3 04/03/18 11:34 APTT 40 SECONDS (21-34) H 04/03/18 11:34 Assessment and Plan (1) Sepsis Status: Acute (2) E coli bacteremia Status: Acute (3) Essential hypertension Status: Acute (4) Cholecystitis Status: Acute (5) Prophylactic measure Status: Acute Attending/Attestation - Attestation I have personally seen and examined this patient.: Yes I have fully participated in the care of the patient.: Yes I have reviewed all pertinent clinical information, including history, physical exam and plan: Yes
--- NOTE | 2018-04-06 01:53 | PN ---
DATE: 04/05/2018 SUBJECTIVE: The patient had surgery yesterday for the gallbladder, and today the drain was removed. He was still in pain but he looks better. He has not been having fevers. Last fever was 100.6 prior to surgery. He did say that he used to have pain in the back and he would use heating pad, it was mostly on the right side, and it looks that he has been suffering from this for a long time, blood was positive at this time. PHYSICAL EXAMINATION: VITAL SIGNS: Temperature is 99.1, heart rate of 100, blood pressure 112/75, respirations are 20, stable. GENERAL: He is awake, alert. He has no nausea, no vomiting. He is passing gas from below. LUNGS: Clear. HEART: S1, S2, and is tachy. ABDOMEN: Soft, nontender. He had a soft BM also. LABORATORY DATA: White count is 9.8, hemoglobin 11.9, hematocrit 34.6, platelet count is 237. Sodium is 129, potassium 3.6, chloride 94, CO2 is 31, and random is 115. PLAN: We have ordered blood cultures as he has E. coli in the blood. We had given him Rocephin but E. coli is Cipro sensitive. If he remains stable, we will switch to Cipro IV tomorrow, but for now, he will be on Merrem and we can discontinue the Flagyl. He is asked to continue incentive spirometry, and we will follow. Jeanette Del Castillo MD
[2018-04-06] MEDS: Meropenem 1 GM in Sodium Chloride 0.9% 100 ML IVPB SCH ×2 (06:10→14:03)
[2018-04-06 07:25] LABS: BASO % 0.3 % (0.0-2.0); EOS # 0.2 K/uL (0.0-0.7); HEMOGLOBIN 11.7 g/dL (12.0-18.0); LYMPH # 1.1 K/uL (1.0-4.3); LYMPH % 11.6 % (20.0-40.0); MEAN CELL VOLUME 83.6 fL (80.0-94.0); MEAN CORPUSCULAR HEMOGLOBIN 29.1 pg (27.0-31.0); MEAN CORPUSCULAR HGB CONC 34.8 g/dL (33.0-37.0); MEAN PLATELET VOLUME 7.6 fL (7.2-11.7); MONO # 1.1 K/uL (0.0-0.8); MONO % 11.6 % (0.0-10.0); NEUT # 7.4 K/uL (1.8-7.0); NEUT % 74.5 % (50.0-75.0); RBC 4.01 Mil/uL (4.40-5.90); RED CELL DISTRIBUTION WIDTH 13.8 % (11.5-14.5); WHITE BLOOD COUNT 9.9 K/uL (4.8-10.8)
[2018-04-06 07:36] LABS: ALT/SGPT 50 U/L (21-72); AST/SGOT 44 U/L (17-59); BLOOD UREA NITROGEN 13 mg/dL (9-20); GFR NON-AFRICAN AMERICAN > 60
[2018-04-06] MEDS: metroNIDAZOLE IV 500 mg/100 ml 500 MG/100 ML BAG IVPB SCH ×2 (07:57→16:58)
[2018-04-06] MEDS: Lactobacillus Acidophilus 500 MU Cap PO SCH ×2 (10:39→17:06)
[2018-04-06] MEDS: Benzocaine/Menthol (Cepacol) Lozenge MT PRN (10:41)
--- NOTE | 2018-04-06 15:37 | CP.PCM.PN ---
Subjective - Date & Time of Evaluation Date of Evaluation: 04/06/18 Time of Evaluation: 14:40 - Subjective Subjective: dictated Objective - Vital Signs/Intake and Output Vital Signs (last 24 hours): Temp Pulse Resp BP Pulse Ox 98 F 126 H 20 118/77 95 04/06/18 07:00 04/06/18 13:15 04/06/18 07:00 04/06/18 13:15 04/06/18 07:00 - Medications Medications: Current Medications Acetaminophen (Tylenol 325mg Tab) 650 mg PO Q6 PRN PRN Reason: Fever >100.4 F Last Admin: 04/06/18 10:41 Dose: 650 mg Benzocaine/Menthol (Cepacol Sore Throat) 1 kevin MT Q6 PRN PRN Reason: Sore Throat Last Admin: 04/06/18 10:41 Dose: 1 kevin Docusate Sodium (Colace) 100 mg PO BID [facility] Last Admin: 04/06/18 10:39 Dose: 100 mg Famotidine (Pepcid) 20 mg PO BID [facility] Last Admin: 04/06/18 10:39 Dose: 20 mg Heparin Sodium (Porcine) (Heparin) 5,000 units SC Q8 [facility] Last Admin: 04/06/18 13:57 Dose: 5,000 units Meropenem 1 gm/ Sodium (Chloride) 100 mls @ 100 mls/hr IVPB Q8H [facility]; Protocol Last Admin: 04/06/18 14:03 Dose: 100 mls/hr Metronidazole (Flagyl) 500 mg in 100 mls @ 100 mls/hr IVPB Q8H [facility]; Protocol Last Admin: 04/06/18 07:57 Dose: 100 mls/hr Lactobacillus Acidophilus (Bacid Acidophilus) 1 cap PO BID [facility] Last Admin: 04/06/18 10:39 Dose: 1 cap Oxycodone/Acetaminophen (Percocet 5/325 Mg Tab) 1 tab PO Q4H PRN PRN Reason: Pain, moderate (4-7) Stop: 04/07/18 07:01 Last Admin: 04/04/18 18:04 Dose: 1 tab - Labs Labs: 04/06/18 07:02 04/06/18 07:02 PT 14.6 SECONDS (9.7-12.2) H 04/03/18 11:34 INR 1.3 04/03/18 11:34 APTT 40 SECONDS (21-34) H 04/03/18 11:34
[2018-04-06] MEDS: Ciprofloxacin 400mg/200ml D5W 400 MG/200 ML BAG IVPB SCH (16:58)
[2018-04-06] MEDS: Oxycodone/Acetaminophen 5/325 mg Tab PO PRN ×2 (16:59→21:10)
--- NOTE | 2018-04-06 19:07 | PN ---
DATE: 04/06/2018 SUBJECTIVE: The patient had surgery, he is feeling a lot better. He says there is some pain. He is not having any more diarrhea and he says the stool is solid now. PHYSICAL EXAMINATION: GENERAL: He is sitting up in the chair. VITAL SIGNS: T-max is 99.7, heart rate just increased to 126, blood pressure is 118/77, respirations are 20. HEENT: Head is atraumatic, normocephalic. NECK: Supple. LUNGS: Clear. No crackles or rales present. HEART: S1 and S2, is tachycardic. ABDOMEN: Remains with Steri-Strips and also has some caitlyn in the umbilical area. Bowel sounds are present. Mild postop tenderness present. EXTREMITIES: Have no edema, clubbing or cyanosis. LABORATORY DATA: Labs are noted. Labs show white count is 9.9, hemoglobin 11.7, hematocrit 33.5, platelet count is 356 and sodium is low at 131, but he has had this before too. Chlorides are also low at 94, CO2 is 32. His alkaline phosphatase still remains high at 266 and protein of 5.9. ASSESSMENT AND PLAN: He is being followed by the surgeon also and at this time he is on Maxipime, Merrem and Flagyl at this time. We will discontinue Merrem and put him on Cipro and as it is sensitive to Cipro and the last blood cultures are negative. I will see on Sunday if he is stable enough to be switched over to p.o. Cipro as he will need it for 2 weeks or more. His CAT also needs to be reviewed again and we will follow and I would put him Cipro at this time and discontinue meropenem. Jeanette Del Castillo MD
--- NOTE | 2018-04-07 00:17 | CP.PCM.PN ---
Subjective - Date & Time of Evaluation Date of Evaluation: 04/07/18 Time of Evaluation: 00:06 - Subjective Subjective: HOSPITALIST SERVICE Pt s/e at bedside, denies any acute events overnight. denies any persitent drainage from former site of NESTOR drain. Denies CP SOB FC NV Objective - Vital Signs/Intake and Output Vital Signs (last 24 hours): Temp Pulse Resp BP Pulse Ox 97.2 F L 110 H 20 111/78 96 04/06/18 16:00 04/06/18 16:00 04/06/18 16:00 04/06/18 16:00 04/06/18 16:00 Intake and Output: 04/06/18 04/07/18 18:59 06:59 Intake Total 700 Balance 700 - Medications Medications: Current Medications Acetaminophen (Tylenol 325mg Tab) 650 mg PO Q6 PRN PRN Reason: Fever >100.4 F Last Admin: 04/06/18 10:41 Dose: 650 mg Benzocaine/Menthol (Cepacol Sore Throat) 1 kevin MT Q6 PRN PRN Reason: Sore Throat Last Admin: 04/06/18 10:41 Dose: 1 kevin Docusate Sodium (Colace) 100 mg PO BID [facility] Last Admin: 04/06/18 17:06 Dose: 100 mg Famotidine (Pepcid) 20 mg PO BID [facility] Last Admin: 04/06/18 17:06 Dose: 20 mg Heparin Sodium (Porcine) (Heparin) 5,000 units SC Q8 [facility] Last Admin: 04/06/18 21:08 Dose: 5,000 units Metronidazole (Flagyl) 500 mg in 100 mls @ 100 mls/hr IVPB Q8H [facility]; Protocol Last Admin: 04/06/18 16:58 Dose: 100 mls/hr Ciprofloxacin (Cipro 400mg/200ml Dsw) 400 mg in 200 mls @ 133 mls/hr IVPB Q12H [facility]; Protocol Last Admin: 04/06/18 16:58 Dose: 133 mls/hr Lactobacillus Acidophilus (Bacid Acidophilus) 1 cap PO BID [facility] Last Admin: 04/06/18 17:06 Dose: 1 cap Oxycodone/Acetaminophen (Percocet 5/325 Mg Tab) 1 tab PO Q4H PRN PRN Reason: Pain, moderate (4-7) Stop: 04/07/18 07:01 Last Admin: 04/06/18 21:10 Dose: 1 tab - Labs Labs: 04/06/18 07:02 04/06/18 07:02 PT 14.6 SECONDS (9.7-12.2) H 04/03/18 11:34 INR 1.3 04/03/18 11:34 APTT 40 SECONDS (21-34) H 04/03/18 11:34 - Additional Findings Additional findings: - Constitutional Appears: Non-toxic, No Acute Distress - Head Exam Head Exam: ATRAUMATIC, NORMAL INSPECTION - Eye Exam Eye Exam: EOMI, Normal appearance - ENT Exam ENT Exam: Normal Exam - Neck Exam Neck Exam: Normal Inspection - Respiratory Exam Respiratory Exam: Clear to Ausculation Bilateral, NORMAL BREATHING PATTERN. absent: Rales, Rhonchi, Wheezes, Respiratory Distress - Cardiovascular Exam Cardiovascular Exam: RRR, +S1, +S2 - GI/Abdominal Exam GI & Abdominal Exam: Tenderness- mild over NESTOR insertion site, Soft. absent: Distended, Rebound NESTOR drain removed, site clean Bandages over incision sites No signs of bleeding or infection signs - Extremities Exam Extremities Exam: Normal Inspection. absent: Pedal Edema, Tenderness - Neurological Exam Neurological Exam: Alert, Awake, CN II-XII Intact, Oriented x3 - Psychiatric Exam Psychiatric exam: Normal Affect, Normal Mood - Skin Skin Exam: Dry, Normal Color, Warm Assessment and Plan - Assessment and Plan (Free Text) Assessment: Assessment and Plan - Assessment and Plan (Free Text) Assessment: Patient is a 47 yo male with history of recurrent UTIs and back pain/spasms who presented with fevers/chills and diarrhea. Found to be septic and have E. coli bacteremia. Additional imaging demonstrated cholecystitis with choledococolit hiasis. Patient is POD#4 lap stevo. Continuing IV antibiotics until afebrile >48 hrs, Bcx from 04/05 no growth >72 hrs. Plan: Sepsis- E. coli bacteremia - Tmax 100.6 (04/04 4AM) - Tachycardic, hypotensive on admission- resolved - Leukocytosis and bandemia resolved (WBC 23.4, bands 17 on admission) - LA 2.1-->1.5 - Procal 3.95-->2.68-->0.89-->0.48 - Flu negative - Blood Cx: E. coli- pansensitive - Repeat Blood Cx (04/02): no growth >48 hrs - f/u Post-op Blood Cx from 04/05 - Echo: normal EF, no vegetations, diastolic dysfunction - Discontinue IVF - Tylenol 650 mg PO Q6H PRN - Flagyl 500 mg IV Q8H- started 03/31 - Merrem 1 g IV Q8H- started 04/01 - Discontinue Gentamicin as per ID - Lactobacillus PO BID - ID consulted (Magdalene) recs appreciated f/u recs for abx course and possible d/c recs Acute cholecystitis with Choledocolithiasis- POD# 4 lap stevo with NESTOR drain removed - Elevated LFTs- resolved - Elevated ALP- stable, slight uptrending today 04/06/18 - Tbili wnl - HIDA: The cystic duct is occluded, presumptive evidence for acute cholecystitis. - Surgery pathology: acute and chronic cholecystitis with patchy mucosal denudation, abscess formation, necrosis, and hemorrhage - Surgery consulted (Emmanuel)- lap stevo 04/03 Hyponatremia- suspect SIADH 2/2 pain - Monitor BMP - Serum osm wnl - Urine osm and electrolytes received: WNL Diarrhea, resolved - C. diff, stool leukocytes, stool Cx, O&P, Giardia negative - FOBT negative - Lactoferrin pending - UDS negative - TSH, free T4 wnl - Replete electrolytes PRN Transaminitis, resolved- 2/2 CBD obstruction - Abd US: Prominent liver. Increased echogenicity of the hepatic parenchymal co rtex suggestive for fatty infiltration versus hepatic parenchymal disease. Monophasic flow was documented in the hepatic vein. This is of uncertain clinical etiology. Underlying thrombus in the hepatic vein cannot be excluded. Cholelithiasis. Normal gallbladder wall thickness of 2.4 millimeters. No gross wall edema. Negative sonographic Yi's sign. Pancreas not well visualized. - CTA A/P: No CTA evidence of portal or hepatic vein thrombosis. Foci of low attenuation in the right liver lobe adjacent to the gallbladder may represent benign renal cyst versus small abscesses secondary to cholecystitis. Clinical correlation is suggested. Diffuse gallbladder wall thickening surrounding with mild fat stranding and trace fluid. Correlate clinically for cholecystitis. - HIDA: The cystic duct is occluded, presumptive evidence for acute cholecystitis. - Hepatitis panel negative - HIV negative - Tbili wnl Muscle spasms (back), chronic - Tylenol 650 mg PO Q6H Ppx: VTE: SCDs, heparin 5000 units SC Q12H GI: Pepcid mg PO BID Code status: full code
[2018-04-07] MEDS: metroNIDAZOLE IV 500 mg/100 ml 500 MG/100 ML BAG IVPB SCH ×4 (00:20→23:39)
[2018-04-07] MEDS: Benzocaine/Menthol (Cepacol) Lozenge MT PRN ×3 (01:46→17:22)
[2018-04-07] MEDS: Ciprofloxacin 400mg/200ml D5W 400 MG/200 ML BAG IVPB SCH ×2 (04:39→16:47)
[2018-04-07 08:32] LABS: BASO % 0.4 % (0.0-2.0); EOS # 0.2 K/uL (0.0-0.7); EOS % 1.5 % (0.0-4.0); HEMOGLOBIN 11.6 g/dL (12.0-18.0); LYMPH # 1.7 K/uL (1.0-4.3); LYMPH % 15.6 % (20.0-40.0); MEAN CELL VOLUME 83.4 fL (80.0-94.0); MEAN CORPUSCULAR HEMOGLOBIN 28.8 pg (27.0-31.0); MEAN CORPUSCULAR HGB CONC 34.5 g/dL (33.0-37.0); MEAN PLATELET VOLUME 7.3 fL (7.2-11.7); MONO # 1.2 K/uL (0.0-0.8); MONO % 10.7 % (0.0-10.0); NEUT # 7.9 K/uL (1.8-7.0); NEUT % 71.8 % (50.0-75.0); RBC 4.03 Mil/uL (4.40-5.90); RED CELL DISTRIBUTION WIDTH 14.2 % (11.5-14.5)
[2018-04-07 08:47] LABS: ALBUMIN 3.3 g/dL (3.5-5.0); ALT/SGPT 58 U/L (21-72); AST/SGOT 54 U/L (17-59); BLOOD UREA NITROGEN 10 mg/dL (9-20); CALCIUM 8.3 mg/dl (8.6-10.4); GFR NON-AFRICAN AMERICAN > 60
[2018-04-07] MEDS: Lactobacillus Acidophilus 500 MU Cap PO SCH ×2 (09:56→17:22)
[2018-04-08] MEDS: Ciprofloxacin 400mg/200ml D5W 400 MG/200 ML BAG IVPB SCH (04:22)
[2018-04-08 07:43] LABS: BASO # 0.1 K/uL (0.0-0.2); BASO % 0.6 % (0.0-2.0); EOS # 0.3 K/uL (0.0-0.7); EOS % 2.4 % (0.0-4.0); HEMOGLOBIN 11.3 g/dL (12.0-18.0); LYMPH # 1.6 K/uL (1.0-4.3); LYMPH % 14.6 % (20.0-40.0); MEAN CELL VOLUME 82.9 fL (80.0-94.0); MEAN CORPUSCULAR HEMOGLOBIN 28.1 pg (27.0-31.0); MEAN CORPUSCULAR HGB CONC 33.9 g/dL (33.0-37.0); MEAN PLATELET VOLUME 7.1 fL (7.2-11.7); MONO % 8.6 % (0.0-10.0); NEUT # 8.2 K/uL (1.8-7.0); NEUT % 73.8 % (50.0-75.0); RBC 4.03 Mil/uL (4.40-5.90); RED CELL DISTRIBUTION WIDTH 13.8 % (11.5-14.5); WHITE BLOOD COUNT 11.2 K/uL (4.8-10.8)
[2018-04-08] MEDS: metroNIDAZOLE IV 500 mg/100 ml 500 MG/100 ML BAG IVPB SCH (07:59)
[2018-04-08 08:10] LABS: ALBUMIN 3.3 g/dL (3.5-5.0); ALT/SGPT 59 U/L (21-72); AST/SGOT 54 U/L (17-59); BLOOD UREA NITROGEN 14 mg/dL (9-20); CALCIUM 8.4 mg/dl (8.6-10.4); GFR NON-AFRICAN AMERICAN > 60
[2018-04-08 08:26] VITALS: BP 104/69; PULSE 87; RESP 18; TEMP 98.2; O2SAT 97
[2018-04-08] MEDS: Lactobacillus Acidophilus 500 MU Cap PO SCH (10:46)
--- NOTE | 2018-04-08 12:15 | CP.PCM.PN ---
Subjective - Date & Time of Evaluation Date of Evaluation: 04/08/18 Time of Evaluation: 11:45 - Subjective Subjective: Hospitalist Progress Note Patient was seen and examined at 11:45 AM 650 B 04/08/18 47 year old male who was admitted on 03/31/18 and treated for Acute Cholecystitis and Sepsis secondary to E.coli bacteremia Repeat blood culture is negative at 72 hours. He has had NO fevers since 04/04/18. Upon FULL ROS: NO chest pain NO SOB Dry cough NO abdominal pain NO n/v/d/c: moving his bowels normally NO dysphagia/odynophagia NO burning and pain with urination NO other complaints General: AAOx3, NAD HEENT: NCA, EOMI, PERRLA, NO pharyngeal erythema/exudate, NO thyromegaly, Nasal Turbinates are nonerythematous/nonedematous, NO lymphadenopathy Cardio: NS1 and NS2, NO M/R/G Resp: CTA B/L, NO M/R/G GI: BSx4, Soft, NT, ND, NO HSM, NO guarding/rebound tenderness, Sures intact at the trocar sites and no dehiscence noted Ext: NO edema, Pulses are strong and equal, Capillary Refill is 2 seconds, Normal color and temperature Neuro: CN II through XII are grossly intact Assessments: 1). Sepsis Secondary to E.coli Bacteremia: repeat blood cultures negative at 72 hours. Will need to continue Cipro and Flagyl for 7 more days as per my conversation with ID Dr. Del Castillo 2). Acute Cholecystitis with Cholelithiasis S/P Lap Cholecystectomy by Surgeon Dr. Benitez: will need to follow up with Dr. Benitez for trochar site staple removal 3). Hyponatremia: resolved 4). Diarrhea: resolved. Stool cultures negative 5). Transaminitis: resolved 6). Muscle Spasms: resolved Patient is stable for discharge: The following instructions were explained to patient and a copy will need to be provided to him upon discharge: 1). Please schedule follow up with [facility] locate at [address] [place] [address] in [place], [place] by calling [phone] for an appointment that should take place before the end of this week. The physician there will help you to coordinate your health care. 2). Please schedule follow up with Surgeon Dr. Andrzej Benitez by calling his office [phone] for an appointment to have your caitlyn removed before the end of this week. Dr. Benitez's office is located at [address] [place] [address] [place] [address]. 3). You must be on 7 days more of antibiotics (Ciprofloxacin and Metronidazole). You also need to be on a Probiotic called Lactobacillus to make sure the good bacteria in your colon come back. Please have the following prescriptions filled at your pharmacy on your way home from the hospital and use as directed: Ciprofloxacin 500 mg, 1 tablet by mouth 2x/day (8 AM and 8 PM), Dispense #14 Metronidazole 500 mg, 1 tablet by mouth 3x/day (8 AM, 2 PM, and 8 PM), Dispense #21 Lactobacillus, 1 tablet by mouth 2x/day (10 AM and 6 PM), Dispense #74 4). Please take care of yourself and be happy. Keegan Chan D.O. Objective - Vital Signs/Intake and Output Vital Signs (last 24 hours): Temp Pulse Resp BP Pulse Ox 98.2 F 87 18 104/69 97 04/08/18 08:00 04/08/18 08:00 04/08/18 08:00 04/08/18 08:00 04/08/18 08:00 Intake and Output: 04/08/18 04/08/18 06:59 18:59 Intake Total 780 Balance 780 - Medications Medications: Current Medications Acetaminophen (Tylenol 325mg Tab) 650 mg PO Q6 PRN PRN Reason: Fever >100.4 F Last Admin: 04/06/18 10:41 Dose: 650 mg Benzocaine/Menthol (Cepacol Sore Throat) 1 kevin MT Q6 PRN PRN Reason: Sore Throat Last Admin: 04/07/18 17:22 Dose: 1 kevin Docusate Sodium (Colace) 100 mg PO BID [facility] Last Admin: 04/08/18 10:46 Dose: 100 mg Famotidine (Pepcid) 20 mg PO BID [facility] Last Admin: 04/08/18 10:46 Dose: 20 mg Heparin Sodium (Porcine) (Heparin) 5,000 units SC Q8 [facility] Last Admin: 04/08/18 05:19 Dose: 5,000 units Metronidazole (Flagyl) 500 mg in 100 mls @ 100 mls/hr IVPB Q8H [facility]; Protocol Last Admin: 04/08/18 07:59 Dose: 100 mls/hr Ciprofloxacin (Cipro 400mg/200ml Dsw) 400 mg in 200 mls @ 133 mls/hr IVPB Q12H [facility]; Protocol Last Admin: 04/08/18 04:22 Dose: 133 mls/hr Lactobacillus Acidophilus (Bacid Acidophilus) 1 cap PO BID [facility] Last Admin: 04/08/18 10:46 Dose: 1 cap - Labs Labs: 04/08/18 07:29 04/08/18 07:29 PT 14.6 SECONDS (9.7-12.2) H 04/03/18 11:34 INR 1.3 04/03/18 11:34 APTT 40 SECONDS (21-34) H 04/03/18 11:34
--- NOTE | 2018-04-08 17:20 | CP.PCM.DIS ---
Provider - Provider Date of Admission: 03/31/18 11:34 Attending physician: Keegan Chan MD Consults: 03/31/18 09:29 Critical Care Consult Stat Comment: Consulting Provider: Mook Henderson Consulting Physician: Mook Henderson Reason for Consult: sepsis 03/31/18 21:33 Infectious Disease Consult Routine Comment: Consulting Provider: Jeanette Del Castillo Consulting Physician: Jeanette Del Castillo Reason for Consult: sepsis, diarrhea, hx of recurrent uti, bacteremia 04/02/18 16:37 General Surgery Consult Routine Comment: Consulting Provider: Andrzej Benitez Consulting Physician: Andrzej Benitez Reason for Consult: acute stevo, E coli bacteremia, sepsis Time Spent in preparation of Discharge (in minutes): 45 Hospital Course - Lab Results Lab Results: Micro Results 04/05/18 06:51 Blood Blood Culture - Preliminary NO GROWTH AFTER 3 DAYS 04/05/18 06:51 Blood Blood Culture - Preliminary NO GROWTH AFTER 3 DAYS 04/02/18 17:30 Blood-Venous Blood Culture - Final NO GROWTH AFTER 5 DAYS 04/02/18 17:30 Blood-Venous Gram Stain - Final TEST NOT PERFORMED 04/02/18 13:49 Blood-Venous Blood Culture - Final NO GROWTH AFTER 5 DAYS 04/02/18 13:49 Blood-Venous Gram Stain - Final TEST NOT PERFORMED 03/31/18 13:23 Stool Stool Culture - Final NO SALMONELLA, SHIGELLA OR CAMPYLOBACTER ISOLATED. 03/31/18 08:50 Blood Blood Culture - Final Escherichia Coli 03/31/18 08:50 Blood Gram Stain - Final 03/31/18 08:50 Blood Blood Culture - Final Escherichia Coli 03/31/18 08:50 Blood Gram Stain - Final 03/31/18 13:23 Stool Ova and Parasite Concentrate Exam - Final 03/31/18 07:23 Urine,Clean Catch Urine Culture - Final No Growth (<1,000 CFU/ML) Most Recent Lab Values WBC 11.2 K/uL (4.8-10.8) H 04/08/18 07:29 RBC 4.03 Mil/uL (4.40-5.90) L 04/08/18 07:29 Hgb 11.3 g/dL (12.0-18.0) L 04/08/18 07:29 Hct 33.5 % (35.0-51.0) L 04/08/18 07:29 MCV 82.9 fL (80.0-94.0) 04/08/18 07: MCH 28.1 pg (27.0-31.0) 04/08/18 07: MCHC 33.9 g/dL (33.0-37.0) 04/08/18 07: RDW 13.8 % (11.5-14.5) 04/08/18 07: Plt Count 633 K/uL (130-400) H D 04/08/18 07:29 MPV 7.1 fL (7.2-11.7) L 04/08/18 07: Neut % (Auto) 73.8 % (50.0-75.0) 04/08/18 07: Lymph % (Auto) 14.6 % (20.0-40.0) L 04/08/18 07: Gregg % (Auto) 8.6 % (0.0-10.0) 04/08/18 07: Eos % (Auto) 2.4 % (0.0-4.0) 04/08/18 07: Baso % (Auto) 0.6 % (0.0-2.0) 04/08/18 07: Neut # (Auto) 8.2 K/uL (1.8-7.0) H 04/08/18 07:29 Lymph # (Auto) 1.6 K/uL (1.0-4.3) 04/08/18 07:29 Gregg # (Auto) 1.0 K/uL (0.0-0.8) H 04/08/18 07:29 Eos # (Auto) 0.3 K/uL (0.0-0.7) 04/08/18 07:29 Baso # (Auto) 0.1 K/uL (0.0-0.2) 04/08/18 07:29 Neutrophils % (Manual) 91 % (50-75) H 04/01/18 07:18 Band Neutrophils % 1 % (0-2) 04/01/18 07:18 Lymphocytes % (Manual) 5 % (20-40) L 04/01/18 07:18 Monocytes % (Manual) 2 % (0-10) 04/01/18 07:18 Basophils % (Manual) 1 % (0-2) 04/01/18 07:18 Differential Comment 04/08/18 07:29 Toxic Granulation Present 03/31/18 07:42 Platelet Estimate Normal (NORMAL) 04/01/18 07:18 Large Platelets Present 04/01/18 07:18 Poikilocytosis (manual Slight 04/01/18 07:18 Anisocytosis (manual) Slight 03/31/18 07:42 PT 14.6 SECONDS (9.7-12.2) H 04/03/18 11:34 INR 1.3 04/03/18 11:34 APTT 40 SECONDS (21-34) H 04/03/18 11:34 pO2 25 mm/Hg (30-55) L 03/31/18 09:13 VBG pH 7.39 (7.32-7.43) 03/31/18 09:13 VBG pCO2 43 mmHg (40-60) 03/31/18 09:13 VBG HCO3 24.1 mmol/L 03/31/18 09:13 VBG Total CO2 27.3 mmol/L (22-28) 03/31/18 09:13 VBG O2 Sat (Calc) 51.8 % (40-65) 03/31/18 09:13 VBG Base Excess 0.8 mmol/L (0.0-2.0) 03/31/18 09:13 VBG Potassium 3.5 mmol/L (3.6-5.2) L 03/31/18 09:13 Sodium 140.0 mmol/l (132-148) 03/31/18 09:13 Chloride 110.0 mmol/L (98-107) H 03/31/18 09:13 Glucose 127 mg/dl (75-110) H 03/31/18 09:13 Lactate 1.5 mmol/L (0.7-2.1) 03/31/18 09:13 Sodium 133 mmol/L (132-148) 04/08/18 07:29 Potassium 4.0 mmol/L (3.6-5.2) 04/08/18 07:29 Chloride 99 mmol/L (98-107) 04/08/18 07:29 Carbon Dioxide 26 mmol/L (22-30) 04/08/18 07:29 Anion Gap 12 (10-20) 04/08/18 07:29 BUN 14 mg/dL (9-20) 04/08/18 07:29 Creatinine 0.6 mg/dL (0.8-1.5) L 04/08/18 07:29 Est GFR ( Amer) > 60 04/08/18 07:29 Est GFR (Non-Af Amer) > 60 04/08/18 07:29 Random Glucose 111 mg/dL (75-110) H 04/08/18 07:29 Serum Osmolality 277 mosm/kg (272-300) 04/05/18 10:06 Calcium 8.4 mg/dl (8.6-10.4) L 04/08/18 07:29 Phosphorus 3.3 mg/dL (2.5-4.5) 04/08/18 07:29 Magnesium 2.2 mg/dL (1.6-2.3) 04/08/18 07:29 Total Bilirubin 0.7 mg/dL (0.2-1.3) 04/08/18 07:29 AST 54 U/L (17-59) 04/08/18 07:29 ALT 59 U/L (21-72) 04/08/18 07:29 Alkaline Phosphatase 277 U/L (38-126) H 04/08/18 07:29 Total Protein 6.6 g/dL (6.3-8.3) 04/08/18 07:29 Albumin 3.3 g/dL (3.5-5.0) L 04/08/18 07:29 Globulin 3.3 gm/dL (2.2-3.9) 04/08/18 07:29 Albumin/Globulin Ratio 1.0 (1.0-2.1) 04/08/18 07:29 Amylase 91 U/L (30-110) 03/31/18 07:42 Lipase 102 U/L (23-300) 03/31/18 07:42 Procalcitonin 0.48 NG/ML (0.19-0.49) 04/05/18 06:51 Free T4 1.91 ng/dL (0.78-2.19) 03/31/18 13:37 TSH 3rd Generation 0.88 mIU/L (0.46-4.68) 03/31/18 13:37 Venous Blood Potassium 3.5 mmol/L (3.6-5.2) L 03/31/18 09:13 Urine Color Rand[place] (YELLOW) 03/31/18 07:57 Urine Clarity Hazy (Clear) 03/31/18 07:57 Urine pH 5.0 (5.0-8.0) 03/31/18 07:57 Ur Specific [place] 1.034 (1.003-1.030) H 03/31/18 07:57 Urine Protein 2+ mg/dL (NEGATIVE) H 03/31/18 07:57 Urine Glucose (UA) Normal mg/dL (Normal) 03/31/18 07:57 Urine Ketones Negative mg/dL (NEGATIVE) 03/31/18 07:57 Urine Blood 2+ (NEGATIVE) H 03/31/18 07:57 Urine Nitrate Negative (NEGATIVE) 03/31/18 07:57 Urine Bilirubin 1+ (NEGATIVE) H 03/31/18 07:57 Urine Urobilinogen 4.0 mg/dL (0.2-1.0) 03/31/18 07:57 Ur Leukocyte Esterase Neg Tessie/uL (Negative) 03/31/18 07:57 Urine WBC (Auto) 11 /hpf (0-5) H 03/31/18 07:57 Urine RBC (Auto) 17 /hpf (0-3) H 03/31/18 07:57 Ur Squamous Epith Cells < 1 /hpf (0-5) 03/31/18 07:57 Hyaline Casts 0-2 /lpf (0-2) 03/31/18 07:57 Urine Osmolality 502 mosm/kg (300-1000) 04/05/18 11:37 Ur Random Sodium 168 mmol/L 04/05/18 11:37 Ur Random Potassium 9.9 mmol/L 04/05/18 11:37 Urine Chloride 156 mmol/L (32-290) 04/05/18 14:32 Stool Occult Blood Negative (NEGATIVE) 03/31/18 07:42 Stool Leukocytes, Qual Negative (NEGATIVE) 04/01/18 22:00 Stl Lactoferrin (MARIA DOLORES) 81.6 mcg/mL (<30.0) H 04/01/18 22:00 Urine Opiates Screen Negative (NEGATIVE) 03/31/18 22:31 Urine Methadone Screen Negative (NEGATIVE) 03/31/18 22:31 Ur Barbiturates Screen Negative (NEGATIVE) 03/31/18 22:31 Ur Phencyclidine Scrn Negative (NEGATIVE) 03/31/18 22:31 Ur Amphetamines Screen Negative (NEGATIVE) 03/31/18 22:31 U Benzodiazepines Scrn Negative (NEGATIVE) 03/31/18 22:31 U Oth Cocaine Metabols Negative (NEGATIVE) 03/31/18 22:31 U Cannabinoids Screen Negative (NEGATIVE) 03/31/18 22:31 C. difficile Ag & Toxin Negative (NEGATIVE) 04/01/18 22:00 Giardia Antigen Not detected (Not Detected) 03/31/18 12:56 Hepatitis A IgM Ab Negative (NEGATIVE) 03/31/18 09:13 Hep Bs Antigen Negative (NEGATIVE) 03/31/18 09:13 Hep B Core IgM Ab Negative (NEGATIVE) 03/31/18 09:13 Hepatitis C Antibody Negative (NEGATIVE) 03/31/18 09:13 HIV 1&2 Antibody Screen Negative (NEGATIVE) 03/31/18 09:13 Influenza Typ A,B (EIA) Negative for flu a/b (NEGATIVE) 03/31/18 09:13 Blood Type O POSITIVE 04/02/18 19:36 Antibody Screen Negative 04/02/18 19:36 Discharge Exam - Head Exam Head Exam: NORMAL INSPECTION Discharge Plan - Discharge Medications Prescriptions: Lactobacillus Acidophilus [Bacid Acidophilus] 1 cap PO BID #74 cap - Follow Up Plan Condition: SERIOUS Disposition: HOME/ ROUTINE Instructions: Low Cholesterol, Saturated Fat, and Trans Fat Diet , Cholecystectomy (DC), Sepsis, Adult (DC), Lactobacillus Additional Instructions: The following instructions were explained to patient and a copy will need to be provided to him upon discharge: 1). Please schedule follow up with [facility] locate at [address] [place] [address] in [place], [place] by calling [phone] for an appointment that should take place before the end of this week. The physician there will help you to coordinate your health care. 2). Please schedule follow up with Surgeon Dr. Andrzej Benitez by calling his office [phone] for an appointment to have your caitlyn removed before the end of this week. Dr. Benitez's office is located at [address] [place] [address] [place] [address]. 3). You must be on 7 days more of antibiotics (Ciprofloxacin and Metronidazole). You also need to be on a Probiotic called Lactobacillus to make sure the good bacteria in your colon come back. Please have the following prescriptions filled at your pharmacy on your way home from the hospital and use as directed: Ciprofloxacin 500 mg, 1 tablet by mouth 2x/day (8 AM and 8 PM), Dispense #14 Lactobacillus, 1 tablet by mouth 2x/day (10 AM and 6 PM), Dispense #74 4). Please take care of yourself and be happy. Keegan Chan D.O. Las siguientes instrucciones se explicaron al paciente y se deber proporcionar silvestre copia al momento del nathalia: 1). Por favor, yareli un seguimiento con [facility] en [address] en [place], [place], llamando al [phone] para silvestre dieudonne que debe realizarse antes del final de esta semana. El mdico le ayudar a coordinar chin atencin mdica. 2). Por favor, yareli un seguimiento con el ciruepfianio Benitez llamando a chin oficina al [phone] para pedir silvestre dieudonne para que le retiren los alimentos antes del final de esta semana. La oficina del Dr. Benitez est ubicada en [address] [place] [address]. 3). Debe estar en 7 moreno ms de antibiticos (ciprofloxacina y metronidazol). Tambin debe estar tomando un probitico llamado Lactobacillus para asegurarse de que las bacterias buenas en chin colon regresen. Por favor, llene las siguient es recetas en chin farmacia cuando vaya a casa desde el hospital y selas segn las indicaciones: Ciprofloxacina 500 mg, 1 tableta por va oral 2 veces al da (8 AM y 8 PM), dispensado # 14 Lactobacillus, 1 tableta por va oral 2x / da (10 AM y 6 PM), dispensado # [id number]). Por favor cudate y s turk. Keegan Chan D.O. Referrals: [facility] [Outside] - 04/23/18 10:30 am Andrzej Benitez MD [Staff Provider] -
== END 2018-04-08 13:41 | disposition home or self-care (01) | DRG 710 ==
LOC: C.ER 06:46 → C.9E 11:34 → C.6T 13:29
PROVIDERS: ADMIT Family Medicine; ATTEND Family Medicine
PROC: 0FT44ZZ Resection of Gallbladder, Percutaneous Endoscopic Approach (ICD-10-PCS; principal; 2018-04-03 12:15)
DX: A41.51 Sepsis due to Escherichia coli [E. coli] (principal); K80.12 Calculus of gallbladder with acute and chronic cholecystitis without obstruction; I95.9 Hypotension, unspecified; R74.0 Nonspecific elevation of levels of transaminase and lactic acid dehydrogenase [LDH]; E87.1 Hypo-osmolality and hyponatremia; R19.7 Diarrhea, unspecified; I45.10 Unspecified right bundle-branch block; R00.0 Tachycardia, unspecified; M19.90 Unspecified osteoarthritis, unspecified site; M62.830 Muscle spasm of back; M54.9 Dorsalgia, unspecified; G89.29 Other chronic pain; Z87.01 Personal history of pneumonia (recurrent); Z87.440 Personal history of urinary (tract) infections; Z88.6 Allergy status to analgesic agent

== ENCOUNTER 2018-05-30 08:24 | Outpatient (CLI) | payer OTHER, MEDICAID | END 2018-05-30 08:25 | disposition home or self-care (01) | LOC: C.USIC 08:24 | DX: R10.11 Right upper quadrant pain (principal) ==

== ENCOUNTER 2018-06-19 08:37 | Outpatient (CLI) | payer OTHER | END 2018-06-19 08:38 | disposition home or self-care (01) | LOC: C.USIC 08:38 | DX: K81.9 Cholecystitis, unspecified (principal) ==